=== PATIENT | female | born 1940 | race Two or more races ===

== ENCOUNTER 2020-09-21 20:46 | Inpatient (IN) | payer MEDICARE, OTHER ==
[~2020-09-21] VITALS: Ht 152.4 cm; Wt 31.3 kg
[2020-09-21 21:00] VITALS: BP 116/69
--- NOTE | 2020-09-21 21:14 | Emergency Room Report ---
History of Present Illness General Chief Complaint: Chest Pain Source: Patient (Alphonse Pagan MD) Present Illness HPI Disclaimer: Please note that this report is being documented using [employer] technology. This can lead to erroneous entry secondary to incorrect interpretat ion by the dictating instrument. HPI: 1-year-old female history of hypertension, hyperlipidemia and dementia presents for evaluation of chest pain, abdominal pain and back pain. Patient has history of dementia but her daughter is able to provide additional history. She states that over the past week her mother has had a decreased appetite, increased fatigue, somnolence. She is complaining of some abdominal and midline back pain over the past 2 days and then this morning began to complain of left- sided chest pain that she describes as a "tearing." Does not seem to go through to the back but she feels it is a pressure and ripping sensation. Pain seems to come and go. No exacerbating or relieving factors noted. Denies fever chills. Denies nausea or vomiting. Daughter notes decreased urine output. Covid status unknown. PMH: Hypertension, hyperlipidemia, dementia PSH: Reviewed Allergies: None reported Social Hx: Non-smoker (Alphonse Pagan MD) Allergies: Coded Allergies: No Known Allergies (Unverified , 09/21/20) COVID-19 Screening Contact w/high risk pt: No Experienced COVID-19 symptoms?: No COVID-19 Testing performed MEDIA RELATIONS COORDINATOR: No (Alphonse Pagan MD) Patient History Now: No (Alphonse Pagan MD) Nursing Documentation-PMH Hx Hypertension: Yes (Alphonse Pagan MD) Review of Systems All Other Systems: negative except mentioned in HPI (Alphonse Pagan MD) Physical Exam Vital Signs Date Time Temp Pulse Resp B/P (MAP) Pulse Ox O2 Delivery O2 Flow Rate FiO2 09/21/20 20:52 98.1 98 18 111/68 (82) 90 Room Air General: Awake, anxious, agitated HEENT: NC/AT. EOMI. Cardiovascular: RRR. S1 and S2 normal. No murmur appreciated Resp: Normal work of breathing. No cough, wheezing or crackles appreciated Abdomen: Abdomen is soft, nondistended. Nontender Skin: Intact. No abrasions, laceration or rash over the exposed skin MSK: Frail, decreased muscle bulk. No obvious deformity. No midline tenderness or step-off or deformity in the cervical, thoracic or lumbosacral spine. Neuro: Awake. Agitated, very anxious and frantic (Alphonse Pagan MD) Medical Decision Making Diagnostic Impression: Primary Impression: Chest pain Additional Impression: Pneumonia ER Course Differential includes but not limited to viral syndrome, bronchitis, pneumonia, musculoskeletal chest pain, GERD, ACS, thoracic aneurysm, abdominal aortic aneurysm, gastritis, gastroenteritis pancreatitis, cholecystitis, nephrolithiasis, mesenteric ischemia, bowel obstruction among others. EKG on arrival is difficult to interpret due to patient agitation. Will provide analgesics and repeat though there are no obvious ischemic changes. Concern for aneurysm will send for CTA and draw broad labs. The patient will require admission. (Alphonse Pagan MD) ER Course Procedure: XRAY Chest 1v EXAM: XR Chest, 1 View CLINICAL HISTORY: CP TECHNIQUE: Frontal view of the chest. COMPARISON: No relevant prior studies available. FINDINGS: Lungs: Moderate amount of scattered patchy airspace opacities in both lungs, worse over middle and lower lung zones. Pleural space: Unremarkable. No pneumothorax. Mediastinum: Unremarkable. Bones/joints: Osteopenia. Vasculature: Calcified aorta. IMPRESSION: Bilateral pneumonia. Recommend Followup to resolution to rule out potential underlying neoplastic etiologies. Laboratory Tests Test 09/21/20 21:33 White Blood Count 14.2 K/UL (4.8-10.8) H Red Blood Count 3.59 M/UL (4.20-5.40) L Hemoglobin 10.5 G/DL (12.0-16.0) L Hematocrit 29.8 % (37.0-47.0) L Mean Corpuscular Volume 83 FL (80-99) Mean Corpuscular Hemoglobin 29.4 PG (27.0-31.0) Mean Corpuscular Hemoglobin Concent 35.4 G/DL (32.0-36.0) Red Cell Distribution Width 14.3 % (11.6-14.8) Platelet Count 300 K/UL (150-450) Mean Platelet Volume 8.9 FL (6.5-10.1) Neutrophils (%) (Auto) 89.9 % (45.0-75.0) H Lymphocytes (%) (Auto) 5.4 % (20.0-45.0) L Monocytes (%) (Auto) 3.8 % (1.0-10.0) Eosinophils (%) (Auto) 0.3 % (0.0-3.0) Basophils (%) (Auto) 0.7 % (0.0-2.0) Prothrombin Time 12.1 SEC (9.30-11.50) H Prothrombin Time INR 1.1 (0.9-1.1) Activated Partial Thromboplast Time 29 SEC (23-33) D-Dimer 1.91 mg/L FEU (0.00-0.49) H Sodium Level 140 MMOL/L (136-145) Potassium Level 3.2 MMOL/L (3.5-5.1) L Chloride Level 103 MMOL/L (98-107) Carbon Dioxide Level 29 MMOL/L (21-32) Anion Gap 8 mmol/L (5-15) Blood Urea Nitrogen 19 mg/dL (7-18) H Creatinine 1.0 MG/DL (0.55-1.30) Estimated Glomerular Filtration Rate 53.1 mL/min (>60) Glucose Level 151 MG/DL (74-106) H Calcium Level 8.6 MG/DL (8.5-10.1) Ferritin 298 NG/ML (8-388) Total Bilirubin 0.4 MG/DL (0.2-1.0) Aspartate Amino Transferase (AST) 16 U/L (15-37) Alanine Aminotransferase (ALT) 14 U/L (12-78) Alkaline Phosphatase 68 U/L (46-116) Lactate Dehydrogenase 323 U/L (81-234) H Troponin I 0.005 ng/mL (0.000-0.056) Pro-B-Type Natriuretic Peptide Pending Total Protein 7.5 G/DL (6.4-8.2) Albumin 2.8 G/DL (3.4-5.0) L Globulin 4.7 g/dL Albumin/Globulin Ratio 0.6 (1.0-2.7) L Microbiology Date/Time Source Procedure Growth Status 09/21/20 01:35 Nasopharynx SARS-CoV-2 RdRp Gene Assay - Final Complete 80-year-old female here with chest pain. Patient's chest x-ray revealed bilateral pneumonia. Patient had a leukocytosis with white blood cell count of 14,000. Attempts were made to perform a CT angiogram to rule out aortic dissection as a cause of the patient's chest pain. However the patient was incredibly hostile and noncompliant. Patient received Ativan, Benadryl, Haldol without much resolution of her erratic behavior. Patient's daughter bedside says "this is how she gets at night. That is why she gets Seroquel." Attempts will be made to perform CTA. Patient was given ceftriaxone and azithromycin to treat community-acquired pneumonia. Covid swab negative. Patient to be admitted to telemetry. This was all discussed with the admitting physician Dr. Haley. (Marvin Monsalve M.D.) EKG Diagnostic Results Troponin ordered: Yes When was troponin ordered?: Sep 21, 2020 EKG Time: 21:49 Rate: normal Rhythm: NSR ST Segments: no acute changes Other Impression Sinus rhythm, normal axis, normal intervals, no ST segment changes (Alphonse Pagan MD) Rhythm Strip Diag. Results Rhythm Strip Time: 21:49 EP Interpretation: yes Rate: 90s Rhythm: NSR, no PVC's, no ectopy (Alphonse Pagan MD) Chest X-Ray Diagnostic Results Chest X-Ray Diagnostic Results : Chest X-Ray Ordered: Yes # of Views/Limited/Complete: 1 View Indication: Chest Pain EP Interpretation: Yes Interpretation: no effusion, no pneumothorax, other - Bilateral infiltrates Impression: Other - Bilateral pneumonia Electronically Signed by: Electronically signed by Dr. Alphonse Pagan MD (Alphonse Pagan MD) Last Vital Signs Date Time Temp Pulse Resp B/P (MAP) Pulse Ox O2 Delivery O2 Flow Rate FiO2 09/21/20 20:52 98.1 98 18 111/68 (82) 90 Room Air (Alphonse Pagan MD) Disposition: ADMITTED INPATIENT Condition: Serious Referrals: Roseanne Haley M.D. (PCP) Alphonse Pagan MD Sep 21, 2020 21:14 Marvin Monsalve M.D. Sep 22, 2020 03:12
[2020-09-21] MEDS ORDERED: LORazepam Inj 2mg/ml 1ml IV ONE ×2 (21:15→23:45)
--- NOTE | 2020-09-21 21:15 | NUR ---
Note tesfaye in EDM - 09/22/20 at 0151 by QI ED Nurse Note: pt walked into the Ed due to tearing chest pain,generalize weakness, and loss of appetite. pt vitals are stabel, monitor on, no sob, no fever, and no cough. Iv intatied; blood and urine sent to the lab. pt daughter is with the pt.
--- NOTE | 2020-09-21 21:16 | NUR ---
ED Nurse Note: pt walked into the Ed c/o tearing like chest pain,generalize weakness, and loss of appetite x 1 week. monitor on; vitals are stable.No sob,cough, and fever at the moment. Iv initiated; blood and urine sent to the lab. pt daughter is with the pt.
[2020-09-21 22:17] LABS: HEMATOCRIT 29.8 % (37.0-47.0); HEMOGLOBIN 10.5 G/DL (12.0-16.0); MEAN CORPUSCULAR VOLUME 83 FL (80-99); PLATELET COUNT 300 K/UL (150-450); RED BLOOD COUNT 3.59 M/UL (4.20-5.40); RED CELL DISTRIBUTION WIDTH 14.3 % (11.6-14.8); WHITE BLOOD COUNT 14.2 K/UL (4.8-10.8)
[2020-09-21 22:18] LABS: BASOPHILS % (AUTO) 0.7 % (0.0-2.0); EOSINOPHILS % (AUTO) 0.3 % (0.0-3.0); LYMPHOCYTES % (AUTO) 5.4 % (20.0-45.0); MONOCYTES % (AUTO) 3.8 % (1.0-10.0); NEUTROPHILS % (AUTO) 89.9 % (45.0-75.0)
[2020-09-21 22:28] LABS: INR 1.1 (0.9-1.1)
--- NOTE | 2020-09-21 22:45 | Diagnostic Imaging Report ---
EXAM: XR Chest, 1 View CLINICAL HISTORY: CP TECHNIQUE: Frontal view of the chest. COMPARISON: No relevant prior studies available. FINDINGS: Lungs: Moderate amount of scattered patchy airspace opacities in both lungs, worse over middle and lower lung zones. Pleural space: Unremarkable. No pneumothorax. Mediastinum: Unremarkable. Bones/joints: Osteopenia. Vasculature: Calcified aorta. IMPRESSION: Bilateral pneumonia. Recommend Followup to resolution to rule out potential underlying neoplastic etiologies.
[2020-09-21 23:00] VITALS: BP 116/72
[2020-09-21 23:07] LABS: CALCIUM 8.6 MG/DL (8.5-10.1); POTASSIUM 3.2 MMOL/L (3.5-5.1)
[2020-09-21 23:12] LABS: ALBUMIN 2.8 G/DL (3.4-5.0); ALBUMIN/GLOBULIN RATIO 0.6 (1.0-2.7); BILIRUBIN,TOTAL 0.4 MG/DL (0.2-1.0)
[2020-09-21 23:18] LABS: FERRITIN 298 NG/ML (8-388); LACTATE DEHYDROGENASE 323 U/L (81-234)
[2020-09-22] MEDS ORDERED: Haloperidol Lactate 2 MG in D5W 55 ML IVPB ONE ×2 (00:30→02:00)
[2020-09-22 00:45] VITALS: BP 117/69
--- NOTE | 2020-09-22 00:47 | NUR ---
ED Nurse Note: pt is restless to get ct scan. two 0.5ml ativan given but didnt work. haldol given and waiting until the haldol works.
[2020-09-22] MEDS ORDERED: cefTRIAXone 1 GM in NS 55 ML IVPB ONE (01:30)
[2020-09-22] MEDS ORDERED: Azithromycin 500 MG in NS 275 ML IV ONE (01:30)
[2020-09-22] MEDS ORDERED: DiphenhydrAMINE 50mg/ml Inj IVP ONE (02:00)
--- NOTE | 2020-09-22 02:35 | NUR ---
ED Nurse Note: pt is agitated, anxious, pulled out iv and she took off the monitor. EDMD aware and he ordered; haldol, bendryl, and bilateral soft restrains.
--- NOTE | 2020-09-22 04:00 | NUR ---
ED Nurse Note: pt is on the bed talking with her daughter. Her vitals are stable .
[2020-09-22 06:22] LABS: BASOPHILS % (AUTO) 0.9 % (0.0-2.0); HEMATOCRIT 30.8 % (37.0-47.0); HEMOGLOBIN 10.5 G/DL (12.0-16.0); LYMPHOCYTES % (AUTO) 11.3 % (20.0-45.0); MEAN CORPUSCULAR VOLUME 85 FL (80-99); MONOCYTES % (AUTO) 4.1 % (1.0-10.0); NEUTROPHILS % (AUTO) 82.8 % (45.0-75.0); PLATELET COUNT 230 K/UL (150-450); RED BLOOD COUNT 3.64 M/UL (4.20-5.40); RED CELL DISTRIBUTION WIDTH 13.2 % (11.6-14.8); WHITE BLOOD COUNT 9.3 K/UL (4.8-10.8)
[2020-09-22 06:47] LABS: ALANINE AMINOTRANSFERASE 11 U/L (12-78); ALBUMIN 2.2 G/DL (3.4-5.0); ALBUMIN/GLOBULIN RATIO 0.5 (1.0-2.7); ALKALINE PHOSPHATASE 54 U/L (46-116); ANION GAP 8 mmol/L (5-15); ASPARTATE AMINO TRANSFERASE 14 U/L (15-37); BILIRUBIN,TOTAL 0.3 MG/DL (0.2-1.0); BLOOD UREA NITROGEN 12 mg/dL (7-18); CARBON DIOXIDE 25 MMOL/L (21-32); CHLORIDE 110 MMOL/L (98-107); CREATININE 0.6 MG/DL (0.55-1.30); SODIUM 143 MMOL/L (136-145)
[2020-09-22 06:58] LABS: POTASSIUM 2.7 MMOL/L (3.5-5.1)
--- NOTE | 2020-09-22 07:45 | NUR ---
ED Nurse Note: Received pt from VIRGILIO Fuller for continuity of care. Pt on bed, awake and alert, noted with occassional confusion, VSS, attached on policy loan calculator, IV site patent and intact, blood drawn for cultures, daughter at bedside. will continue to monitor.
--- NOTE | 2020-09-22 07:48 | NUR ---
ED Nurse Note: Breakfast tray consumed, no acute distress noted.
[2020-09-22] MEDS: NS w/KCl 40mEq 1,000 ML IV SCH ×4 (08:15→23:46)
[2020-09-22 08:33] VITALS: BP 121/72
--- NOTE | 2020-09-22 08:52 | NUR ---
ED Nurse Note: Pt complains of headache and L sided chest pain as mentioned by her daughter. Notified ERMD.
[2020-09-22] MEDS ORDERED: Morphine Sulfate 2mg/ml Inj(IV/IM USE ONLY) IVP ONE (09:00)
--- NOTE | 2020-09-22 09:42 | Consultation ---
History of Present Illness General Chief Complaint: Chest Pain Referring physician: Sudha Reason for Consultation: Medical co-management Present Illness HPI History is limited due to patient's altered mental status. This is a 80-year-old female with a past medical history of hypertension, hyperlipidemia, dementia who presents to the ER with chest pain and cough. Allergies: Coded Allergies: No Known Allergies (Unverified , 09/21/20) Medication History Scheduled Amlodipine Besylate (Norvasc), 10 MG ORAL DAILY, (Reported) Amoxicillin/Potassium Clav 875-125* (Augmentin 875-125 Tablet*), 1 TAB ORAL TWICE A DAY Benazepril Hcl* (Benazepril Hcl*), 40 MG ORAL DAILY, (Reported) Doxycycline Monohydrate* (Doxycycline Monohydrate*), 100 MG ORAL Q12H Memantine HCl (Memantine HCl ER), 21 MG PO QD, (Reported) Mirtazapine* (Mirtazapine*), 7.5 MG ORAL BEDTIME, (Reported) Quetiapine Fumarate (Seroquel), 50 MG ORAL QHS, (Reported) Scheduled PRN Trazodone Hcl* (Desyrel*), 50 MG ORAL BEDTIME PRN for qhs, (Reported) Patient History Limited by: medical condition History Provided By: Medical Record, EMS Healthcare decision maker Resuscitation status Full per policy Advanced Directive on File Physical Exam Last 24 Hour Vital Signs Date Time Temp Pulse Resp B/P (MAP) Pulse Ox O2 Delivery O2 Flow Rate FiO2 09/22/20 08:33 97.8 88 16 121/72 98 Room Air 09/22/20 00:45 97.6 96 18 117/69 97 Room Air 09/21/20 23:48 92 19 113/72 98 09/21/20 23:00 97.6 89 18 116/72 97 Room Air 09/21/20 21:50 96 19 119/69 98 09/21/20 21:50 96 19 119/69 98 09/21/20 21:20 98 18 111/68 90 09/21/20 21:00 97 18 Room Air 09/21/20 21:00 97.9 97 19 116/69 97 09/21/20 20:52 98.1 98 18 111/68 (82) 90 Room Air Laboratory Tests Test 09/21/20 21:33 09/22/20 05:55 White Blood Count 14.2 K/UL (4.8-10.8) H 9.3 K/UL (4.8-10.8) Red Blood Count 3.59 M/UL (4.20-5.40) L 3.64 M/UL (4.20-5.40) L Hemoglobin 10.5 G/DL (12.0-16.0) L 10.5 G/DL (12.0-16.0) L Hematocrit 29.8 % (37.0-47.0) L 30.8 % (37.0-47.0) L Mean Corpuscular Volume 83 FL (80-99) 85 FL (80-99) Mean Corpuscular Hemoglobin 29.4 PG (27.0-31.0) 28.9 PG (27.0-31.0) Mean Corpuscular Hemoglobin Concent 35.4 G/DL (32.0-36.0) 34.2 G/DL (32.0-36.0) Red Cell Distribution Width 14.3 % (11.6-14.8) 13.2 % (11.6-14.8) Platelet Count 300 K/UL (150-450) 230 K/UL (150-450) Mean Platelet Volume 8.9 FL (6.5-10.1) 8.6 FL (6.5-10.1) Neutrophils (%) (Auto) 89.9 % (45.0-75.0) H 82.8 % (45.0-75.0) H Lymphocytes (%) (Auto) 5.4 % (20.0-45.0) L 11.3 % (20.0-45.0) L Monocytes (%) (Auto) 3.8 % (1.0-10.0) 4.1 % (1.0-10.0) Eosinophils (%) (Auto) 0.3 % (0.0-3.0) 1.0 % (0.0-3.0) Basophils (%) (Auto) 0.7 % (0.0-2.0) 0.9 % (0.0-2.0) Prothrombin Time 12.1 SEC (9.30-11.50) H Prothromb Time International Ratio 1.1 (0.9-1.1) Activated Partial Thromboplast Time 29 SEC (23-33) D-Dimer 1.91 mg/L FEU (0.00-0.49) H Sodium Level 140 MMOL/L (136-145) 143 MMOL/L (136-145) Potassium Level 3.2 MMOL/L (3.5-5.1) L 2.7 MMOL/L (3.5-5.1) *L Chloride Level 103 MMOL/L (98-107) 110 MMOL/L (98-107) H Carbon Dioxide Level 29 MMOL/L (21-32) 25 MMOL/L (21-32) Anion Gap 8 mmol/L (5-15) 8 mmol/L (5-15) Blood Urea Nitrogen 19 mg/dL (7-18) H 12 mg/dL (7-18) Creatinine 1.0 MG/DL (0.55-1.30) 0.6 MG/DL (0.55-1.30) Estimat Glomerular Filtration Rate 53.1 mL/min (>60) > 60 mL/min (>60) Glucose Level 151 MG/DL (74-106) H 72 MG/DL (74-106) L Calcium Level 8.6 MG/DL (8.5-10.1) 7.0 MG/DL (8.5-10.1) L Ferritin 298 NG/ML (8-388) Total Bilirubin 0.4 MG/DL (0.2-1.0) 0.3 MG/DL (0.2-1.0) Aspartate Amino Transf (AST/SGOT) 16 U/L (15-37) 14 U/L (15-37) L Alanine Aminotransferase (ALT/SGPT) 14 U/L (12-78) 11 U/L (12-78) L Alkaline Phosphatase 68 U/L (46-116) 54 U/L (46-116) Lactate Dehydrogenase 323 U/L (81-234) H Troponin I 0.005 ng/mL (0.000-0.056) Pro-B-Type Natriuretic Peptide Pending Total Protein 7.5 G/DL (6.4-8.2) 6.3 G/DL (6.4-8.2) L Albumin 2.8 G/DL (3.4-5.0) L 2.2 G/DL (3.4-5.0) L Globulin 4.7 g/dL 4.1 g/dL Albumin/Globulin Ratio 0.6 (1.0-2.7) L 0.5 (1.0-2.7) L Height (Feet): 5 Weight (Pounds): 82 Medications Current Medications Medications (Trade) Dose Ordered Sig/Martin Route PRN Reason Start Time Stop Time Status Last Admin Dose Admin Potassium Chloride/Sodium Chloride 1,000 ml @ 200 mls/hr Q5H IV 09/22/20 07:00 09/23/20 06:59 09/22/20 08:15 Marvin Romeo D.O. Sep 22, 2020 09:42
--- NOTE | 2020-09-22 10:21 | Consultation ---
History of Present Illness General Chief Complaint: Chest Pain Reason for Consultation: Electrolyte deranagements Present Illness HPI This is an 80-year-old female with a past medical history of hypertension, hyperlipidemia and dementia. Over the past week the patient has had decreased appetite increased fatigue and somnolence. She was complaining of some abdominal pain, back pain for 2 days. Left-sided chest pain that she describes a tearing sensation. The ren is intermittent. Denies anything making it better or worse. The patient tested negative for COVID-19. In the ER Chest x-ray showed bilateral pneumonia. An attempt was made to perform CT angio to rule out aortic dissection, however patient altered and erratic. Attempts to be made to perform CTA. The patient received ceftriaxone and azithromycin once to treat community-acquired pneumonia. The patient then admitted to telemetry. Awaiting bed placement. Allergies: Coded Allergies: No Known Allergies (Unverified , 09/21/20) Medication History Scheduled Amlodipine Besylate (Norvasc), 10 MG ORAL DAILY, (Reported) Benazepril Hcl* (Benazepril Hcl*), 40 MG ORAL DAILY, (Reported) Memantine HCl (Memantine HCl ER), 21 MG PO QD, (Reported) Mirtazapine* (Mirtazapine*), 7.5 MG ORAL BEDTIME, (Reported) Quetiapine Fumarate (Seroquel), 50 MG ORAL QHS, (Reported) Scheduled PRN Trazodone Hcl* (Desyrel*), 50 MG ORAL BEDTIME PRN for qhs, (Reported) Patient History Healthcare decision maker Resuscitation status Advanced Directive on File Review of Systems ROS Narrative unable to obtain due to AMS Physical Exam General Appearance: lethargic Lines, tubes and drains: peripheral HEENT: normocephalic, atraumatic Neck: non-tender, normal alignment Respiratory/Chest: chest wall non-tender, lungs clear, normal breath sounds Cardiovascular/Chest: normal peripheral pulses, normal rate Abdomen: normal bowel sounds, non tender Neurologic: disoriented Last 24 Hour Vital Signs Date Time Temp Pulse Resp B/P (MAP) Pulse Ox O2 Delivery O2 Flow Rate FiO2 09/22/20 08:33 97.8 88 16 121/72 98 Room Air 09/22/20 00:45 97.6 96 18 117/69 97 Room Air 09/21/20 23:48 92 19 113/72 98 09/21/20 23:00 97.6 89 18 116/72 97 Room Air 09/21/20 21:50 96 19 119/69 98 09/21/20 21:50 96 19 119/69 98 09/21/20 21:20 98 18 111/68 90 09/21/20 21:00 97 18 Room Air 09/21/20 21:00 97.9 97 19 116/69 97 09/21/20 20:52 98.1 98 18 111/68 (82) 90 Room Air Laboratory Tests Test 09/21/20 21:33 09/22/20 05:55 White Blood Count 14.2 K/UL (4.8-10.8) H 9.3 K/UL (4.8-10.8) Red Blood Count 3.59 M/UL (4.20-5.40) L 3.64 M/UL (4.20-5.40) L Hemoglobin 10.5 G/DL (12.0-16.0) L 10.5 G/DL (12.0-16.0) L Hematocrit 29.8 % (37.0-47.0) L 30.8 % (37.0-47.0) L Mean Corpuscular Volume 83 FL (80-99) 85 FL (80-99) Mean Corpuscular Hemoglobin 29.4 PG (27.0-31.0) 28.9 PG (27.0-31.0) Mean Corpuscular Hemoglobin Concent 35.4 G/DL (32.0-36.0) 34.2 G/DL (32.0-36.0) Red Cell Distribution Width 14.3 % (11.6-14.8) 13.2 % (11.6-14.8) Platelet Count 300 K/UL (150-450) 230 K/UL (150-450) Mean Platelet Volume 8.9 FL (6.5-10.1) 8.6 FL (6.5-10.1) Neutrophils (%) (Auto) 89.9 % (45.0-75.0) H 82.8 % (45.0-75.0) H Lymphocytes (%) (Auto) 5.4 % (20.0-45.0) L 11.3 % (20.0-45.0) L Monocytes (%) (Auto) 3.8 % (1.0-10.0) 4.1 % (1.0-10.0) Eosinophils (%) (Auto) 0.3 % (0.0-3.0) 1.0 % (0.0-3.0) Basophils (%) (Auto) 0.7 % (0.0-2.0) 0.9 % (0.0-2.0) Prothrombin Time 12.1 SEC (9.30-11.50) H Prothromb Time International Ratio 1.1 (0.9-1.1) Activated Partial Thromboplast Time 29 SEC (23-33) D-Dimer 1.91 mg/L FEU (0.00-0.49) H Sodium Level 140 MMOL/L (136-145) 143 MMOL/L (136-145) Potassium Level 3.2 MMOL/L (3.5-5.1) L 2.7 MMOL/L (3.5-5.1) *L Chloride Level 103 MMOL/L (98-107) 110 MMOL/L (98-107) H Carbon Dioxide Level 29 MMOL/L (21-32) 25 MMOL/L (21-32) Anion Gap 8 mmol/L (5-15) 8 mmol/L (5-15) Blood Urea Nitrogen 19 mg/dL (7-18) H 12 mg/dL (7-18) Creatinine 1.0 MG/DL (0.55-1.30) 0.6 MG/DL (0.55-1.30) Estimat Glomerular Filtration Rate 53.1 mL/min (>60) > 60 mL/min (>60) Glucose Level 151 MG/DL (74-106) H 72 MG/DL (74-106) L Calcium Level 8.6 MG/DL (8.5-10.1) 7.0 MG/DL (8.5-10.1) L Ferritin 298 NG/ML (8-388) Total Bilirubin 0.4 MG/DL (0.2-1.0) 0.3 MG/DL (0.2-1.0) Aspartate Amino Transf (AST/SGOT) 16 U/L (15-37) 14 U/L (15-37) L Alanine Aminotransferase (ALT/SGPT) 14 U/L (12-78) 11 U/L (12-78) L Alkaline Phosphatase 68 U/L (46-116) 54 U/L (46-116) Lactate Dehydrogenase 323 U/L (81-234) H Troponin I 0.005 ng/mL (0.000-0.056) Pro-B-Type Natriuretic Peptide Pending Total Protein 7.5 G/DL (6.4-8.2) 6.3 G/DL (6.4-8.2) L Albumin 2.8 G/DL (3.4-5.0) L 2.2 G/DL (3.4-5.0) L Globulin 4.7 g/dL 4.1 g/dL Albumin/Globulin Ratio 0.6 (1.0-2.7) L 0.5 (1.0-2.7) L Height (Feet): 5 Weight (Pounds): 82 Medications Current Medications Medications (Trade) Dose Ordered Sig/Martin Route PRN Reason Start Time Stop Time Status Last Admin Dose Admin Potassium Chloride/Sodium Chloride 1,000 ml @ 200 mls/hr Q5H IV 09/22/20 07:00 09/23/20 06:59 09/22/20 08:15 Assessment/Plan Diagnosis [place] I: #Hypokalemia #Sepsis #Pneumonia #Hypoxemic respiratory failure #AMS #history of dementia - admit to [facility] - IVF - antibiotics - ID eval - pulm eval - neuro eval - monitor renal function time spent 65 min Roseanne Haley M.D. Sep 22, 2020 10:20
[2020-09-22 12:00] VITALS: BP 118/76
[2020-09-22] MEDS ORDERED: Haloperidol 5mg/ml Inj IM ONE (12:00)
--- NOTE | 2020-09-22 14:18 | NUR ---
ED Nurse Note: mills catheter inserted today for intake and output and pt comfort measures. pt on bed, awake and alert, no acute distress noted.
--- NOTE | 2020-09-22 17:10 | Infectious Diseases Prog Note ---
Assessment/Plan Assessment/Plan Full consult to follow: patient seen in ER A) 1) pneumonia, leukocytosis, ? sepsis, aspiration risk 2) pmh noted 3) allergies - nkda P) 1) ceftriaxone, azithromycin, flagyl 2) f/u on labs, chest x-ray and cultures 3) will f/u 4) thank you Subjective Allergies: Coded Allergies: No Known Allergies (Unverified , 09/21/20) Objective Last 24 Hour Vital Signs Date Time Temp Pulse Resp B/P (MAP) Pulse Ox O2 Delivery O2 Flow Rate FiO2 09/22/20 12:00 97.8 88 15 118/76 99 Room Air 09/22/20 09:26 97.8 09/22/20 08:33 97.8 88 16 121/72 98 Room Air 09/22/20 00:45 97.6 96 18 117/69 97 Room Air 09/21/20 23:48 92 19 113/72 98 09/21/20 23:00 97.6 89 18 116/72 97 Room Air 09/21/20 21:50 96 19 119/69 98 09/21/20 21:50 96 19 119/69 98 09/21/20 21:20 98 18 111/68 90 09/21/20 21:00 97 18 Room Air 09/21/20 21:00 97.9 97 19 116/69 97 09/21/20 20:52 98.1 98 18 111/68 (82) 90 Room Air Height (Feet): 5 Weight (Pounds): 82 Microbiology Date/Time Source Procedure Growth Status 09/21/20 01:35 Nasopharynx SARS-CoV-2 RdRp Gene Assay - Final Complete Laboratory Tests Test 09/21/20 21:33 09/22/20 05:55 White Blood Count 14.2 K/UL (4.8-10.8) H 9.3 K/UL (4.8-10.8) Red Blood Count 3.59 M/UL (4.20-5.40) L 3.64 M/UL (4.20-5.40) L Hemoglobin 10.5 G/DL (12.0-16.0) L 10.5 G/DL (12.0-16.0) L Hematocrit 29.8 % (37.0-47.0) L 30.8 % (37.0-47.0) L Mean Corpuscular Volume 83 FL (80-99) 85 FL (80-99) Mean Corpuscular Hemoglobin 29.4 PG (27.0-31.0) 28.9 PG (27.0-31.0) Mean Corpuscular Hemoglobin Concent 35.4 G/DL (32.0-36.0) 34.2 G/DL (32.0-36.0) Red Cell Distribution Width 14.3 % (11.6-14.8) 13.2 % (11.6-14.8) Platelet Count 300 K/UL (150-450) 230 K/UL (150-450) Mean Platelet Volume 8.9 FL (6.5-10.1) 8.6 FL (6.5-10.1) Neutrophils (%) (Auto) 89.9 % (45.0-75.0) H 82.8 % (45.0-75.0) H Lymphocytes (%) (Auto) 5.4 % (20.0-45.0) L 11.3 % (20.0-45.0) L Monocytes (%) (Auto) 3.8 % (1.0-10.0) 4.1 % (1.0-10.0) Eosinophils (%) (Auto) 0.3 % (0.0-3.0) 1.0 % (0.0-3.0) Basophils (%) (Auto) 0.7 % (0.0-2.0) 0.9 % (0.0-2.0) Prothrombin Time 12.1 SEC (9.30-11.50) H Prothromb Time International Ratio 1.1 (0.9-1.1) Activated Partial Thromboplast Time 29 SEC (23-33) D-Dimer 1.91 mg/L FEU (0.00-0.49) H Sodium Level 140 MMOL/L (136-145) 143 MMOL/L (136-145) Potassium Level 3.2 MMOL/L (3.5-5.1) L 2.7 MMOL/L (3.5-5.1) *L Chloride Level 103 MMOL/L (98-107) 110 MMOL/L (98-107) H Carbon Dioxide Level 29 MMOL/L (21-32) 25 MMOL/L (21-32) Anion Gap 8 mmol/L (5-15) 8 mmol/L (5-15) Blood Urea Nitrogen 19 mg/dL (7-18) H 12 mg/dL (7-18) Creatinine 1.0 MG/DL (0.55-1.30) 0.6 MG/DL (0.55-1.30) Estimat Glomerular Filtration Rate 53.1 mL/min (>60) > 60 mL/min (>60) Glucose Level 151 MG/DL (74-106) H 72 MG/DL (74-106) L Calcium Level 8.6 MG/DL (8.5-10.1) 7.0 MG/DL (8.5-10.1) L Ferritin 298 NG/ML (8-388) Total Bilirubin 0.4 MG/DL (0.2-1.0) 0.3 MG/DL (0.2-1.0) Aspartate Amino Transf (AST/SGOT) 16 U/L (15-37) 14 U/L (15-37) L Alanine Aminotransferase (ALT/SGPT) 14 U/L (12-78) 11 U/L (12-78) L Alkaline Phosphatase 68 U/L (46-116) 54 U/L (46-116) Lactate Dehydrogenase 323 U/L (81-234) H Troponin I 0.005 ng/mL (0.000-0.056) Pro-B-Type Natriuretic Peptide Pending Total Protein 7.5 G/DL (6.4-8.2) 6.3 G/DL (6.4-8.2) L Albumin 2.8 G/DL (3.4-5.0) L 2.2 G/DL (3.4-5.0) L Globulin 4.7 g/dL 4.1 g/dL Albumin/Globulin Ratio 0.6 (1.0-2.7) L 0.5 (1.0-2.7) L Current Medications Medications (Trade) Dose Ordered Sig/Martin Route PRN Reason Start Time Stop Time Status Last Admin Dose Admin Azithromycin 500 mg/Dextrose 275 ml @ 275 mls/hr Q24HRS IV 09/23/20 01:00 09/28/20 00:59 Ceftriaxone Sodium 1 gm/ Dextrose 55 ml @ 110 mls/hr Q24HRS IVPB 09/23/20 00:00 09/30/20 00:00 Potassium Chloride/Sodium Chloride 1,000 ml @ 200 mls/hr Q5H IV 09/22/20 07:00 09/23/20 06:59 09/22/20 12:00 Shan Arnold MD Sep 22, 2020 17:10
--- NOTE | 2020-09-22 19:15 | Consultation ---
DATE OF CONSULTATION: 09/22/2020 CONSULTING PHYSICIAN: Rosemary Jimenez ATTENDING PHYSICIAN: Dr. Haley. REASON FOR CONSULTATION: Pneumonia. HISTORY OF PRESENT ILLNESS: This is an 80-year-old female with history of hypertension, hyperlipidemia, dementia, who presented for evaluation of chest pain, abdominal pain, and back pain. The patient has dementia, but her daughter is present with her in the ER to provide additional history. Daughter states over the past week her mother has had a decreased appetite, increased fatigue, somnolence. She is complaining of some abdominal pain in midline, back pain over the past 2 days, then this morning began to complain of left-sided chest pain that she described as tearing. The patient reports it is a pressure-like and ripping sensation. The patient seems to wax and wane. Denies exacerbating or relieving factors. Denies fever, chills, nausea, vomiting. Daughter noted decreased urine output. The patient tested negative for COVID-19. Chest x-ray showed bilateral pneumonia. Attempts were made to perform a CT angiogram to rule out aortic dissection as the cause of the patient's chest pain. However, she was acting erratic and noncompliant. Attempts will be made again to perform CTA. The patient received ceftriaxone and azithromycin once to treat community-acquired pneumonia. The patient will be admitted to telemetry. Awaiting bed placement. PAST MEDICAL HISTORY: Hypertension, hyperlipidemia, dementia. MEDICATIONS: Unknown. ALLERGIES: No known allergies. FAMILY HISTORY: Noncontributory. PERSONAL/SOCIAL HISTORY: Lives at home with family. REVIEW OF SYSTEMS: Negative except as mentioned in the HPI. PHYSICAL EXAMINATION: VITAL SIGNS: Blood pressure 121/72, heart rate 88, respiratory rate 16, weight 37 kg, height 152 cm. GENERAL: Awake, anxious, agitated. HEENT: Normocephalic, atraumatic. EOMI. CARDIOVASCULAR: Regular rate and rhythm. S1 and S2 normal. No murmur appreciated. RESPIRATORY: Normal work of breathing. No cough, wheezing, or crackles appreciated. ABDOMEN: Soft, nontender, nondistended. SKIN: Intact. No abrasions, lacerations, or rash over the exposed skin. MUSCULOSKELETAL: Frail, decreased muscle bulk. No obvious deformity. No midline tenderness or step-off or deformity in the cervical, thoracic, or lumbosacral spine. NEUROLOGIC: Awake, agitated, frantic. LABORATORY DATA: Lab testing shows hemoglobin 10.5, hematocrit 30.8. Chemistries show potassium 2.7, chloride 110, calcium 7.0. D-dimer 1.91. IMPRESSION: 1. Pneumonia - status post IV once azithromycin, ceftriaxone in the ER. - Currently saturating well on room air. - Provide supplemental oxygen as needed. - We will start azithromycin, Rocephin. 2. Chest pain - rule out aortic dissection with CT angiogram pending. We will follow. The care for this patient was discussed with my supervising physician. Time spent for this case was approximately 31 minutes. Casimiro Miranda M.D. BENNETT Davis DR: MARIAMA JOB#: [id number] CC: GLEN
--- NOTE | 2020-09-22 19:17 | NUR ---
HAND-OFF: Report recived from Manda POOLE.
--- NOTE | 2020-09-22 19:17 | NUR ---
ED Nurse Note: hand off given to dolores marie.
--- NOTE | 2020-09-22 19:45 | NUR ---
NURSE NOTES: Receive a report from VIRGILIO Knapp from ED.
--- NOTE | 2020-09-22 19:49 | NUR ---
ED Nurse Note: report given to elliot Wallace Rn.
[2020-09-22 20:00] VITALS: BP 131/76
--- NOTE | 2020-09-22 20:00 | NUR ---
TRANSFER TO FLOOR: Patient transferred to as ordered, per ER MD. Report given to RN Madison. Belongings and medications sent with pt. Belongings list present.Vitals stable on RA as documetned. Removed restraints as per policy.
--- NOTE | 2020-09-22 20:00 | NUR ---
NURSE NOTES: Pt admitted from ED via hospital bed. Awake but agitated. Mauritian speaking. No distress noted but trying to getting out of bed. On bed alarm. Given orientation and trying to calm her down. IV is running from ED. Bed is lowest and locked. Done check belonging list. Came with home medication and denture upper. Call light within reach. Will continue to monitor.
[2020-09-22 20:29] LABS: APPEARANCE,URINE CLEAR; BILIRUBIN, URINE NEGATIVE (NEGATIVE); COLOR,URINE PALE YELLOW; GLUCOSE, URINE (UA) NEGATIVE (NEGATIVE); KETONES,URINE NEGATIVE (NEGATIVE); LEUKOCYTE ESTERASE ,URINE NEGATIVE (NEGATIVE); NITRITE,URINE NEGATIVE (NEGATIVE); PH,URINE 7 (4.5-8.0); PROTEIN,URINE 1+ (NEGATIVE); UROBILINOGEN,URINE NORMAL MG/DL (0.0-1.0)
--- NOTE | 2020-09-22 20:41 | History and Physical ---
History of Present Illness General Date patient seen: Sep 22, 2020 Reason for Hospitalization: Chest Pain Present Illness Allergies: Coded Allergies: No Known Allergies (Unverified , 09/21/20) COVID-19 Screening Contact w/high risk pt: No Recent Travel to affected area: No Experienced COVID-19 symptoms?: No Patient History Limited by: medical condition History Provided By: Family Member, Medical Record Healthcare decision maker Resuscitation status Full per policy Advanced Directive on File Patient History Narrative History limited due to patient's altered mental status. pediatric genetic counselor used. This is an 80-year-old female with a past medical history of hypertension, hyperlipidemia and dementia. Over the past week the patient has had decreased appetite increased fatigue and somnolence. She was complaining of some abdominal pain, back pain for 2 days. Left-sided chest pain that she describes a tearing sensation. The ren is intermittent. Denies anything making it better or worse. The patient tested negative for COVID-19. In the ER Chest x-ray showed bilateral pneumonia. An attempt was made to perform CT angio to rule out aortic dissection, however patient altered and erratic. Attempts to be made to perform CTA. The patient received ceftriaxone and azithromycin once to treat community-acquired pneumonia. The patient then admitted to telemetry. Awaiting bed placement. Allergies: NKDA Medications: unknown at this time. RN to obtain Family history: Noncontributory Social history: lives with family. Unknown tobacco, etoh, drug use. Review of Systems ROS Narrative Unable to obtain due to ALOC Physical Exam Physical Exam Narrative General: WDWN male in NAD, A&O x 1. Altered in restraints. HEENT: Normocephalic cephalic atraumatic, pupils equal round reactive to light and accommodation, nares patent and no symmetrical, no tonsillar exudates, mucous membranes moist CV: Regular rate regular rhythm, no murmurs, rubs, or gallops Pulm: Lungs clear to auscultation bilaterally. No wheezes, rhonchi, or rales GI: Soft, nontender, nondistended, bowel sounds present Neuro: CN 2-12 intact bilaterally, no focal signs. Ext: No lower extremity edema bilaterally Skin: no rashes lesions or ulcers Msk: Joints symmetrical in upper extremity and lower extremity bilaterally, no joint swelling. Lymph: No lymphadenopathy in upper extremity and lower extremity Last 24 Hour Vital Signs Date Time Temp Pulse Resp B/P (MAP) Pulse Ox O2 Delivery O2 Flow Rate FiO2 09/22/20 12:00 97.8 88 15 118/76 99 Room Air 09/22/20 09:26 97.8 09/22/20 08:33 97.8 88 16 121/72 98 Room Air 09/22/20 00:45 97.6 96 18 117/69 97 Room Air 09/21/20 23:48 92 19 113/72 98 09/21/20 23:00 97.6 89 18 116/72 97 Room Air 09/21/20 21:50 96 19 119/69 98 09/21/20 21:50 96 19 119/69 98 09/21/20 21:20 98 18 111/68 90 09/21/20 21:00 97 18 Room Air 09/21/20 21:00 97.9 97 19 116/69 97 09/21/20 20:52 98.1 98 18 111/68 (82) 90 Room Air Laboratory Tests Test 09/21/20 21:33 09/22/20 05:55 09/22/20 19:38 White Blood Count 14.2 K/UL (4.8-10.8) H 9.3 K/UL (4.8-10.8) Red Blood Count 3.59 M/UL (4.20-5.40) L 3.64 M/UL (4.20-5.40) L Hemoglobin 10.5 G/DL (12.0-16.0) L 10.5 G/DL (12.0-16.0) L Hematocrit 29.8 % (37.0-47.0) L 30.8 % (37.0-47.0) L Mean Corpuscular Volume 83 FL (80-99) 85 FL (80-99) Mean Corpuscular Hemoglobin 29.4 PG (27.0-31.0) 28.9 PG (27.0-31.0) Mean Corpuscular Hemoglobin Concent 35.4 G/DL (32.0-36.0) 34.2 G/DL (32.0-36.0) Red Cell Distribution Width 14.3 % (11.6-14.8) 13.2 % (11.6-14.8) Platelet Count 300 K/UL (150-450) 230 K/UL (150-450) Mean Platelet Volume 8.9 FL (6.5-10.1) 8.6 FL (6.5-10.1) Neutrophils (%) (Auto) 89.9 % (45.0-75.0) H 82.8 % (45.0-75.0) H Lymphocytes (%) (Auto) 5.4 % (20.0-45.0) L 11.3 % (20.0-45.0) L Monocytes (%) (Auto) 3.8 % (1.0-10.0) 4.1 % (1.0-10.0) Eosinophils (%) (Auto) 0.3 % (0.0-3.0) 1.0 % (0.0-3.0) Basophils (%) (Auto) 0.7 % (0.0-2.0) 0.9 % (0.0-2.0) Prothrombin Time 12.1 SEC (9.30-11.50) H Prothromb Time International Ratio 1.1 (0.9-1.1) Activated Partial Thromboplast Time 29 SEC (23-33) D-Dimer 1.91 mg/L FEU (0.00-0.49) H Sodium Level 140 MMOL/L (136-145) 143 MMOL/L (136-145) Potassium Level 3.2 MMOL/L (3.5-5.1) L 2.7 MMOL/L (3.5-5.1) *L Chloride Level 103 MMOL/L (98-107) 110 MMOL/L (98-107) H Carbon Dioxide Level 29 MMOL/L (21-32) 25 MMOL/L (21-32) Anion Gap 8 mmol/L (5-15) 8 mmol/L (5-15) Blood Urea Nitrogen 19 mg/dL (7-18) H 12 mg/dL (7-18) Creatinine 1.0 MG/DL (0.55-1.30) 0.6 MG/DL (0.55-1.30) Estimat Glomerular Filtration Rate 53.1 mL/min (>60) > 60 mL/min (>60) Glucose Level 151 MG/DL (74-106) H 72 MG/DL (74-106) L Calcium Level 8.6 MG/DL (8.5-10.1) 7.0 MG/DL (8.5-10.1) L Ferritin 298 NG/ML (8-388) Total Bilirubin 0.4 MG/DL (0.2-1.0) 0.3 MG/DL (0.2-1.0) Aspartate Amino Transf (AST/SGOT) 16 U/L (15-37) 14 U/L (15-37) L Alanine Aminotransferase (ALT/SGPT) 14 U/L (12-78) 11 U/L (12-78) L Alkaline Phosphatase 68 U/L (46-116) 54 U/L (46-116) Lactate Dehydrogenase 323 U/L (81-234) H Troponin I 0.005 ng/mL (0.000-0.056) Pro-B-Type Natriuretic Peptide Pending Total Protein 7.5 G/DL (6.4-8.2) 6.3 G/DL (6.4-8.2) L Albumin 2.8 G/DL (3.4-5.0) L 2.2 G/DL (3.4-5.0) L Globulin 4.7 g/dL 4.1 g/dL Albumin/Globulin Ratio 0.6 (1.0-2.7) L 0.5 (1.0-2.7) L Urine Color Pending Urine Appearance Pending Urine pH Pending Urine Specific [place] Pending Urine Protein Pending Urine Glucose (UA) Pending Urine Ketones Pending Urine Blood Pending Urine Nitrite Pending Urine Bilirubin Pending Urine Urobilinogen Pending Urine Leukocyte Esterase Pending Height (Feet): 5 Weight (Pounds): 82 Medications Current Medications Medications (Trade) Dose Ordered Sig/Martin Route PRN Reason Start Time Stop Time Status Last Admin Dose Admin Azithromycin 500 mg/Dextrose 275 ml @ 275 mls/hr Q24HRS IV 09/23/20 01:00 09/28/20 00:59 Ceftriaxone Sodium 1 gm/ Dextrose 55 ml @ 110 mls/hr Q24HRS IVPB 09/23/20 00:00 09/30/20 00:00 Metronidazole (Flagyl) 500 mg EVERY 8 HOURS ORAL 09/22/20 22:00 09/29/20 21:59 Potassium Chloride/Sodium Chloride 1,000 ml @ 200 mls/hr Q5H IV 09/22/20 07:00 09/23/20 06:59 09/22/20 17:41 Assessment/Plan Assessment/Plan: This is a 80-year-old female with a past medical history of hypertension, hyperlipidemia and dementia presenting with chest pain cough and suspected bilateral pneumonia. #Bilateral pneumonia, CAP? Aspiration? #Rule out COVID #Chest pain, suspect due to above. Agree to rule out dissection, ACS, PE #Leukocytosis secondary to above, now improving #Elevated LDH #elevated d-dimer #hyperlipidemia > EKG reviewed. QTC 425 -Admit to telemetry -Obtain CT angio chest abdomen pelvis -Follow cultures -Check COVID again. Initial negative -Abx per ID -Rocephin (09/22 - ) -Azithromycin (09/22 - ) -Flagyl (09/22 - ) -Appreciate ID consult: Dr. Denny -Appreciate Pulm consult: Dr. Miranda -Consider Cardiology consult -trend troponins -2d echo -IV fluids and BP management per nephro #hypokalemia -Replete PRN -Nephro consulted #dementia #acute metabolic encephalopathy 2/2 above -treat as above - FENPPX DVTPPX: per primary. HSQ pending CT imaging GI PPX: none at this time Fluids: per nephro Diet: renal Lines: PIV PT/OT: pending Code status: Full per policy Dispo: pending resolution of above Reason for Continued Hospitalization: Pneumonia, rule out COVID MIPS (Merit-based Incentive Payment System) Applicable CPT: 69304, 90142 CHECK ALL THAT ARE MET: [] Measure #5 (CHF): All ages. Prescribe GABE/ARB upon discharge for patients with left ventricular systolic dysfunction. If not, the reason is clearly documented in the medical chart [] Measure #8 (CHF): All ages. Prescribe a beta frank upon discharge for patients with left ventricular systolic dysfunction. If not, the reason is clearly documented in the medical chart. [] Measure #47: Advance care plan or surrogate decision maker documented in the medical record. [x] Measure #130 The provider has documented, updated, or reviewed the patients current medication list and has documented it in the patients note. [x] Measure #374 (All): Send report to referring provider. [] Measure #407(Sepsis due to MSSA bacteremia): Age 18+ Patient treated with a beta-lactam antibiotic (Nafcillin, Oxacillin or Cefazolin) as definitive therapy. MEDICAL COMPLEXITYHigh complexity medical decision making (need 2/3 categories)Problem - need 4 points [x]Acute/new problem with new plan for workup (4 points, 1 max) [] Acute/new problem without additional workup (3 points, 1 max) [] Unstable chronic problem actively being managed (2 point each, 2 max) [x] Stable chronic problem actively being managed (1 point each, 2 max) [x] Self-limited/transient process (constipation, muscle ache, etc) (1 point each, 2 max) Data - need 4 points [x] Reviewed labs/imaging studies (1 points, 2 max) [x] Independent review of imaging (EKG, xrays, etc) (2 points, 2 max) [x] Discussed case with consult/other MD/RN (2 points, 2 max) High Risk - qualify if have one of the following: [x] Severe exacerbation of acute problem, acute mental status change, IV narcotics, monitoring drug levels (vancomycin, INR, tacrolimus etc) I spent 73 minutes on this patient's case, and 40 mins was dedicated to counseling and/or care coordination. Discussed with ID, pulsreekanth, nephro, RN Time of note may not reflect time of encounter Marvin Romeo D.O. Sep 22, 2020 20:41
--- NOTE | 2020-09-22 20:50 | NUR ---
NURSE NOTES: Called to Dr. Haley and confirm admission orders including resuming home medication and restraints order-bilateral wrist soft. Order noted and carried out. Will continue to monitor.
[2020-09-22] MEDS ORDERED: MIRTAZAPINE7.5 MG ORAL (21:10)
[2020-09-22] MEDS ORDERED: TRAZODONE HCL50 MG ORAL (21:16)
[2020-09-22] MEDS ORDERED: SEROQUEL50 MG ORAL (21:16)
[2020-09-22] MEDS ORDERED: BENAZEPRIL HCL40 MG ORAL (21:16)
[2020-09-22] MEDS ORDERED: NORVASC10 MG ORAL (21:17)
[2020-09-22] MEDS ORDERED: MEMANTINE HCL E21 MG PO (21:17)
--- NOTE | 2020-09-22 22:11 | Neurology Progress Note ---
Interim History Interim History Interim History 89-year-old female with a past medical history of hypertension, hyperlipidemia and dementia. Pt poor historian. Does not have capacity Over the past week the patient has had decreased appetite increased fatigue and somnolence. Left-sided chest pain that she describes a tearing sensation. In the ER Chest x-ray showed bilateral pneumonia. An attempt was made to perform CT angio to rule out aortic dissection, however patient altered and erratic. Objective Physical Exam Last Vital Signs Date Time Temp Pulse Resp B/P (MAP) Pulse Ox O2 Delivery O2 Flow Rate FiO2 09/22/20 20:00 98.6 100 16 112/86 99 Room Air Laboratory Tests Test 09/22/20 05:55 09/22/20 19:38 White Blood Count 9.3 K/UL (4.8-10.8) Red Blood Count 3.64 M/UL (4.20-5.40) L Hemoglobin 10.5 G/DL (12.0-16.0) L Hematocrit 30.8 % (37.0-47.0) L Mean Corpuscular Volume 85 FL (80-99) Mean Corpuscular Hemoglobin 28.9 PG (27.0-31.0) Mean Corpuscular Hemoglobin Concent 34.2 G/DL (32.0-36.0) Red Cell Distribution Width 13.2 % (11.6-14.8) Platelet Count 230 K/UL (150-450) Mean Platelet Volume 8.6 FL (6.5-10.1) Neutrophils (%) (Auto) 82.8 % (45.0-75.0) H Lymphocytes (%) (Auto) 11.3 % (20.0-45.0) L Monocytes (%) (Auto) 4.1 % (1.0-10.0) Eosinophils (%) (Auto) 1.0 % (0.0-3.0) Basophils (%) (Auto) 0.9 % (0.0-2.0) Sodium Level 143 MMOL/L (136-145) Potassium Level 2.7 MMOL/L (3.5-5.1) *L Chloride Level 110 MMOL/L (98-107) H Carbon Dioxide Level 25 MMOL/L (21-32) Anion Gap 8 mmol/L (5-15) Blood Urea Nitrogen 12 mg/dL (7-18) Creatinine 0.6 MG/DL (0.55-1.30) Estimat Glomerular Filtration Rate > 60 mL/min (>60) Glucose Level 72 MG/DL (74-106) L Calcium Level 7.0 MG/DL (8.5-10.1) L Total Bilirubin 0.3 MG/DL (0.2-1.0) Aspartate Amino Transf (AST/SGOT) 14 U/L (15-37) L Alanine Aminotransferase (ALT/SGPT) 11 U/L (12-78) L Alkaline Phosphatase 54 U/L (46-116) Total Protein 6.3 G/DL (6.4-8.2) L Albumin 2.2 G/DL (3.4-5.0) L Globulin 4.1 g/dL Albumin/Globulin Ratio 0.5 (1.0-2.7) L Urine Color Pale yellow Urine Appearance Clear Urine pH 7 (4.5-8.0) Urine Specific [place] 1.010 (1.005-1.035) Urine Protein 1+ (NEGATIVE) H Urine Glucose (UA) Negative (NEGATIVE) Urine Ketones Negative (NEGATIVE) Urine Blood 1+ (NEGATIVE) H Urine Nitrite Negative (NEGATIVE) Urine Bilirubin Negative (NEGATIVE) Urine Urobilinogen Normal MG/DL (0.0-1.0) Urine Leukocyte Esterase Negative (NEGATIVE) Urine RBC 5-10 /HPF (0 - 2) H Urine WBC 0-2 /HPF (0 - 2) Urine Squamous Epithelial Cells Many /LPF (NONE/OCC) H Urine Amorphous Sediment Moderate /LPF (NONE) H Urine Bacteria Few /HPF (NONE) Urine Starch Impression/Recommendations Problems: (1) Chest pain (2) Pneumonia (3) Failure to thrive (4) Malnutrition (5) Failure to thrive in adult Diagnostic Impression acute encephalopathy, likely metabolic given sepsis and pneumonia covid ro dementia pt does not have capacity medical support delirium precautions Fox Payne MD Sep 22, 2020 22:11
[2020-09-22] MEDS: TraZODone 50mg tab ORAL SCH (22:19)
[2020-09-22] MEDS: metroNIDAZOLE 500mg tab ORAL SCH (22:20)
[2020-09-22] MEDS: Heparin 5000 units/ml inj SUBQ SCH (22:23)
[2020-09-22] MEDS: LORazepam Inj 2mg/ml 1ml IV PRN (23:03)
--- NOTE | 2020-09-22 23:05 | NUR ---
NURSE NOTES: Despite routine po medication still noted agitation-trying to get out of bed. Given prn Ativan 0.5mg IVS as ordered. Berrios catheter is inserted state yellow urine is patent. Will continue to monitor closely.
--- NOTE | 2020-09-22 23:20 | NUR ---
NURSE NOTES: Family member called to the unit and update pt's conditions. Will call back tomorrow for further information. Made aware of getting CTA on chest and abdomen. Will continue to follow up.
[2020-09-22] MEDS: cefTRIAXone 1 GM in D5W 55 ML IVPB SCH (23:45)
[2020-09-23] VITALS: BP 123/69
[2020-09-23] MEDS: Azithromycin 500 MG in D5W 275 ML IV SCH (02:00)
[2020-09-23] MEDS: NS w/KCl 40mEq 1,000 ML IV SCH (03:00)
[2020-09-23 04:00] VITALS: BP 130/85
[2020-09-23] MEDS: LORazepam Inj 2mg/ml 1ml IV PRN ×2 (04:34→22:05)
[2020-09-23] MEDS: metroNIDAZOLE 500mg tab ORAL SCH ×3 (06:44→21:24)
[2020-09-23 07:14] LABS: ANION GAP 7 mmol/L (5-15); BLOOD UREA NITROGEN 8 mg/dL (7-18); CALCIUM 8.1 MG/DL (8.5-10.1); CARBON DIOXIDE 27 MMOL/L (21-32); CHLORIDE 105 MMOL/L (98-107); CREATININE 0.6 MG/DL (0.55-1.30); SODIUM 139 MMOL/L (136-145)
[2020-09-23 07:17] LABS: PHOSPHORUS 2.3 MG/DL (2.5-4.9)
[2020-09-23 07:31] LABS: HEMATOCRIT 32.6 % (37.0-47.0); HEMOGLOBIN 10.5 G/DL (12.0-16.0); MEAN CORPUSCULAR VOLUME 89 FL (80-99); PLATELET COUNT 305 K/UL (150-450); RED BLOOD COUNT 3.66 M/UL (4.20-5.40); RED CELL DISTRIBUTION WIDTH 13.5 % (11.6-14.8); WHITE BLOOD COUNT 10.1 K/UL (4.8-10.8)
--- NOTE | 2020-09-23 07:40 | NUR ---
NURSE HAND-OFF REPORT: Important Events on Shift: new admission/ agitation- Ativan given x2 and on bilateral soft restraints/ NPO for possible CTA Patient Status: [agitation and confusion] Diet: [npo-->regular] Pending Orders: [] Pending Results/Labs:[] Pending MD notification:[] Latest Vital Signs: Temperature 97.3 , Pulse 97 , B/P 130 /85 , Respiratory Rate 20 , O2 SAT 95 , Room Air, O2 Flow Rate . Vital Sign Comment: [] EKG Rhythm: Sinus Tachycardia Rhythm change?: N MD Notified?: - MD Response: Latest Collado Fall Score: 60 Fall Risk: High Risk Safety Measures: Call light Within Reach, Bed Alarm Zone 1, Side Rails Side Rails x3, Bed position Low and Locked. Fall Precautions: Yellow Socks Yellow Gown Patient Fall Education Report given to VIRGILIO Aj.
--- NOTE | 2020-09-23 07:45 | NUR ---
NURSE NOTES: Received patient report from VIRGILIO Wallace. Patient is AO x1, latvian speaking only and slightly agitated. No pain noted at this time. Patient has R 18G on hand running NS with KCL 40 @ 200ml/hr, patent and intact. Bed in lowest position, locked and side rails x2 up. Call light within reach at all times.
[2020-09-23 08:00] VITALS: BP 122/76
--- NOTE | 2020-09-23 08:36 | NUR ---
CASE MANAGEMENT:REVIEW FROM HOME CC: GENERALIZED WEAKNESS AND CHEST PAIN SI: CHEST PAIN. BILATERAL PNEUMONIA 98.0 98 18 111/68 90% ON RA WBC+14.2 K-3.2 IS: IV AZITHROMYCIN IV ROCEPHIN IV BENADRYL IV HALDOL X2 IV ATIVAN X2 CTA CHEST/ABD/PELVIS CXR : TO TELEMETRY DCP: FROM HOME
--- NOTE | 2020-09-23 08:41 | NUR ---
RD ASSESSMENT & RECOMMENDATIONS SEE CARE ACTIVITY FOR COMPLETE ASSESSMENT DAILY ESTIMATED NEEDS: Needs based on Cardiac, pulmonary 37.3kg 30-35 kcals/kg 1910-5103 total kcals 1-1.5 g protein/kg 37-56 g total protein 25-35ml/kcal mL/kg 933-1306 total fluid mLs NUTRITION DIAGNOSIS: Altered nutrition related lab values r/t clinical status as evidenced by low K(2.7->wnl), low phos(2.3), low mag(1.7). CURRENT DIET: Regular ms finely chopped PO DIET RECOMMENDATIONS--->>> Maintain REGULAR DIET/ Texture per AUTO BODY REPAIRMAN ADDITIONAL RECOMMENDATIONS: 1) Add Ensure Enlive BID 2) Obtain a calibrated bed scale wts 3) Replete lytes-> low phos, mg 4) AUTO BODY REPAIRMAN eval for appropriate texture
[2020-09-23] MEDS: Benazepril 10mg tab ORAL SCH (09:00)
[2020-09-23] MEDS: Heparin 5000 units/ml inj SUBQ SCH ×2 (09:00→21:00)
[2020-09-23] MEDS: Memantine 10mg tab ORAL SCH ×2 (09:30→21:24)
--- NOTE | 2020-09-23 09:52 | Nephrology Progress Note ---
Assessment/Plan Plan #Hypokalemia #Sepsis #Pneumonia #Hypoxemic respiratory failure #AMS #history of dementia - admit to [facility] - [facility] - IVF - antibiotics - ID eval - pulm eval - neuro eval - monitor renal function time spent 65 min Subjective ROS Limited/Unobtainable: Yes Subjective potassium normal today Objective Objective Last 24 Hour Vital Signs Date Time Temp Pulse Resp B/P (MAP) Pulse Ox O2 Delivery O2 Flow Rate FiO2 09/23/20 09:30 95 122/76 09/23/20 09:00 122/76 09/23/20 08:00 98.0 95 19 122/76 (91) 96 09/23/20 04:00 97.3 97 20 130/85 (100) 95 09/23/20 00:00 102 09/23/20 00:00 97.2 104 20 123/69 (87) 94 09/22/20 22:23 115 09/22/20 21:00 Room Air 09/22/20 20:45 Room Air 09/22/20 20:00 98.6 100 16 112/86 99 Room Air 09/22/20 20:00 96.6 96 20 131/76 (94) 96 09/22/20 12:00 97.8 88 15 118/76 99 Room Air Intake and Output 09/22/20 09/23/20 19:00 07:00 Output Total 2300 ml Balance -2300 ml Output Urine Total 2300 ml Laboratory Tests 09/22/20 19:38: Urine Color Pale yellow, Urine Appearance Clear, Urine pH 7, Urine Specific [place] 1.010, Urine Protein 1+H, Urine Glucose (UA) Negative, Urine Ketones Negative, Urine Blood 1+H, Urine Nitrite Negative, Urine Bilirubin Negative, Urine Urobilinogen Normal, Urine Leukocyte Esterase Negative, Urine RBC 5-10H, Urine WBC 0-2, Urine Squamous Epithelial Cells ManyH, Urine Amorphous Sediment ModerateH, Urine Bacteria Few, Urine Starch 09/23/20 05:45: White Blood Count 10.1, Red Blood Count 3.66L, Hemoglobin 10.5L, Hematocrit 32.6L, Mean Corpuscular Volume 89, Mean Corpuscular Hemoglobin 28.8, Mean Corpuscular Hemoglobin Concent 32.4, Red Cell Distribution Width 13.5, Platelet Count 305, Mean Platelet Volume 8.6, Neutrophils (%) (Auto) , Lymphocytes (%) (Auto) , Monocytes (%) (Auto) , Eosinophils (%) (Auto) , Basophils (%) (Auto) , Neutrophils % (Manual) [Pending], Lymphocytes % (Manual) [Pending], Platelet Estimate [Pending], Platelet Morphology [Pending], Sodium Level 139, Potassium Level 4.0, Chloride Level 105, Carbon Dioxide Level 27, Anion Gap 7, Blood Urea Nitrogen 8, Creatinine 0.6, Estimat Glomerular Filtration Rate > 60, Glucose Level 78, Calcium Level 8.1L, Phosphorus Level 2.3L, Magnesium Level 1.7L Height (Feet): 5 Height (Inches): 0.00 Weight (Pounds): 82 General Appearance: no apparent distress EENT: PERRL/EOMI, normal ENT inspection Neck: non-tender Cardiovascular: normal peripheral pulses, regular rhythm Respiratory/Chest: chest wall non-tender, lungs clear Abdomen: non tender, soft, no organomegaly Neurologic: disoriented Roseanne Haley M.D. Sep 23, 2020 09:52
[2020-09-23 12:00] VITALS: BP 140/80
[2020-09-23] MEDS ORDERED: Potassium Phosphate 15mm/250ml 250 ML IVPB ONE (12:00)
[2020-09-23 16:00] VITALS: BP 124/68
--- NOTE | 2020-09-23 17:09 | Consultation ---
History of Present Illness General Date patient seen: Sep 23, 2020 Reason for Hospitalization: Chest Pain Present Illness HPI 80F with multiple medical comorbidities presented with decreased po intake, ftt, chest pain currently under medical care noted to have bmi 16, alb 2's. no n/ v/f/c. abd and chest discomfort. limited history given baseline mental status. surgery called to evaluate and assist with care. patient seen, chart reviewed, patient examined. Allergies: Coded Allergies: No Known Allergies (Unverified , 09/21/20) COVID-19 Screening Contact w/high risk pt: No Recent Travel to affected area: No Experienced COVID-19 symptoms?: No Medication History Scheduled Amlodipine Besylate (Norvasc), 10 MG ORAL DAILY, (Reported) Benazepril Hcl* (Benazepril Hcl*), 40 MG ORAL DAILY, (Reported) Memantine HCl (Memantine HCl ER), 21 MG PO QD, (Reported) Mirtazapine* (Mirtazapine*), 7.5 MG ORAL BEDTIME, (Reported) Quetiapine Fumarate (Seroquel), 50 MG ORAL QHS, (Reported) Scheduled PRN Trazodone Hcl* (Desyrel*), 50 MG ORAL BEDTIME PRN for qhs, (Reported) Patient History Limited by: age, medical condition History Provided By: Patient, Medical Record, PMD Healthcare decision maker Resuscitation status Advanced Directive on File Past Medical/Surgical History Past Medical/Surgical History: (1) Failure to thrive (2) Malnutrition (3) Chest pain (4) Pneumonia Review of Systems Review of Symptoms General ROS: no weight loss or fever Psychological ROS: no depression or mood changes, no memory loss Ophthalmic ROS: no visual changes or eye irritation ENT ROS: no nasal congestion, hearing loss, dizziness Allergy and Immunology ROS: no allergic symptoms or urticaria Hematological and Lymphatic ROS: no swollen glands, unusual bleeding or bruising Endocrine ROS: no polyuria, polydipsia, weight changes, temperature intolerance Respiratory ROS: no cough, shortness of breath, or wheezing Cardiovascular ROS: no chest pain or dyspnea on exertion Gastrointestinal ROS: denies abdominal pain, bright red blood in stool. Musculoskeletal ROS: no myalgias or arthralgias Neurological ROS: no TIA or stroke symptoms Dermatological ROS: no new or changing skin lesions, rashes or pruritis Physical Exam Physical Exam General appearance: alert, cooperative, no distress, appears stated age Head: Normocephalic, without obvious abnormality, atraumatic Eyes: conjunctivae/corneas clear. PERRL, EOM's intact. Fundi benign Throat: Lips, mucosa, and tongue normal. Teeth and gums normal Neck: supple, symmetrical, trachea midline, no adenopathy, thyroid: not enlarged, symmetric, no tenderness/mass/nodules, no carotid bruit and no JVD Lungs: clear to auscultation bilaterally Heart: regular rate and rhythm, S1, S2 normal, no murmur, click, rub or gallop Abdomen: soft, non-tender. Bowel sounds normal. No masses, no organomegaly Extremities: extremities normal, atraumatic, no cyanosis or edema Pulses: 2+ and symmetric Skin: Skin color, texture, turgor normal. No rashes or lesions Neurologic: Grossly normal Last 24 Hour Vital Signs Date Time Temp Pulse Resp B/P (MAP) Pulse Ox O2 Delivery O2 Flow Rate FiO2 09/23/20 12:00 97.3 82 20 140/80 (100) 96 09/23/20 12:00 67 09/23/20 09:30 95 122/76 09/23/20 09:00 Room Air 09/23/20 09:00 122/76 09/23/20 08:00 98.0 95 19 122/76 (91) 96 09/23/20 08:00 80 09/23/20 04:00 97.3 97 20 130/85 (100) 95 09/23/20 00:00 102 09/23/20 00:00 97.2 104 20 123/69 (87) 94 09/22/20 22:23 115 09/22/20 21:00 Room Air 09/22/20 20:45 Room Air 09/22/20 20:00 98.6 100 16 112/86 99 Room Air 09/22/20 20:00 96.6 96 20 131/76 (94) 96 Intake and Output 09/22/20 09/23/20 19:00 07:00 Output Total 2300 ml Balance -2300 ml Output Urine Total 2300 ml Laboratory Tests Test 09/22/20 19:38 09/23/20 05:45 Urine Color Pale yellow Urine Appearance Clear Urine pH 7 (4.5-8.0) Urine Specific [place] 1.010 (1.005-1.035) Urine Protein 1+ (NEGATIVE) H Urine Glucose (UA) Negative (NEGATIVE) Urine Ketones Negative (NEGATIVE) Urine Blood 1+ (NEGATIVE) H Urine Nitrite Negative (NEGATIVE) Urine Bilirubin Negative (NEGATIVE) Urine Urobilinogen Normal MG/DL (0.0-1.0) Urine Leukocyte Esterase Negative (NEGATIVE) Urine RBC 5-10 /HPF (0 - 2) H Urine WBC 0-2 /HPF (0 - 2) Urine Squamous Epithelial Cells Many /LPF (NONE/OCC) H Urine Amorphous Sediment Moderate /LPF (NONE) H Urine Bacteria Few /HPF (NONE) Urine Starch White Blood Count 10.1 K/UL (4.8-10.8) Red Blood Count 3.66 M/UL (4.20-5.40) L Hemoglobin 10.5 G/DL (12.0-16.0) L Hematocrit 32.6 % (37.0-47.0) L Mean Corpuscular Volume 89 FL (80-99) Mean Corpuscular Hemoglobin 28.8 PG (27.0-31.0) Mean Corpuscular Hemoglobin Concent 32.4 G/DL (32.0-36.0) Red Cell Distribution Width 13.5 % (11.6-14.8) Platelet Count 305 K/UL (150-450) Mean Platelet Volume 8.6 FL (6.5-10.1) Neutrophils (%) (Auto) % (45.0-75.0) Lymphocytes (%) (Auto) % (20.0-45.0) Monocytes (%) (Auto) % (1.0-10.0) Eosinophils (%) (Auto) % (0.0-3.0) Basophils (%) (Auto) % (0.0-2.0) Differential Total Cells Counted 100 Neutrophils % (Manual) 84 % (45-75) H Lymphocytes % (Manual) 7 % (20-45) L Monocytes % (Manual) 9 % (1-10) Eosinophils % (Manual) 0 % (0-3) Basophils % (Manual) 0 % (0-2) Band Neutrophils 0 % (0-8) Platelet Estimate Adequate Platelet Morphology Normal Hypochromasia 1+ Sodium Level 139 MMOL/L (136-145) Potassium Level 4.0 MMOL/L (3.5-5.1) Chloride Level 105 MMOL/L (98-107) Carbon Dioxide Level 27 MMOL/L (21-32) Anion Gap 7 mmol/L (5-15) Blood Urea Nitrogen 8 mg/dL (7-18) Creatinine 0.6 MG/DL (0.55-1.30) Estimat Glomerular Filtration Rate > 60 mL/min (>60) Glucose Level 78 MG/DL (74-106) Calcium Level 8.1 MG/DL (8.5-10.1) L Phosphorus Level 2.3 MG/DL (2.5-4.9) L Magnesium Level 1.7 MG/DL (1.8-2.4) L Height (Feet): 5 Height (Inches): 0.00 Weight (Pounds): 82 Medications Current Medications Medications (Trade) Dose Ordered Sig/Martin Route PRN Reason Start Time Stop Time Status Last Admin Dose Admin Amlodipine Besylate (Norvasc) 10 mg DAILY ORAL 09/23/20 09:00 10/23/20 08:59 09/23/20 09:30 Azithromycin 500 mg/Dextrose 275 ml @ 275 mls/hr Q24HRS IV 09/23/20 01:00 09/28/20 00:59 09/23/20 02:00 Benazepril HCl (Lotensin) 40 mg DAILY ORAL 09/23/20 09:00 10/23/20 08:59 09/23/20 09:00 Ceftriaxone Sodium 1 gm/ Dextrose 55 ml @ 110 mls/hr Q24HRS IVPB 09/23/20 00:00 09/30/20 00:00 09/22/20 23:45 Heparin Sodium (Porcine) (Heparin 5000 units/ml) 5,000 units EVERY 12 HOURS SUBQ 09/22/20 21:30 11/06/20 21:29 09/23/20 09:00 Lorazepam (Ativan 2mg/ml 1ml) 0.5 mg Q6H PRN IV Agitation 09/22/20 21:15 09/29/20 21:14 09/23/20 04:34 Memantine (Namenda) 10 mg Q12HR ORAL 09/23/20 09:00 10/23/20 08:59 09/23/20 09:30 Metronidazole (Flagyl) 500 mg EVERY 8 HOURS ORAL 09/22/20 22:00 12/27/20 21:59 09/23/20 13:45 Mirtazapine (Remeron) 7.5 mg BEDTIME ORAL 09/23/20 21:00 12/22/20 20:59 Quetiapine Fumarate (SEROqueL) 50 mg QHS ORAL 09/22/20 21:30 11/06/20 21:29 09/22/20 22:19 Trazodone HCl (Desyrel) 50 mg BEDTIME ORAL 09/22/20 21:30 10/22/20 21:29 09/22/20 22:19 Assessment/Plan Problem List: (1) Failure to thrive SNOMED: 57901779 (2) Malnutrition ICD Codes: E46 - Unspecified protein-calorie malnutrition SNOMED: 75044744 (3) Chest pain Assessment & Plan: unable to do CTA r/o dissection unlikely given clinical status and exam plain film noted cont bp will monitor ICD Codes: R07.9 - Chest pain, unspecified SNOMED: 07476274 (4) Pneumonia ICD Codes: J18.9 - Pneumonia, unspecified organism SNOMED: 368393401 (5) Failure to thrive in adult Assessment & Plan: bmi 16 alb low high risk for malnutrition fairly bedbound overall needs nutritional optimization surveillance technician eval DAILY ESTIMATED NEEDS: Needs based on Cardiac, pulmonary 37.3kg 30-35 kcals/kg 3589-8658 total kcals 1-1.5 g protein/kg 37-56 g total protein 25-35ml/kcal mL/kg 933-1306 total fluid mLs NUTRITION DIAGNOSIS: Altered nutrition related lab values r/t clinical status as evidenced by low K(2.7->wnl), low phos(2.3), low mag(1.7). CURRENT DIET: Regular ms finely chopped PO DIET RECOMMENDATIONS--->>> Maintain REGULAR DIET/ Texture per PERSONAL BANKING ASSISTANT ADDITIONAL RECOMMENDATIONS: 1) Add Ensure Enlive BID 2) Obtain a calibrated bed scale wts 3) Replete lytes-> low phos, mg 4) PERSONAL BANKING ASSISTANT eval for appropriate texture ICD Codes: R62.7 - Adult failure to thrive SNOMED: 402706124 Shadi Subramanian Sep 23, 2020 17:09
--- NOTE | 2020-09-23 17:20 | Pulmonology Progress Note ---
Subjective ROS Limited/Unobtainable: Yes Interval Events: None new reported Constitutional: Reports: no symptoms HEENT: Repors: no symptoms Respiratory: Reports: no symptoms Cardiovascular: Reports: no symptoms Allergies: Coded Allergies: No Known Allergies (Unverified , 09/21/20) Objective Last 24 Hour Vital Signs Date Time Temp Pulse Resp B/P (MAP) Pulse Ox O2 Delivery O2 Flow Rate FiO2 09/23/20 12:00 97.3 82 20 140/80 (100) 96 09/23/20 12:00 67 09/23/20 09:30 95 122/76 09/23/20 09:00 Room Air 09/23/20 09:00 122/76 09/23/20 08:00 98.0 95 19 122/76 (91) 96 09/23/20 08:00 80 09/23/20 04:00 97.3 97 20 130/85 (100) 95 09/23/20 00:00 102 09/23/20 00:00 97.2 104 20 123/69 (87) 94 09/22/20 22:23 115 09/22/20 21:00 Room Air 09/22/20 20:45 Room Air 09/22/20 20:00 98.6 100 16 112/86 99 Room Air 09/22/20 20:00 96.6 96 20 131/76 (94) 96 Intake and Output 09/22/20 09/23/20 19:00 07:00 Output Total 2300 ml Balance -2300 ml Output Urine Total 2300 ml General Appearance: no acute distress HEENT: normocephalic Respiratory: chest wall non-tender, lungs clear Cardiovascular: normal peripheral pulses, normal rate Abdomen: normal bowel sounds Microbiology Date/Time Source Procedure Growth Status 09/21/20 01:35 Nasopharynx SARS-CoV-2 RdRp Gene Assay - Final Complete Laboratory Tests 09/22/20 19:38: Urine Color Pale yellow, Urine Appearance Clear, Urine pH 7, Urine Specific [place] 1.010, Urine Protein 1+H, Urine Glucose (UA) Negative, Urine Ketones Negative, Urine Blood 1+H, Urine Nitrite Negative, Urine Bilirubin Negative, Urine Urobilinogen Normal, Urine Leukocyte Esterase Negative, Urine RBC 5-10H, Urine WBC 0-2, Urine Squamous Epithelial Cells ManyH, Urine Amorphous Sediment ModerateH, Urine Bacteria Few, Urine Starch 09/23/20 05:45: White Blood Count 10.1, Red Blood Count 3.66L, Hemoglobin 10.5L, Hematocrit 32.6 L, Mean Corpuscular Volume 89, Mean Corpuscular Hemoglobin 28.8, Mean Corpuscular Hemoglobin Concent 32.4, Red Cell Distribution Width 13.5, Platelet Count 305, Mean Platelet Volume 8.6, Neutrophils (%) (Auto) , Lymphocytes (%) (Auto) , Monocytes (%) (Auto) , Eosinophils (%) (Auto) , Basophils (%) (Auto) , Differential Total Cells Counted 100, Neutrophils % (Manual) 84H, Lymphocytes % (Manual) 7L, Monocytes % (Manual) 9, Eosinophils % (Manual) 0, Basophils % (Manual) 0, Band Neutrophils 0, Platelet Estimate Adequate, Platelet Morphology Normal, Hypochromasia 1+, Sodium Level 139, Potassium Level 4.0, Chloride Level 105, Carbon Dioxide Level 27, Anion Gap 7, Blood Urea Nitrogen 8, Creatinine 0.6, Estimat Glomerular Filtration Rate > 60, Glucose Level 78, Calcium Level 8.1L, Phosphorus Level 2.3L, Magnesium Level 1.7L Current Medications Medications (Trade) Dose Ordered Sig/Martin Route PRN Reason Start Time Stop Time Status Last Admin Dose Admin Amlodipine Besylate (Norvasc) 10 mg DAILY ORAL 09/23/20 09:00 10/23/20 08:59 09/23/20 09:30 Azithromycin 500 mg/Dextrose 275 ml @ 275 mls/hr Q24HRS IV 09/23/20 01:00 09/28/20 00:59 09/23/20 02:00 Benazepril HCl (Lotensin) 40 mg DAILY ORAL 09/23/20 09:00 10/23/20 08:59 09/23/20 09:00 Ceftriaxone Sodium 1 gm/ Dextrose 55 ml @ 110 mls/hr Q24HRS IVPB 09/23/20 00:00 09/30/20 00:00 09/22/20 23:45 Heparin Sodium (Porcine) (Heparin 5000 units/ml) 5,000 units EVERY 12 HOURS SUBQ 09/22/20 21:30 11/06/20 21:29 09/23/20 09:00 Lorazepam (Ativan 2mg/ml 1ml) 0.5 mg Q6H PRN IV Agitation 12/20/20 21:15 09/29/20 21:14 09/23/20 04:34 Memantine (Namenda) 10 mg Q12HR ORAL 09/23/20 09:00 10/23/20 08:59 09/23/20 09:30 Metronidazole (Flagyl) 500 mg EVERY 8 HOURS ORAL 09/22/20 22:00 09/29/20 21:59 09/23/20 13:45 Mirtazapine (Remeron) 7.5 mg BEDTIME ORAL 09/23/20 21:00 12/22/20 20:59 Quetiapine Fumarate (SEROqueL) 50 mg QHS ORAL 09/22/20 21:30 11/06/20 21:29 09/22/20 22:19 Trazodone HCl (Desyrel) 50 mg BEDTIME ORAL 09/22/20 21:30 10/22/20 21:29 09/22/20 22:19 Assessment/Plan Assessment/Plan IMPRESSION: #Bilateral pneumonia, likely CAP... Aspiration? #Rule out COVID; initial test negative #Chest pain, suspect due to above. #Leukocytosis secondary to above, now improving #Elevated LDH #elevated d-dimer #hyperlipidemia #dementia #acute metabolic encephalopathy PLAN Await CT angio chest abdomen pelvis Follow cultures Check COVID again. repeat test result pending -Abx per ID -Rocephin (09/22 - ) -Azithromycin (09/22 - ) -Flagyl (09/22 - ) -trend troponins -2d echo -IV fluids and BP management per Casimiro Dumont MD Sep 23, 2020 17:20
--- NOTE | 2020-09-23 19:05 | NUR ---
NURSE HAND-OFF REPORT: Important Events on Shift:NA Patient Status: Stable, Confused Diet: Regular Pending Orders: Ct Angio Pending Results/Labs:NA Pending MD notification:NA Latest Vital Signs: Temperature 97.5 , Pulse 103 , B/P 124 /68 , Respiratory Rate 20 , O2 SAT 96 , Room Air, O2 Flow Rate . Vital Sign Comment: Stable EKG Rhythm: Sinus Tachycardia Rhythm change?: N MD Notified?: - MD Response: Latest [place] Fall Score: 60 Fall Risk: High Risk Safety Measures: Call light Within Reach, Bed Alarm Zone 1, Side Rails Side Rails x3, Bed position Low and Locked. Fall Precautions: Yellow Socks Yellow Gown Patient Fall Education Report given to VIRGILIO Graf.
--- NOTE | 2020-09-23 19:15 | Infectious Diseases Prog Note ---
Assessment/Plan Assessment/Plan A) 1) pneumonia, leukocytosis, ? sepsis, aspiration risk 2) pmh noted 3) allergies - nkda P) 1) ceftriaxone, azithromycin, flagyl 2) f/u on labs, chest x-ray and cultures 3) will f/u 4) thank you Subjective Constitutional: Denies: fever HEENT: Denies: congestion Respiratory: Denies: shortness of breath Cardiovascular: Denies: chest pain Gastrointestinal/Abdominal: Denies: nausea, vomiting Allergies: Coded Allergies: No Known Allergies (Unverified , 09/21/20) Objective Last 24 Hour Vital Signs Date Time Temp Pulse Resp B/P (MAP) Pulse Ox O2 Delivery O2 Flow Rate FiO2 09/23/20 16:00 103 09/23/20 16:00 97.5 62 20 124/68 (86) 96 09/23/20 12:00 97.3 82 20 140/80 (100) 96 09/23/20 12:00 67 09/23/20 09:30 95 122/76 09/23/20 09:00 Room Air 09/23/20 09:00 122/76 09/23/20 08:00 98.0 95 19 122/76 (91) 96 09/23/20 08:00 80 09/23/20 04:00 97.3 97 20 130/85 (100) 95 09/23/20 00:00 102 09/23/20 00:00 97.2 104 20 123/69 (87) 94 09/22/20 22:23 115 09/22/20 21:00 Room Air 09/22/20 20:45 Room Air 09/22/20 20:00 98.6 100 16 112/86 99 Room Air 09/22/20 20:00 96.6 96 20 131/76 (94) 96 Height (Feet): 5 Height (Inches): 0.00 Weight (Pounds): 82 General Appearance: no acute distress HEENT: normocephalic, atraumatic, anicteric, mucous membranes moist Respiratory/Chest: crackles/rales, rhonchi - bilaterally Cardiovascular: normal rate, regular rhythm Microbiology Date/Time Source Procedure Growth Status 09/21/20 01:35 Nasopharynx SARS-CoV-2 RdRp Gene Assay - Final Complete Laboratory Tests Test 09/22/20 19:38 09/23/20 05:45 Urine Color Pale yellow Urine Appearance Clear Urine pH 7 (4.5-8.0) Urine Specific [place] 1.010 (1.005-1.035) Urine Protein 1+ (NEGATIVE) H Urine Glucose (UA) Negative (NEGATIVE) Urine Ketones Negative (NEGATIVE) Urine Blood 1+ (NEGATIVE) H Urine Nitrite Negative (NEGATIVE) Urine Bilirubin Negative (NEGATIVE) Urine Urobilinogen Normal MG/DL (0.0-1.0) Urine Leukocyte Esterase Negative (NEGATIVE) Urine RBC 5-10 /HPF (0 - 2) H Urine WBC 0-2 /HPF (0 - 2) Urine Squamous Epithelial Cells Many /LPF (NONE/OCC) H Urine Amorphous Sediment Moderate /LPF (NONE) H Urine Bacteria Few /HPF (NONE) Urine Starch White Blood Count 10.1 K/UL (4.8-10.8) Red Blood Count 3.66 M/UL (4.20-5.40) L Hemoglobin 10.5 G/DL (12.0-16.0) L Hematocrit 32.6 % (37.0-47.0) L Mean Corpuscular Volume 89 FL (80-99) Mean Corpuscular Hemoglobin 28.8 PG (27.0-31.0) Mean Corpuscular Hemoglobin Concent 32.4 G/DL (32.0-36.0) Red Cell Distribution Width 13.5 % (11.6-14.8) Platelet Count 305 K/UL (150-450) Mean Platelet Volume 8.6 FL (6.5-10.1) Neutrophils (%) (Auto) % (45.0-75.0) Lymphocytes (%) (Auto) % (20.0-45.0) Monocytes (%) (Auto) % (1.0-10.0) Eosinophils (%) (Auto) % (0.0-3.0) Basophils (%) (Auto) % (0.0-2.0) Differential Total Cells Counted 100 Neutrophils % (Manual) 84 % (45-75) H Lymphocytes % (Manual) 7 % (20-45) L Monocytes % (Manual) 9 % (1-10) Eosinophils % (Manual) 0 % (0-3) Basophils % (Manual) 0 % (0-2) Band Neutrophils 0 % (0-8) Platelet Estimate Adequate Platelet Morphology Normal Hypochromasia 1+ Sodium Level 139 MMOL/L (136-145) Potassium Level 4.0 MMOL/L (3.5-5.1) Chloride Level 105 MMOL/L (98-107) Carbon Dioxide Level 27 MMOL/L (21-32) Anion Gap 7 mmol/L (5-15) Blood Urea Nitrogen 8 mg/dL (7-18) Creatinine 0.6 MG/DL (0.55-1.30) Estimat Glomerular Filtration Rate > 60 mL/min (>60) Glucose Level 78 MG/DL (74-106) Calcium Level 8.1 MG/DL (8.5-10.1) L Phosphorus Level 2.3 MG/DL (2.5-4.9) L Magnesium Level 1.7 MG/DL (1.8-2.4) L Current Medications Medications (Trade) Dose Ordered Sig/Martin Route PRN Reason Start Time Stop Time Status Last Admin Dose Admin Amlodipine Besylate (Norvasc) 10 mg DAILY ORAL 09/23/20 09:00 10/23/20 08:59 09/23/20 09:30 Azithromycin 500 mg/Dextrose 275 ml @ 275 mls/hr Q24HRS IV 09/23/20 01:00 09/28/20 00:59 09/23/20 02:00 Benazepril HCl (Lotensin) 40 mg DAILY ORAL 09/23/20 09:00 10/23/20 08:59 09/23/20 09:00 Ceftriaxone Sodium 1 gm/ Dextrose 55 ml @ 110 mls/hr Q24HRS IVPB 09/23/20 00:00 09/30/20 00:00 09/22/20 23:45 Heparin Sodium (Porcine) (Heparin 5000 units/ml) 5,000 units EVERY 12 HOURS SUBQ 09/22/20 21:30 11/06/20 21:29 09/23/20 09:00 Lorazepam (Ativan 2mg/ml 1ml) 0.5 mg Q6H PRN IV Agitation 09/22/20 21:15 09/29/20 21:14 09/23/20 04:34 Memantine (Namenda) 10 mg Q12HR ORAL 09/23/20 09:00 10/23/20 08:59 09/23/20 09:30 Metronidazole (Flagyl) 500 mg EVERY 8 HOURS ORAL 09/22/20 22:00 09/29/20 21:59 09/23/20 13:45 Mirtazapine (Remeron) 7.5 mg BEDTIME ORAL 09/23/20 21:00 12/22/20 20:59 Quetiapine Fumarate (SEROqueL) 50 mg QHS ORAL 09/22/20 21:30 11/06/20 21:29 09/22/20 22:19 Trazodone HCl (Desyrel) 50 mg BEDTIME ORAL 09/22/20 21:30 10/22/20 21:29 09/22/20 22:19 Shan Arnold MD Sep 23, 2020 19:15
--- NOTE | 2020-09-23 19:30 | NUR ---
NURSE NOTES: Got report from Huey POOLE. Pt in stable condition. Patient is A+Ox1 confused and agitated. No s/s of distress or discomfort noted. Pt on room air sating 96%. Pt has L UA 20g slocked patent and intact. Pt has bilateral soft wrist restraints for safety. Pt has 16 fr mills patent and intact. Bed in low and locked position, call light within reach, bedside table within reach. Continue to monitor.
--- NOTE | 2020-09-23 19:31 | General Progress Note ---
Subjective Allergies: Coded Allergies: No Known Allergies (Unverified , 09/21/20) Subjective No acute events overnight per nursing. Family updated. The patient is still altered. Continues to complain of generalized pain. No fevers or chills. Further subjective history unable to be obtained due to ALOC. Updates to history per family. Daughter provided translation who is 21 Allergies: NKDA Medications: BP medication, Dementia medication, Depression medication, pain meds. (Family unclear on exactly what medication. They will reach out to their PCP to find out.) PMHx: dementia, HTN, HLD SurgHx: Hip surgery, nose surgery FamHx: no cancers Social hx: No tobacco, alcohol, drug use Unable to obtain further ROS due to ALOC Objective Last 24 Hour Vital Signs Date Time Temp Pulse Resp B/P (MAP) Pulse Ox O2 Delivery O2 Flow Rate FiO2 09/23/20 16:00 103 09/23/20 16:00 97.5 62 20 124/68 (86) 96 09/23/20 12:00 97.3 82 20 140/80 (100) 96 09/23/20 12:00 67 09/23/20 09:30 95 122/76 09/23/20 09:00 Room Air 09/23/20 09:00 122/76 09/23/20 08:00 98.0 95 19 122/76 (91) 96 09/23/20 08:00 80 09/23/20 04:00 97.3 97 20 130/85 (100) 95 09/23/20 00:00 102 09/23/20 00:00 97.2 104 20 123/69 (87) 94 09/22/20 22:23 115 09/22/20 21:00 Room Air 09/22/20 20:45 Room Air 09/22/20 20:00 98.6 100 16 112/86 99 Room Air 09/22/20 20:00 96.6 96 20 131/76 (94) 96 Intake and Output 09/22/20 09/23/20 19:00 07:00 Output Total 2300 ml Balance -2300 ml Output Urine Total 2300 ml Laboratory Tests 09/22/20 19:38: Urine Color Pale yellow, Urine Appearance Clear, Urine pH 7, Urine Specific [place] 1.010, Urine Protein 1+H, Urine Glucose (UA) Negative, Urine Ketones Negative, Urine Blood 1+H, Urine Nitrite Negative, Urine Bilirubin Negative, Urine Urobilinogen Normal, Urine Leukocyte Esterase Negative, Urine RBC 5-10H, Urine WBC 0-2, Urine Squamous Epithelial Cells ManyH, Urine Amorphous Sediment ModerateH, Urine Bacteria Few, Urine Starch 09/23/20 05:45: White Blood Count 10.1, Red Blood Count 3.66L, Hemoglobin 10.5L, Hematocrit 32.6L, Mean Corpuscular Volume 89, Mean Corpuscular Hemoglobin 28.8, Mean Corpuscular Hemoglobin Concent 32.4, Red Cell Distribution Width 13.5, Platelet Count 305, Mean Platelet Volume 8.6, Neutrophils (%) (Auto) , Lymphocytes (%) (Auto) , Monocytes (%) (Auto) , Eosinophils (%) (Auto) , Basophils (%) (Auto) , Differential Total Cells Counted 100, Neutrophils % (Manual) 84H, Lymphocytes % (Manual) 7L, Monocytes % (Manual) 9, Eosinophils % (Manual) 0, Basophils % (Manual) 0, Band Neutrophils 0, Platelet Estimate Adequate, Platelet Morphology Normal, Hypochromasia 1+, Sodium Level 139, Potassium Level 4.0, Chloride Level 105, Carbon Dioxide Level 27, Anion Gap 7, Blood Urea Nitrogen 8, Creatinine 0.6, Estimat Glomerular Filtration Rate > 60, Glucose Level 78, Calcium Level 8.1L, Phosphorus Level 2.3L, Magnesium Level 1.7L Height (Feet): 5 Height (Inches): 0.00 Weight (Pounds): 82 Objective General: WDWN female in NAD, altered, A&O x 1 HEENT: Normocephalic cephalic atraumatic, pupils equal round reactive to light and accommodation, nares patent and no symmetrical, no tonsillar exudates, mucous membranes moist + poor dentition CV: Regular rate regular rhythm, no murmurs, rubs, or gallops Pulm: Lungs clear to auscultation bilaterally. No wheezes, rhonchi, or rales GI: Soft, nontender, nondistended, bowel sounds present Neuro: CN 2-12 intact bilaterally, no focal signs. Ext: No lower extremity edema bilaterally Skin: no rashes lesions or ulcers Msk: Joints symmetrical in upper extremity and lower extremity bilaterally, no joint swelling. Lymph: No lymphadenopathy in upper extremity and lower extremity Assessment/Plan Assessment/Plan: This is a 80-year-old female with a past medical history of hypertension, hyperlipidemia and dementia presenting with chest pain cough and suspected bilateral pneumonia. #Bilateral pneumonia, CAP? Aspiration? #Rule out COVID #Chest pain, suspect due to above. Agree to rule out dissection, ACS, PE #Leukocytosis secondary to above, now improving #Elevated LDH #elevated d-dimer #hyperlipidemia > EKG reviewed. QTC 425 -Admit to telemetry -Obtain CT angio chest abdomen pelvis: still pending, patient agitated and unable to get -Follow cultures -Check COVID again. Initial negative -Abx per ID -Rocephin (09/22 - ) -Azithromycin (09/22 - ) -Flagyl (09/22 - ) -Appreciate ID consult: Dr. Denny -Appreciate Pulm consult: Dr. Miranda -Consider Cardiology consult -trend troponins -2d echo -IV fluids and BP management per nephro #hypokalemia -Replete PRN -Nephro consulted #dementia #acute metabolic encephalopathy 2/2 above -treat as above FENPPX DVTPPX: per primary. HSQ pending CT imaging GI PPX: none at this time Fluids: per nephro Diet: renal Lines: PIV PT/OT: pending Code status: Full per policy Dispo: pending resolution of above Reason for Continued Hospitalization: Pneumonia, rule out COVID MIPS ([employer]it-based Incentive Payment System) Applicable CPT: 76356, 06536 CHECK ALL THAT ARE MET: [] Measure #5 (CHF): All ages. Prescribe GABE/ARB upon discharge for patients with left ventricular systolic dysfunction. If not, the reason is clearly documented in the medical chart [] Measure #8 (CHF): All ages. Prescribe a beta frank upon discharge for patients with left ventricular systolic dysfunction. If not, the reason is clearly documented in the medical chart. [] Measure #47: Advance care plan or surrogate decision maker documented in the medical record. [x] Measure #130 The provider has documented, updated, or reviewed the patients current medication list and has documented it in the patients note. [x] Measure #374 (All): Send report to referring provider. [] Measure #407(Sepsis due to MSSA bacteremia): Age 18+ Patient treated with a beta-lactam antibiotic (Nafcillin, Oxacillin or Cefazolin) as definitive therapy. MEDICAL COMPLEXITYHigh complexity medical decision making (need 2/3 categories)Problem - need 4 points [x]Acute/new problem with new plan for workup (4 points, 1 max) [] Acute/new problem without additional workup (3 points, 1 max) [] Unstable chronic problem actively being managed (2 point each, 2 max) [x] Stable chronic problem actively being managed (1 point each, 2 max) [x] Self-limited/transient process (constipation, muscle ache, etc) (1 point each, 2 max) Data - need 4 points [x] Reviewed labs/imaging studies (1 points, 2 max) [x] Independent review of imaging (EKG, xrays, etc) (2 points, 2 max) [x] Discussed case with consult/other MD/RN (2 points, 2 max) High Risk - qualify if have one of the following: [x] Severe exacerbation of acute problem, acute mental status change, IV narcotics, monitoring drug levels (vancomycin, INR, tacrolimus etc) I spent 38 minutes on this patient's case, and 22 mins was dedicated to counseling and/or care coordination. Discussed with abdifatah PADILLA, nephro, RN. I spent an additional 32 minutes of further time on counseling and care coordination in addition to usual care as detailed above. D/w family at length regarding plan of care, further background history. Multiple questions. All ques tions answered. Time of note may not reflect time of encounter Marvin Romeo D.O. Sep 23, 2020 19:31
--- NOTE | 2020-09-23 19:49 | Neurology Progress Note ---
Interim History Interim History ROS Limited/Unobtainable: Yes Interim History still confused agitated Objective Physical Exam Last Vital Signs Date Time Temp Pulse Resp B/P (MAP) Pulse Ox O2 Delivery O2 Flow Rate FiO2 09/23/20 16:00 103 09/23/20 16:00 97.5 20 124/68 (86) 96 09/23/20 09:00 Room Air Laboratory Tests Test 09/23/20 05:45 White Blood Count 10.1 K/UL (4.8-10.8) Red Blood Count 3.66 M/UL (4.20-5.40) L Hemoglobin 10.5 G/DL (12.0-16.0) L Hematocrit 32.6 % (37.0-47.0) L Mean Corpuscular Volume 89 FL (80-99) Mean Corpuscular Hemoglobin 28.8 PG (27.0-31.0) Mean Corpuscular Hemoglobin Concent 32.4 G/DL (32.0-36.0) Red Cell Distribution Width 13.5 % (11.6-14.8) Platelet Count 305 K/UL (150-450) Mean Platelet Volume 8.6 FL (6.5-10.1) Neutrophils (%) (Auto) % (45.0-75.0) Lymphocytes (%) (Auto) % (20.0-45.0) Monocytes (%) (Auto) % (1.0-10.0) Eosinophils (%) (Auto) % (0.0-3.0) Basophils (%) (Auto) % (0.0-2.0) Differential Total Cells Counted 100 Neutrophils % (Manual) 84 % (45-75) H Lymphocytes % (Manual) 7 % (20-45) L Monocytes % (Manual) 9 % (1-10) Eosinophils % (Manual) 0 % (0-3) Basophils % (Manual) 0 % (0-2) Band Neutrophils 0 % (0-8) Platelet Estimate Adequate Platelet Morphology Normal Hypochromasia 1+ Sodium Level 139 MMOL/L (136-145) Potassium Level 4.0 MMOL/L (3.5-5.1) Chloride Level 105 MMOL/L (98-107) Carbon Dioxide Level 27 MMOL/L (21-32) Anion Gap 7 mmol/L (5-15) Blood Urea Nitrogen 8 mg/dL (7-18) Creatinine 0.6 MG/DL (0.55-1.30) Estimat Glomerular Filtration Rate > 60 mL/min (>60) Glucose Level 78 MG/DL (74-106) Calcium Level 8.1 MG/DL (8.5-10.1) L Phosphorus Level 2.3 MG/DL (2.5-4.9) L Magnesium Level 1.7 MG/DL (1.8-2.4) L Impression/Recommendations Problems: (1) Chest pain (2) Pneumonia (3) Failure to thrive (4) Malnutrition (5) Failure to thrive in adult Diagnostic Impression acute encephalopathy, likely metabolic given sepsis and pneumonia covid ro dementia pt does not have capacity medical support delirium precautions Fox Payne MD Sep 23, 2020 19:49
[2020-09-23 20:00] VITALS: BP 130/83
[2020-09-23] MEDS: TraZODone 50mg tab ORAL SCH (21:24)
--- NOTE | 2020-09-23 21:30 | Consultation ---
DATE OF CONSULTATION: 09/23/2020 INFECTIOUS DISEASES CONSULTATION CONSULTING PHYSICIAN: Shan Arnold M.D. ATTENDING PHYSICIAN: Roseanne Haley M.D. REFERRING PHYSICIAN: Roseanne Haley M.D. REASON FOR CONSULTATION: Community-acquired pneumonia, rule out aspiration pneumonia, sepsis, elevated white count. CHIEF COMPLAINT: The patient's chief complaint coming into the hospital is chest pain. HISTORY OF PRESENT ILLNESS: This is an 80-year-old female, who I believe comes in from home. She presents to [facility] with the following. She had decrease in appetite and fatigue and somnolence. It looks like she had abdominal pain and back pain and per the records could have chest pain. The patient on chest x-ray has bilateral pneumonia. She had an elevated white count and possibility of sepsis. Infectious Disease consultation was requested. She saw the patient yesterday in the emergency room and placed her on Rocephin, azithromycin, and Flagyl. She also has history of dementia and could be at risk for aspiration pneumonia also. Her white count on admission was 14.2. She did have tachycardia and SIRS criteria. MAR was noted. Orders were noted. Notes were reviewed. The patient really cannot add to this history. She is mostly nonverbal. REVIEW OF SYSTEMS: The patient has generalized fatigue, weakness, mostly nonverbal. She has no fevers noted. HEAD AND NECK: No obvious head pain, neck pain. CARDIAC: Per the records, she had chest pain. GASTROINTESTINAL: Per the records, she had decrease in appetite and abdominal pain and back pain. No diarrhea or nausea or vomiting mentioned also. GENITOURINARY: I think she has a Berrios. PULMONARY: She has maybe mild shortness of breath and cough, but no secretions or hemoptysis. SKIN: No rash. EXTREMITIES: No extremity pain as mentioned. NEUROLOGIC: No seizures. Generalized fatigue, weakness. PAST MEDICAL HISTORY: The patient has a past medical history of following. The patient has a past medical history of hypertension, hyperlipidemia, and dementia. ALLERGIES: She has no known drug allergies. No antibiotic allergies. SOCIAL HISTORY: Negative for smoking, alcohol, or drug abuse. FAMILY HISTORY: Noncontributory. There is no history of tuberculosis or cancer. MEDICATIONS: Upon reviewing the MAR, she is on the following medications. She is on mirtazapine, memantine, benazepril, amlodipine, azithromycin, Rocephin, Flagyl, heparin, quetiapine, trazodone, lorazepam. Outside medications were noted and reconciliated. PHYSICAL EXAMINATION: VITAL SIGNS: Temperature 97.5, pulse rate 62, pulse rate has been as high as 115, respiratory rate 20, blood pressure 124/68, saturation 96% on room air. GENERAL: Weak, responsive. HEAD AND NECK: Oral exam, no thrush. Eye exam, no icterus. Normocephalic. Neck is supple. No JVD. CARDIAC: Regular. No gallop or murmur. No friction rub. ABDOMEN: Soft. Positive bowel sounds. Nontender. LUNGS: Bilateral rhonchi and rales and crackles. SKIN: No rash. MUSCULOSKELETAL: No effusions. Legs are without cellulitis. PERIPHERAL VASCULAR: No cyanosis or gangrene. GENITOURINARY: I think she has a Berrios. Urine is slightly cloudy. LINES: Lines sites without phlebitis. NEUROLOGIC: General weakness, lethargic, responsive. No joint pain. LABORATORY AND DIAGNOSTIC DATA: Laboratory data is as follows, white count today 10.1, hemoglobin 10.5. White count on admission 14.2, hemoglobin 10.5. Creatinine 0.6. LFTs noted. Potassium 2.7. UA had 0 to 2 white cells. COVID nasopharyngeal testing is negative. Chest x-ray shows bilateral pneumonia. This is noted and reviewed. ASSESSMENT AND PLAN: 1. The patient has bilateral pneumonia, which suggests the patient could have community-acquired pneumonia. Because of history of dementia, she could also have aspiration pneumonia. The patient had elevated white count, possible sepsis. At this time, we will continue Rocephin, azithromycin, and Flagyl. Rocephin and azithromycin to cover community-acquired pneumonia and Flagyl for anaerobic coverage for possible aspiration pneumonia. Continue antibiotics. Check followup labs, chest x-ray. Monitor leukocytosis and sepsis. Continue aspiration precautions. 2. Dementia, aspiration risk. 3. Dyslipidemia, hyperlipidemia. Treatment per primary care team. 4. Hypertension. Blood pressure treatment per primary care team for hypertension. 5. Hypokalemia. 6. Anemia. 7. SIRS criteria. 8. COVID testing negative. 9. Continue treatment per primary provider and consultants. 10. Orders were noted and entered. 11. No known drug allergies. 12. Social history is negative. 13. Family history is noncontributory. 14. MAR is noted. 15. Case was discussed with RN. Thank you for this consultation. Shan Arnold M.D. DR: DONNA JOB#: [id number] CC: GLEN
[2020-09-24] VITALS: BP 122/70
[2020-09-24] MEDS: cefTRIAXone 1 GM in D5W 55 ML IVPB SCH ×2
[2020-09-24] MEDS: Azithromycin 500 MG in D5W 275 ML IV SCH (01:22)
[2020-09-24 04:00] VITALS: BP 114/61
[2020-09-24] MEDS: metroNIDAZOLE 500mg tab ORAL SCH ×3 (06:38→22:14)
--- NOTE | 2020-09-24 07:05 | NUR ---
NURSE NOTES: Received report from VIRGILIO Graf. Patient is AO x1 in bed, asleep. Breathing is even and unlabored with no signs of respiratory distress. No pain or discomfort noted at this time. Pt has L upper arm 20G saline lock, patent and intact. Pt has bilateral soft wrist restraints for safety. Pt has 16 fr mills patent and intact. Bed in low and locked position, call light within reach.
--- NOTE | 2020-09-24 07:15 | NUR ---
NURSE HAND-OFF REPORT: Important Events on Shift:[] Patient Status: [STABLE] Diet: [REGULAR] Pending Orders: [] Pending Results/Labs:[] Pending MD notification:[] Latest Vital Signs: Temperature 97.5 , Pulse 83 , B/P 114 /61 , Respiratory Rate 20 , O2 SAT 97 , Room Air, O2 Flow Rate . Vital Sign Comment: [] EKG Rhythm: Sinus Rhythm Rhythm change?: N MD Notified?: - MD Response: Latest [place] Fall Score: 60 Fall Risk: High Risk Safety Measures: Call light Within Reach, Bed Alarm Zone 1, Side Rails Side Rails x3, Bed position Low and Locked. Fall Precautions: Yellow Socks Yellow Gown Patient Fall Education Report given to [FAN POOLE]. Addendum: 09/24/20 at 0728 by Kevon Brown RN PT been NPO for procedure today CT Angio
[2020-09-24 08:00] VITALS: BP 144/90
[2020-09-24] MEDS: Benazepril 10mg tab ORAL SCH (09:44)
[2020-09-24] MEDS: Memantine 10mg tab ORAL SCH ×2 (09:44→22:14)
[2020-09-24] MEDS: LORazepam Inj 2mg/ml 1ml IV PRN ×2 (09:45→18:27)
[2020-09-24] MEDS: Heparin 5000 units/ml inj SUBQ SCH ×2 (09:45→22:15)
[2020-09-24 10:23] LABS: BASOPHILS % (AUTO) 1.1 % (0.0-2.0); EOSINOPHILS % (AUTO) 0.6 % (0.0-3.0); HEMATOCRIT 33.1 % (37.0-47.0); HEMOGLOBIN 11.3 G/DL (12.0-16.0); LYMPHOCYTES % (AUTO) 8.9 % (20.0-45.0); MEAN CORPUSCULAR VOLUME 84 FL (80-99); MONOCYTES % (AUTO) 5.3 % (1.0-10.0); NEUTROPHILS % (AUTO) 84.1 % (45.0-75.0); PLATELET COUNT 314 K/UL (150-450); RED BLOOD COUNT 3.92 M/UL (4.20-5.40); RED CELL DISTRIBUTION WIDTH 13.3 % (11.6-14.8); WHITE BLOOD COUNT 9.7 K/UL (4.8-10.8)
[2020-09-24 10:46] LABS: ALANINE AMINOTRANSFERASE 15 U/L (12-78); ALBUMIN 2.6 G/DL (3.4-5.0); ALBUMIN/GLOBULIN RATIO 0.5 (1.0-2.7); ALKALINE PHOSPHATASE 69 U/L (46-116); ANION GAP 8 mmol/L (5-15); ASPARTATE AMINO TRANSFERASE 25 U/L (15-37); BILIRUBIN,TOTAL 0.5 MG/DL (0.2-1.0); BLOOD UREA NITROGEN 10 mg/dL (7-18); CALCIUM 8.7 MG/DL (8.5-10.1); CARBON DIOXIDE 26 MMOL/L (21-32); CHLORIDE 104 MMOL/L (98-107); CREATININE 0.7 MG/DL (0.55-1.30); POTASSIUM 3.6 MMOL/L (3.5-5.1); SODIUM 138 MMOL/L (136-145)
[2020-09-24 12:00] VITALS: BP 133/82
--- NOTE | 2020-09-24 12:20 | Diagnostic Imaging Report ---
CLINICAL INDICATION: Chest pain, abdominal pain, and back pain TECHNIQUE: IV administration nonionic contrast. Arterial phase spiral acquisition obtained through the chest, abdomen and pelvis. Multiplanar and 3-D reconstructions were generated on an integrated workstation. Total dose length product 222mGycm. CTDIvol(s) 2, 41, 3 mGy. Dose reduction achieved using automated exposure control COMPARISON: Noted FINDINGS Aorta and branches: The thoracic aorta is normal in caliber. No evidence of dissection or aneurysm demonstrated. Normal caliber and branching anatomy of the great neck vessels. No evidence of abdominal aortic aneurysm or dissection. The abdominal visceral vessels are patent and nonstenotic. Patent and nonstenotic bilateral common, external, and proximal internal iliac arteries are the exam protocol was not tailored for evaluation of pulmonary emboli. However, the pulmonary arteries are well opacified, and there are no findings to suggest acute pulmonary embolus demonstrated. Chest: Small focal areas of atelectasis and consolidation are seen in the posterior inferior left upper lobe. More hazy areas of opacity are also seen in the posterior left upper lobe. More extensive consolidation, atelectasis, as well as small irregular nodular opacities are seen in the left lower lobe. Nodular opacities as well as areas of infiltrate are seen in the left upper lobe. Near the base of the right upper lobe, there is suggestion of some tree-in-bud type opacities. The the right middle lobe is completely ectatic. Bronchiectatic air bronchograms within the collapsed right middle lobe suggests that this is due to chronic scarring with cicatrization. Fairly extensive micronodular opacities as well as more patchy opacities and larger nodular opacities are seen throughout the right lower lobe. A large calcified granuloma is seen in the inferior right lower lobe. There is trace pleural fluid on the right. Abdomen pelvis: The liver demonstrates multiple somewhat ill-defined low-attenuation lesions which are not clearly cystic in the right lobe, measuring up to 1.7 cm in diameter. The gallbladder is absent, presumed surgically removed. There is dilatation of the extrahepatic bile ducts, common bile duct measuring up to 9 mm in diameter. There is also ectasia of the pancreatic duct. The pancreas is otherwise unremarkable. The spleen, adrenals are unremarkable. The kidneys demonstrate bilateral cysts. The uterus and adnexal structures are unremarkable. The bladder is empty, contains a Berrios catheter. Lateral to the upper pole of the right kidney and posterior to the right hepatic lobe, there is an unusual soft tissue opacity that measures 2 cm in diameter, which appears to be contiguous with a soft tissue opacity extending through the rib musculature to the skin surface. There is also a slight focal irregularity of the adjacent 10th rib. The appendix is normal. Moderate retained stool is seen throughout the colon, particularly in the ascending colon. There are colonic diverticula. No evidence of diverticulitis. No small bowel distention. No free or loculated intraperitoneal gas or fluid is evident. The bones are unremarkable except for mild degenerative spondylosis changes. IMPRESSION: No evidence of acute aortic dissection or other acute vascular pathology Extensive bilateral pulmonary parenchymal disease, with combination of atelectasis, patchy consolidative opacities, nodular opacities, and tree-in-bud opacities. Appearance is nonspecific but likely reflects active inflammatory disease. There may be a significant chronic component as well. 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 Possibilities include complicated cysts, hemangiomas, neoplasm. Consider liver specific CT or MRI for better characterization Absent gallbladder. Dilated extrahepatic bile ducts without evidence of downstream obstructive lesion, likely related to age and postcholecystectomy state. Correlate with liver function tests, consider MRCP for better characterization if clinically indicated Mildly ectatic pancreatic duct, significance uncertain Unusual soft tissue opacity lateral to the upper pole right kidney. Significance uncertain, but by appearance may represent a old surgical drain tract to correlate with clinical history Colonic diverticulosis. No evidence of diverticulitis Retained colonic stool Berrios catheter, degenerative spondylosis incidentally noted The CT scanner at [facility] is accredited by the [employer] and the scans are performed using protocols designed to limit radiation exposure to as low as reasonably achievable to attain images of sufficient resolution adequate for diagnostic evaluation.
--- NOTE | 2020-09-24 12:35 | Surgery Progress Note ---
Surgery Progress Note Subjective Additional Comments cta noted labs stable no n/v comfortable Objective Last 24 Hour Vital Signs Date Time Temp Pulse Resp B/P (MAP) Pulse Ox O2 Delivery O2 Flow Rate FiO2 09/24/20 10:15 100 20 144/90 96 09/24/20 09:45 100 20 144/90 96 09/24/20 09:44 144/90 09/24/20 09:44 100 144/90 09/24/20 09:00 Room Air 09/24/20 08:00 96.7 100 20 144/90 (108) 96 09/24/20 08:00 103 09/24/20 04:00 97.5 90 20 114/61 (78) 97 09/24/20 04:00 83 09/24/20 00:00 83 09/24/20 00:00 97.5 85 20 122/70 (87) 96 09/23/20 22:35 100 20 128/80 95 09/23/20 22:05 113 20 130/83 95 09/23/20 21:00 Room Air 09/23/20 20:00 99.0 113 20 130/83 (99) 95 09/23/20 20:00 114 09/23/20 16:00 103 09/23/20 16:00 97.5 62 20 124/68 (86) 96 I&O Intake and Output 09/23/20 09/24/20 19:00 07:00 Output Total 700 ml 400 ml Balance -700 ml -400 ml Output Urine Total 700 ml 400 ml Dressing: other Wound: other Cardiovascular: RSR Respiratory: decreased breath sounds Abdomen: soft, non-tender, present bowel sounds Extremities: no edema, no tenderness, no cyanosis Laboratory Tests Test 09/24/20 09:30 White Blood Count 9.7 K/UL (4.8-10.8) Red Blood Count 3.92 M/UL (4.20-5.40) L Hemoglobin 11.3 G/DL (12.0-16.0) L Hematocrit 33.1 % (37.0-47.0) L Mean Corpuscular Volume 84 FL (80-99) Mean Corpuscular Hemoglobin 28.8 PG (27.0-31.0) Mean Corpuscular Hemoglobin Concent 34.2 G/DL (32.0-36.0) Red Cell Distribution Width 13.3 % (11.6-14.8) Platelet Count 314 K/UL (150-450) Mean Platelet Volume 8.1 FL (6.5-10.1) Neutrophils (%) (Auto) 84.1 % (45.0-75.0) H Lymphocytes (%) (Auto) 8.9 % (20.0-45.0) L Monocytes (%) (Auto) 5.3 % (1.0-10.0) Eosinophils (%) (Auto) 0.6 % (0.0-3.0) Basophils (%) (Auto) 1.1 % (0.0-2.0) Sodium Level 138 MMOL/L (136-145) Potassium Level 3.6 MMOL/L (3.5-5.1) Chloride Level 104 MMOL/L (98-107) Carbon Dioxide Level 26 MMOL/L (21-32) Anion Gap 8 mmol/L (5-15) Blood Urea Nitrogen 10 mg/dL (7-18) Creatinine 0.7 MG/DL (0.55-1.30) Estimat Glomerular Filtration Rate > 60 mL/min (>60) Glucose Level 88 MG/DL (74-106) Calcium Level 8.7 MG/DL (8.5-10.1) Total Bilirubin 0.5 MG/DL (0.2-1.0) Aspartate Amino Transf (AST/SGOT) 25 U/L (15-37) Alanine Aminotransferase (ALT/SGPT) 15 U/L (12-78) Alkaline Phosphatase 69 U/L (46-116) Total Protein 7.5 G/DL (6.4-8.2) Albumin 2.6 G/DL (3.4-5.0) L Globulin 4.9 g/dL Albumin/Globulin Ratio 0.5 (1.0-2.7) L Plan Problems: (1) Failure to thrive (2) Malnutrition (3) Chest pain Assessment & Plan: unable to do CTA r/o dissection unlikely given clinical status and exam plain film noted cont bp will monitor Aorta and branches: The thoracic aorta is normal in caliber. No evidence of dissection or aneurysm demonstrated. Normal caliber and branching anatomy of the great neck vessels. No evidence of abdominal aortic aneurysm or dissection. The abdominal visceral vessels are patent and nonstenotic. Patent and nonstenotic bilateral common, external, and proximal internal iliac arteries are the exam protocol was not tailored for evaluation of pulmonary emboli. However, the pulmonary arteries are well opacified, and there are no findings to suggest acute pulmonary embolus demonstrated. Chest: Small focal areas of atelectasis and consolidation are seen in the posterior inferior left upper lobe. More hazy areas of opacity are also seen in the posterior left upper lobe. More extensive consolidation, atelectasis, as well as small irregular nodular opacities are seen in the left lower lobe. Nodular opacities as well as areas of infiltrate are seen in the left upper lobe. Near the base of the right upper lobe, there is suggestion of some tree-in-bud type opacities. The the right middle lobe is completely ectatic. Bronchiectatic air bronchograms within the collapsed right middle lobe suggests that this is due to chronic scarring with cicatrization. Fairly extensive micronodular opacities as well as more patchy opacities and larger nodular opacities are seen throughout the right lower lobe. A large calcified granuloma is seen in the inferior right lower lobe. There is trace pleural fluid on the right. Abdomen pelvis: The liver demonstrates multiple somewhat ill-defined low-attenuation lesions which are not clearly cystic in the right lobe, measuring up to 1.7 cm in diameter. The gallbladder is absent, presumed surgically removed. There is dilatation of the extrahepatic bile ducts, common bile duct measuring up to 9 mm in diameter. There is also ectasia of the pancreatic duct. The pancreas is otherwise unremarkable. The spleen, adrenals are unremarkable. The kidneys demonstrate bilateral cysts. The uterus and adnexal structures are unremarkable. The bladder is empty, contains a Berrios catheter. Lateral to the upper pole of the right kidney and posterior to the right hepatic lobe, there is an unusual soft tissue opacity that measures 2 cm in diameter, which appears to be contiguous with a soft tissue opacity extending through the rib musculature to the skin surface. There is also a slight focal irregularity of the adjacent 10th rib. The appendix is normal. Moderate retained stool is seen throughout the colon, particularly in the ascending colon. There are colonic diverticula. No evidence of diverticulitis. No small bowel distention. No free or loculated intraperitoneal gas or fluid is evident. The bones are unremarkable except for mild degenerative spondylosis changes. IMPRESSION: No evidence of acute aortic dissection or other acute vascular pathology Extensive bilateral pulmonary parenchymal disease, with combination of atelectasis, patchy consolidative opacities, nodular opacities, and tree-in-bud opacities. Appearance is nonspecific but likely reflects active inflammatory disease. There may be a significant chronic component as well. 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 Possibilities include complicated cysts, hemangiomas, neoplasm. Consider liver specific CT or MRI for better characterization Absent gallbladder. Dilated extrahepatic bile ducts without evidence of downstream obstructive lesion, likely related to age and postcholecystectomy state. Correlate with liver function tests, consider MRCP for better characterization if clinically indicated Mildly ectatic pancreatic duct, significance uncertain Unusual soft tissue opacity lateral to the upper pole right kidney. Significance uncertain, but by appearance may represent a old surgical drain tract to correlate with clinical history Colonic diverticulosis. No evidence of diverticulitis Retained colonic stool Berrios catheter, degenerative spondylosis incidentally noted (4) Pneumonia (5) Failure to thrive in adult Assessment & Plan: bmi 16 alb low high risk for malnutrition fairly bedbound overall needs nutritional optimization respite coordinator eval DAILY ESTIMATED NEEDS: Needs based on Cardiac, pulmonary 37.3kg 30-35 kcals/kg 5152-9046 total kcals 1-1.5 g protein/kg 37-56 g total protein 25-35ml/kcal mL/kg [id number] total fluid mLs NUTRITION DIAGNOSIS: Altered nutrition related lab values r/t clinical status as evidenced by low K(2.7->wnl), low phos(2.3), low mag(1.7). CURRENT DIET: Regular ms finely chopped PO DIET RECOMMENDATIONS--->>> Maintain REGULAR DIET/ Texture per VP PLATFORMS ADDITIONAL RECOMMENDATIONS: 1) Add Ensure Enlive BID 2) Obtain a calibrated bed scale wts 3) Replete lytes-> low phos, mg 4) VP PLATFORMS eval for appropriate texture Shadi Subramanian Sep 24, 2020 12:35
--- NOTE | 2020-09-24 12:44 | Pulmonology Progress Note ---
Subjective ROS Limited/Unobtainable: Yes Interval Events: None new reported Constitutional: Reports: no symptoms; Denies: fever HEENT: Repors: no symptoms Respiratory: Reports: no symptoms Cardiovascular: Reports: no symptoms Gastrointestinal/Abdominal: Denies: nausea, vomiting Allergies: Coded Allergies: No Known Allergies (Unverified , 09/21/20) Objective Last 24 Hour Vital Signs Date Time Temp Pulse Resp B/P (MAP) Pulse Ox O2 Delivery O2 Flow Rate FiO2 09/24/20 12:00 98.7 60 20 133/82 (99) 98 09/24/20 10:15 100 20 144/90 96 09/24/20 09:45 100 20 144/90 96 09/24/20 09:44 144/90 09/24/20 09:44 100 144/90 09/24/20 09:00 Room Air 09/24/20 08:00 96.7 100 20 144/90 (108) 96 09/24/20 08:00 103 09/24/20 04:00 97.5 90 20 114/61 (78) 97 09/24/20 04:00 83 09/24/20 00:00 83 09/24/20 00:00 97.5 85 20 122/70 (87) 96 09/23/20 22:35 100 20 128/80 95 09/23/20 22:05 113 20 130/83 95 09/23/20 21:00 Room Air 09/23/20 20:00 99.0 113 20 130/83 (99) 95 09/23/20 20:00 114 09/23/20 16:00 103 09/23/20 16:00 97.5 62 20 124/68 (86) 96 Intake and Output 09/23/20 09/24/20 19:00 07:00 Output Total 700 ml 400 ml Balance -700 ml -400 ml Output Urine Total 700 ml 400 ml Objective 09/24 saturating well on RA; NAD General Appearance: no acute distress, other - thin HEENT: normocephalic Respiratory: chest wall non-tender, lungs clear Cardiovascular: normal peripheral pulses, normal rate Abdomen: normal bowel sounds Microbiology Date/Time Source Procedure Growth Status 09/22/20 08:15 Blood Blood Culture - Preliminary NO GROWTH AFTER 24 HOURS Resulted 09/22/20 07:50 Blood Blood Culture - Preliminary NO GROWTH AFTER 24 HOURS Resulted Laboratory Tests 09/24/20 09:30: White Blood Count 9.7, Red Blood Count 3.92L, Hemoglobin 11.3L, Hematocrit 33.1L , Mean Corpuscular Volume 84, Mean Corpuscular Hemoglobin 28.8, Mean Corpuscular Hemoglobin Concent 34.2, Red Cell Distribution Width 13.3, Platelet Count 314, Mean Platelet Volume 8.1, Neutrophils (%) (Auto) 84.1H, Lymphocytes (%) (Auto) 8.9L, Monocytes (%) (Auto) 5.3, Eosinophils (%) (Auto) 0.6, Basophils (%) (Auto) 1.1, Sodium Level 138, Potassium Level 3.6, Chloride Level 104, Carbon Dioxide Level 26, Anion Gap 8, Blood Urea Nitrogen 10, Creatinine 0.7, Estimat Glomerular Filtration Rate > 60, Glucose Level 88, Calcium Level 8.7, Total Bilirubin 0.5, Aspartate Amino Transf (AST/SGOT) 25, Alanine Aminotransferase (ALT/SGPT) 15, Alkaline Phosphatase 69, Total Protein 7.5, Albumin 2.6L, Globulin 4.9, Albumin/Globulin Ratio 0.5L Current Medications Medications (Trade) Dose Ordered Sig/Martin Route PRN Reason Start Time Stop Time Status Last Admin Dose Admin Amlodipine Besylate (Norvasc) 10 mg DAILY ORAL 09/23/20 09:00 10/23/20 08:59 09/24/20 09:44 Azithromycin 500 mg/Dextrose 275 ml @ 275 mls/hr Q24HRS IV 09/25/20 01:00 09/28/20 00:59 Benazepril HCl (Lotensin) 40 mg DAILY ORAL 09/23/20 09:00 10/23/20 08:59 09/24/20 09:44 Ceftriaxone Sodium 1 gm/ Dextrose 55 ml @ 110 mls/hr Q24HRS IVPB 09/23/20 00:00 09/30/20 00:00 09/24/20 00:00 Heparin Sodium (Porcine) (Heparin 5000 units/ml) 5,000 units EVERY 12 HOURS SUBQ 09/22/20 21:30 11/06/20 21:29 09/24/20 09:45 Lorazepam (Ativan 2mg/ml 1ml) 0.5 mg Q6H PRN IV Agitation 09/22/20 21:15 09/29/20 21:14 09/24/20 09:45 Memantine (Namenda) 10 mg Q12HR ORAL 09/23/20 09:00 10/23/20 08:59 09/24/20 09:44 Metronidazole (Flagyl) 500 mg EVERY 8 HOURS ORAL 09/22/20 22:00 09/29/20 21:59 09/24/20 06:38 Mirtazapine (Remeron) 7.5 mg BEDTIME ORAL 09/23/20 21:00 12/22/20 20:59 09/23/20 21:24 Quetiapine Fumarate (SEROqueL) 50 mg QHS ORAL 09/22/20 21:30 11/06/20 21:29 09/23/20 21:24 Trazodone HCl (Desyrel) 50 mg BEDTIME ORAL 09/22/20 21:30 10/22/20 21:29 09/23/20 21:24 Assessment/Plan Assessment/Plan 1. Pneumonia - Currently saturating well on room air. - Provide supplemental oxygen as needed. - On azithromycin, Rocephin. - also on flagyl for anaerobic coverage for possible aspiration pneumonia - CXR 09/24 shows mildly improved findings 2. Chest pain - CT angio C/A/P- neg for aortic dissection; ct chest shows extensive infiltrates; possibly chronic 3. Hypertension - BP management per nephro We will follow. The care for this patient was discussed with my supervising physician. Time spent for this case was approximately 31 minutes. Chiki Koch Sep 24, 2020 12:44 Casimiro Miranda MD Sep 24, 2020 14:49
--- NOTE | 2020-09-24 13:26 | Diagnostic Imaging Report ---
Indication: Shortness of breath Technique: One view of the chest Comparison: 09/21/2020 Findings: Bilateral infiltrates appear slightly improved, with in particular slightly less airspace consolidation in the mid lungs bilaterally. Nonetheless, considerable disease persists. The pleural spaces remain clear. The heart size is normal. Impression: Slightly improved bilateral infiltrates since previous exam
[2020-09-24 16:00] VITALS: BP 130/72
[2020-09-24] MEDS ORDERED: Tubing IV Secondary IV ONE (16:39)
[2020-09-24] MEDS ORDERED: D5W 275ml ONE (16:39)
--- NOTE | 2020-09-24 16:59 | General Progress Note ---
Subjective Date patient seen: Sep 24, 2020 ROS Limited/Unobtainable: Yes Allergies: Coded Allergies: No Known Allergies (Unverified , 09/21/20) Subjective No acute events overnight per nursing. Patient still altered, some verbalization but incoherent. Reports generalized pain. No fevers or chills or SOB. Further subjective history unable to be obtained due to ALOC. Unable to obtain further ROS due to ALOC Objective Last 24 Hour Vital Signs Date Time Temp Pulse Resp B/P (MAP) Pulse Ox O2 Delivery O2 Flow Rate FiO2 09/24/20 16:00 98.1 87 18 130/72 (91) 96 09/24/20 12:00 98.7 60 20 133/82 (99) 98 09/24/20 12:00 79 09/24/20 10:15 100 20 144/90 96 09/24/20 09:45 100 20 144/90 96 09/24/20 09:44 144/90 09/24/20 09:44 100 144/90 09/24/20 09:00 Room Air 09/24/20 08:00 96.7 100 20 144/90 (108) 96 09/24/20 08:00 103 09/24/20 04:00 97.5 90 20 114/61 (78) 97 09/24/20 04:00 83 09/24/20 00:00 83 09/24/20 00:00 97.5 85 20 122/70 (87) 96 09/23/20 22:35 100 20 128/80 95 09/23/20 22:05 113 20 130/83 95 09/23/20 21:00 Room Air 09/23/20 20:00 99.0 113 20 130/83 (99) 95 09/23/20 20:00 114 Intake and Output 09/23/20 09/24/20 19:00 07:00 Output Total 700 ml 400 ml Balance -700 ml -400 ml Output Urine Total 700 ml 400 ml Laboratory Tests 09/24/20 09:30: White Blood Count 9.7, Red Blood Count 3.92L, Hemoglobin 11.3L, Hematocrit 33.1L , Mean Corpuscular Volume 84, Mean Corpuscular Hemoglobin 28.8, Mean Corpuscular Hemoglobin Concent 34.2, Red Cell Distribution Width 13.3, Platelet Count 314, Mean Platelet Volume 8.1, Neutrophils (%) (Auto) 84.1H, Lymphocytes (%) (Auto) 8.9L, Monocytes (%) (Auto) 5.3, Eosinophils (%) (Auto) 0.6, Basophils (%) (Auto) 1.1, Sodium Level 138, Potassium Level 3.6, Chloride Level 104, Carbon Dioxide Level 26, Anion Gap 8, Blood Urea Nitrogen 10, Creatinine 0.7, Estimat Glomerular Filtration Rate > 60, Glucose Level 88, Calcium Level 8.7, Total Bilirubin 0.5, Aspartate Amino Transf (AST/SGOT) 25, Alanine Aminotransferase (ALT/SGPT) 15, Alkaline Phosphatase 69, Total Protein 7.5, Albumin 2.6L, Globulin 4.9, Albumin/Globulin Ratio 0.5L Height (Feet): 5 Height (Inches): 0.00 Weight (Pounds): 82 Objective General: WDWN female in NAD, resting comfortably in bed, altered, A&O x 1 HEENT: Normocephalic cephalic atraumatic, pupils equal round reactive to light and accommodation, nares patent and no symmetrical, no tonsillar exudates, mucous membranes moist + poor dentition CV: Regular rate regular rhythm, no murmurs, rubs, or gallops Pulm: Lungs clear to auscultation bilaterally. No wheezes, rhonchi, or rales GI: Soft, nontender, nondistended, bowel sounds present Neuro: CN 2-12 intact bilaterally, no focal signs. Ext: No lower extremity edema bilaterally Skin: no rashes lesions or ulcers Msk: Joints symmetrical in upper extremity and lower extremity bilaterally, no joint swelling. Lymph: No lymphadenopathy in upper extremity and lower extremity 09/24/20 CT angio C/A/P No evidence of acute aortic dissection or other acute vascular pathology Extensive bilateral pulmonary parenchymal disease, with combination of atelectasis, patchy consolidative opacities, nodular opacities, and tree-in-bud opacities. Appearance is nonspecific but likely reflects active inflammatory disease. There may be a significant chronic component as well. 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 Possibilities include complicated cysts, hemangiomas, neoplasm. Consider liver specific CT or MRI for better characterization Absent gallbladder. Dilated extrahepatic bile ducts without evidence of downstream obstructive lesion, likely related to age and postcholecystectomy state. Correlate with liver function tests, consider MRCP for better characterization if clinically indicated Mildly ectatic pancreatic duct, significance uncertain Unusual soft tissue opacity lateral to the upper pole right kidney. Significance uncertain, but by appearance may represent a old surgical drain tract to correlate with clinical history Colonic diverticulosis. No evidence of diverticulitis Retained colonic stool Berrios catheter, degenerative spondylosis incidentally noted Assessment/Plan Assessment/Plan: This is a 80-year-old female with a past medical history of hypertension, hyperlipidemia and dementia presenting with chest pain cough and suspected bilateral pneumonia. #Bilateral pneumonia, CAP? Aspiration? #Chest pain, suspect due to above - CT Angio C/A/P without dissection #Leukocytosis secondary to above, now improving #Elevated LDH #elevated d-dimer #Anemia #hyperlipidemia > EKG reviewed. QTC 425 -Admit to telemetry -CT Angio C/A/P negative for dissection -Follow cultures - NTD -COVID negative -Abx per ID -Rocephin (09/22 - ) -Azithromycin (09/22 - ) -Flagyl (09/22 - ) -Appreciate ID consult: Dr. Denny -Appreciate Pulm consult: Dr. Miranda -Consider Cardiology consult -troponin negative -2d echo -IV fluids and BP management per nephro #hypokalemia -Replete PRN -Nephro consulted #dementia #acute metabolic encephalopathy 2/2 above -treat as above FENPPX DVTPPX: per primary. HSQ GI PPX: none at this time Fluids: per nephro Diet: renal Lines: PIV PT/OT: pending Code status: Full per policy Dispo: pending resolution of above Reason for Continued Hospitalization: Pneumonia, rule out COVID MIPS ([employer]it-based Incentive Payment System) Applicable CPT: 26879, 31860 CHECK ALL THAT ARE MET: [] Measure #5 (CHF): All ages. Prescribe GABE/ARB upon discharge for patients with left ventricular systolic dysfunction. If not, the reason is clearly documented in the medical chart [] Measure #8 (CHF): All ages. Prescribe a beta frank upon discharge for patients with left ventricular systolic dysfunction. If not, the reason is clearly documented in the medical chart. [] Measure #47: Advance care plan or surrogate decision maker documented in the medical record. [x] Measure #130 The provider has documented, updated, or reviewed the [facility] current medication list and has documented it in the patients note. [x] Measure #374 (All): Send report to referring provider. [] Measure #407(Sepsis due to MSSA bacteremia): Age 18+ Patient treated with a beta-lactam antibiotic (Nafcillin, Oxacillin or Cefazolin) as definitive therapy. MEDICAL COMPLEXITYHigh complexity medical decision making (need 2/3 categories)Problem - need 4 points [x]Acute/new problem with new plan for workup (4 points, 1 max) [] Acute/new problem without additional workup (3 points, 1 max) [] Unstable chronic problem actively being managed (2 point each, 2 max) [x] Stable chronic problem actively being managed (1 point each, 2 max) [x] Self-limited/transient process (constipation, muscle ache, etc) (1 point each, 2 max) Data - need 4 points [x] Reviewed labs/imaging studies (1 points, 2 max) [x] Independent review of imaging (EKG, xrays, etc) (2 points, 2 max) [x] Discussed case with consult/other MD/RN (2 points, 2 max) High Risk - qualify if have one of the following: [x] Severe exacerbation of acute problem, acute mental status change, IV narcotics, monitoring drug levels (vancomycin, INR, tacrolimus etc) I spent 37 minutes on this patient's case, and 24 mins was dedicated to counseling and/or care coordination. Discussed with abdifatah PADILLA nephlaron, RN. Time of note may not reflect time of encounter Erich Posadas M.D. Sep 24, 2020 16:59
--- NOTE | 2020-09-24 19:20 | NUR ---
NURSE HAND-OFF REPORT: Important Events on Shift:NA Patient Status: Stable Diet: Regular Pending Orders: NA Pending Results/Labs:NA Pending MD notification:NA Latest Vital Signs: Temperature 98.1 , Pulse 72 , B/P 128 /80 , Respiratory Rate 18 , O2 SAT 97 , Room Air, O2 Flow Rate . Vital Sign Comment: Stable EKG Rhythm: Sinus Rhythm Rhythm change?: N MD Notified?: - MD Response: Latest Collado Fall Score: 60 Fall Risk: High Risk Safety Measures: Call light Within Reach, Bed Alarm Zone 1, Side Rails Side Rails x3, Bed position Low and Locked. Fall Precautions: Yellow Socks Yellow Gown Patient Fall Education Report given to VIRGILIO Graf.
--- NOTE | 2020-09-24 19:25 | NUR ---
NURSE NOTES: Got report from Huey POOLE. Pt in stable condition. Patient is A+Ox1 confused. No s/s of distress or discomfort noted. Pt on room air sating 97. Pt has L UA 20g slocked patent and intact. Pt has bilateral soft wrist restraints for safety. Pt has 16 fr mills patent and intact. Bed in low and locked position, call light within reach, bedside table within reach. Continue to monitor.
[2020-09-24 20:00] VITALS: BP 125/81
--- NOTE | 2020-09-24 22:11 | Neurology Progress Note ---
Interim History Interim History ROS Limited/Unobtainable: Yes Interim History remains somnolent and confused Objective Physical Exam Last Vital Signs Date Time Temp Pulse Resp B/P (MAP) Pulse Ox O2 Delivery O2 Flow Rate FiO2 09/24/20 18:57 72 18 128/80 97 09/24/20 16:00 98.1 09/24/20 09:00 Room Air Laboratory Tests Test 09/24/20 09:30 White Blood Count 9.7 K/UL (4.8-10.8) Red Blood Count 3.92 M/UL (4.20-5.40) L Hemoglobin 11.3 G/DL (12.0-16.0) L Hematocrit 33.1 % (37.0-47.0) L Mean Corpuscular Volume 84 FL (80-99) Mean Corpuscular Hemoglobin 28.8 PG (27.0-31.0) Mean Corpuscular Hemoglobin Concent 34.2 G/DL (32.0-36.0) Red Cell Distribution Width 13.3 % (11.6-14.8) Platelet Count 314 K/UL (150-450) Mean Platelet Volume 8.1 FL (6.5-10.1) Neutrophils (%) (Auto) 84.1 % (45.0-75.0) H Lymphocytes (%) (Auto) 8.9 % (20.0-45.0) L Monocytes (%) (Auto) 5.3 % (1.0-10.0) Eosinophils (%) (Auto) 0.6 % (0.0-3.0) Basophils (%) (Auto) 1.1 % (0.0-2.0) Sodium Level 138 MMOL/L (136-145) Potassium Level 3.6 MMOL/L (3.5-5.1) Chloride Level 104 MMOL/L (98-107) Carbon Dioxide Level 26 MMOL/L (21-32) Anion Gap 8 mmol/L (5-15) Blood Urea Nitrogen 10 mg/dL (7-18) Creatinine 0.7 MG/DL (0.55-1.30) Estimat Glomerular Filtration Rate > 60 mL/min (>60) Glucose Level 88 MG/DL (74-106) Calcium Level 8.7 MG/DL (8.5-10.1) Total Bilirubin 0.5 MG/DL (0.2-1.0) Aspartate Amino Transf (AST/SGOT) 25 U/L (15-37) Alanine Aminotransferase (ALT/SGPT) 15 U/L (12-78) Alkaline Phosphatase 69 U/L (46-116) Total Protein 7.5 G/DL (6.4-8.2) Albumin 2.6 G/DL (3.4-5.0) L Globulin 4.9 g/dL Albumin/Globulin Ratio 0.5 (1.0-2.7) L Impression/Recommendations Problems: (1) Chest pain (2) Pneumonia (3) Failure to thrive (4) Malnutrition (5) Failure to thrive in adult Diagnostic Impression acute encephalopathy, likely metabolic given sepsis and pneumonia covid ro dementia pt does not have capacity medical support delirium precautions Fox Payne MD Sep 24, 2020 22:11
[2020-09-24] MEDS: TraZODone 50mg tab ORAL SCH (22:14)
[2020-09-25] VITALS: BP 103/70
[2020-09-25] MEDS: cefTRIAXone 1 GM in D5W 55 ML IVPB SCH ×2
[2020-09-25] MEDS: Azithromycin 500 MG in D5W 275 ML IV SCH (00:53)
[2020-09-25 04:00] VITALS: BP 108/74
[2020-09-25] MEDS: metroNIDAZOLE 500mg tab ORAL SCH ×3 (05:32→21:50)
[2020-09-25 07:28] LABS: ANION GAP 8 mmol/L (5-15); BLOOD UREA NITROGEN 18 mg/dL (7-18); CALCIUM 8.9 MG/DL (8.5-10.1); CARBON DIOXIDE 27 MMOL/L (21-32); CHLORIDE 105 MMOL/L (98-107); CREATININE 0.9 MG/DL (0.55-1.30); POTASSIUM 3.8 MMOL/L (3.5-5.1); SODIUM 140 MMOL/L (136-145)
--- NOTE | 2020-09-25 07:30 | NUR ---
NURSE HAND-OFF REPORT: Important Events on Shift:[] Patient Status: [STABLE] Diet: [REGULAR] Pending Orders: [] Pending Results/Labs:[] Pending MD notification:[] Latest Vital Signs: Temperature 97.0 , Pulse 93 , B/P 108 /74 , Respiratory Rate 18 , O2 SAT 99 , Room Air, O2 Flow Rate . Vital Sign Comment: [] EKG Rhythm: Sinus Rhythm Rhythm change?: N MD Notified?: - MD Response: Latest Collado Fall Score: 60 Fall Risk: High Risk Safety Measures: Call light Within Reach, Bed Alarm Zone 1, Side Rails Side Rails x3, Bed position Low and Locked. Fall Precautions: Yellow Socks Yellow Gown Patient Fall Education Report given to [NELSON POOLE].
--- NOTE | 2020-09-25 07:30 | NUR ---
NURSE NOTES: Notified by rehabilitation therapy technician Alex that pt had 7 beats of VTach at 0600. Endorsed to morning VIRGILIO Jacques. Pt in stable condition.
--- NOTE | 2020-09-25 07:31 | NUR ---
NURSE NOTES: Received report from Massimo/VIRGILIO. Pt in bed, sleeping in semi-fowlers position. Pt on restrains, will monitor Q2hrs. On room air, no distress or SOB noted. IV on left UA 20G, SL, patent and clean. Bed in lowest position and locked. Call light within reach. Side rails up x3. Will continue plan of care.
--- NOTE | 2020-09-25 07:50 | NUR ---
CASE MANAGEMENT:REVIEW 09/25/20 SI: BILATERAL PNA. CHEST PAIN 97.0 99 18 108/74 99% ON RA IS: IV AZITHROMYCIN Q24 IV ROCEPHIN Q24 FLAGYL PO Q8HRS LOTENSIN PO QD NORVASC PO QD HEPARIN SQ Q12 SEROQUEL PO QHS : TELEMETRY STATUS DCP: FROM HOME
[2020-09-25 07:52] LABS: PHOSPHORUS 4.1 MG/DL (2.5-4.9)
[2020-09-25 08:00] VITALS: BP 131/71
[2020-09-25] MEDS: Memantine 10mg tab ORAL SCH ×2 (08:21→20:37)
[2020-09-25] MEDS: Benazepril 10mg tab ORAL SCH (08:21)
[2020-09-25] MEDS: Heparin 5000 units/ml inj SUBQ SCH ×2 (08:23→20:38)
--- NOTE | 2020-09-25 08:43 | Nephrology Progress Note ---
Assessment/Plan Plan #Hypokalemia #Sepsis #Pneumonia #Hypoxemic respiratory failure #AMS #history of dementia - admit to [facility] - [facility] - IVF - antibiotics - ID eval - pulm eval - neuro eval - monitor renal function time spent 65 min Subjective Subjective potassium normal today Objective Objective Last 24 Hour Vital Signs Date Time Temp Pulse Resp B/P (MAP) Pulse Ox O2 Delivery O2 Flow Rate FiO2 09/25/20 08:21 131/71 09/25/20 08:21 61 131/71 09/25/20 08:00 98.1 61 20 131/71 (91) 98 09/25/20 04:00 93 09/25/20 04:00 97.0 99 18 108/74 (85) 99 09/25/20 00:00 99 09/25/20 00:00 96.6 101 20 103/70 (81) 98 09/24/20 21:00 Room Air 09/24/20 20:00 97.2 66 20 125/81 (96) 94 09/24/20 20:00 108 09/24/20 18:57 72 18 128/80 97 09/24/20 18:27 87 18 130/72 96 09/24/20 16:00 98.1 87 18 130/72 (91) 96 09/24/20 16:00 92 09/24/20 12:00 98.7 60 20 133/82 (99) 98 09/24/20 12:00 79 09/24/20 10:15 100 20 144/90 96 09/24/20 09:45 100 20 144/90 96 09/24/20 09:44 144/90 09/24/20 09:44 100 144/90 09/24/20 09:00 Room Air Intake and Output 09/24/20 09/25/20 19:00 07:00 Output Total 1200 ml 400 ml Balance -1200 ml -400 ml Output Urine Total 1200 ml 400 ml # Voids 3 Laboratory Tests 09/24/20 09:30: White Blood Count 9.7, Red Blood Count 3.92L, Hemoglobin 11.3L, Hematocrit 33.1L , Mean Corpuscular Volume 84, Mean Corpuscular Hemoglobin 28.8, Mean Corpuscular Hemoglobin Concent 34.2, Red Cell Distribution Width 13.3, Platelet Count 314, Mean Platelet Volume 8.1, Neutrophils (%) (Auto) 84.1H, Lymphocytes (%) (Auto) 8.9L, Monocytes (%) (Auto) 5.3, Eosinophils (%) (Auto) 0.6, Basophils (%) (Auto) 1.1, Sodium Level 138, Potassium Level 3.6, Chloride Level 104, Carbon Dioxide Level 26, Anion Gap 8, Blood Urea Nitrogen 10, Creatinine 0.7, Estimat Glomerular Filtration Rate > 60, Glucose Level 88, Calcium Level 8.7, Total Bilirubin 0.5, Aspartate Amino Transf (AST/SGOT) 25, Alanine Aminotransferase (ALT/SGPT) 15, Alkaline Phosphatase 69, Total Protein 7.5, Albumin 2.6L, Globulin 4.9, Albumin/Globulin Ratio 0.5L 09/25/20 06:08: Sodium Level 140, Potassium Level 3.8, Chloride Level 105, Carbon Dioxide Level 27, Anion Gap 8, Blood Urea Nitrogen 18, Creatinine 0.9, Estimat Glomerular Filtration Rate > 60, Glucose Level 94, Calcium Level 8.9, Phosphorus Level 4.1, Magnesium Level 2.3 Height (Feet): 5 Height (Inches): 0.00 Weight (Pounds): 69 Roseanne Haley M.D. Sep 25, 2020 08:43
--- NOTE | 2020-09-25 09:58 | Neurology Progress Note ---
Interim History Interim History ROS Limited/Unobtainable: Yes Interim History remains confused, altered,less agitated Objective Physical Exam Last Vital Signs Date Time Temp Pulse Resp B/P (MAP) Pulse Ox O2 Delivery O2 Flow Rate FiO2 09/25/20 08:21 131/71 09/25/20 08:21 61 09/25/20 08:00 98.1 20 98 09/24/20 21:00 Room Air Laboratory Tests Test 09/25/20 06:08 Sodium Level 140 MMOL/L (136-145) Potassium Level 3.8 MMOL/L (3.5-5.1) Chloride Level 105 MMOL/L (98-107) Carbon Dioxide Level 27 MMOL/L (21-32) Anion Gap 8 mmol/L (5-15) Blood Urea Nitrogen 18 mg/dL (7-18) Creatinine 0.9 MG/DL (0.55-1.30) Estimat Glomerular Filtration Rate > 60 mL/min (>60) Glucose Level 94 MG/DL (74-106) Calcium Level 8.9 MG/DL (8.5-10.1) Phosphorus Level 4.1 MG/DL (2.5-4.9) Magnesium Level 2.3 MG/DL (1.8-2.4) Impression/Recommendations Problems: (1) Chest pain (2) Pneumonia (3) Failure to thrive (4) Malnutrition (5) Failure to thrive in adult Diagnostic Impression acute encephalopathy, likely metabolic given sepsis and pneumonia covid ro dementia pt does not have capacity medical support delirium precautions Fox Payne MD Sep 25, 2020 09:58
--- NOTE | 2020-09-25 11:44 | Pulmonology Progress Note ---
Subjective ROS Limited/Unobtainable: Yes Interval Events: None new reported Constitutional: Reports: no symptoms; Denies: fever HEENT: Repors: no symptoms Respiratory: Reports: no symptoms Cardiovascular: Reports: no symptoms Gastrointestinal/Abdominal: Denies: nausea, vomiting Allergies: Coded Allergies: No Known Allergies (Unverified , 09/21/20) Objective Last 24 Hour Vital Signs Date Time Temp Pulse Resp B/P (MAP) Pulse Ox O2 Delivery O2 Flow Rate FiO2 09/25/20 09:00 Room Air 09/25/20 08:21 131/71 09/25/20 08:21 61 131/71 09/25/20 08:00 98.1 61 20 131/71 (91) 98 09/25/20 04:00 93 09/25/20 04:00 97.0 99 18 108/74 (85) 99 09/25/20 00:00 99 09/25/20 00:00 96.6 101 20 103/70 (81) 98 09/24/20 21:00 Room Air 09/24/20 20:00 97.2 66 20 125/81 (96) 94 09/24/20 20:00 108 09/24/20 18:57 72 18 128/80 97 09/24/20 18:27 87 18 130/72 96 09/24/20 16:00 98.1 87 18 130/72 (91) 96 09/24/20 16:00 92 09/24/20 12:00 98.7 60 20 133/82 (99) 98 09/24/20 12:00 79 Intake and Output 09/24/20 09/25/20 19:00 07:00 Output Total 1200 ml 400 ml Balance -1200 ml -400 ml Output Urine Total 1200 ml 400 ml # Voids 3 Objective 09/25 no change 09/24 saturating well on RA; NAD General Appearance: no acute distress, cachetic HEENT: normocephalic Respiratory: chest wall non-tender, lungs clear Cardiovascular: normal peripheral pulses, normal rate Abdomen: normal bowel sounds Laboratory Tests 09/25/20 06:08: Sodium Level 140, Potassium Level 3.8, Chloride Level 105, Carbon Dioxide Level 27, Anion Gap 8, Blood Urea Nitrogen 18, Creatinine 0.9, Estimat Glomerular Filtration Rate > 60, Glucose Level 94, Calcium Level 8.9, Phosphorus Level 4.1, Magnesium Level 2.3 Current Medications Medications (Trade) Dose Ordered Sig/Martin Route PRN Reason Start Time Stop Time Status Last Admin Dose Admin Amlodipine Besylate (Norvasc) 10 mg DAILY ORAL 09/23/20 09:00 10/23/20 08:59 09/25/20 08:21 Azithromycin 500 mg/Dextrose 275 ml @ 275 mls/hr Q24HRS IV 09/25/20 01:00 09/28/20 00:59 09/25/20 00:53 Benazepril HCl (Lotensin) 40 mg DAILY ORAL 09/23/20 09:00 10/23/20 08:59 09/25/20 08:21 Ceftriaxone Sodium 1 gm/ Dextrose 55 ml @ 110 mls/hr Q24HRS IVPB 09/23/20 00:00 09/30/20 00:00 09/25/20 00:00 Heparin Sodium (Porcine) (Heparin 5000 units/ml) 5,000 units EVERY 12 HOURS SUBQ 09/22/20 21:30 11/06/20 21:29 09/25/20 08:23 Lorazepam (Ativan 2mg/ml 1ml) 0.5 mg Q6H PRN IV Agitation 09/22/20 21:15 09/29/20 21:14 09/24/20 18:27 Memantine (Namenda) 10 mg Q12HR ORAL 09/23/20 09:00 10/23/20 08:59 09/25/20 08:21 Metronidazole (Flagyl) 500 mg EVERY 8 HOURS ORAL 09/22/20 22:00 09/29/20 21:59 09/25/20 05:32 Mirtazapine (Remeron) 7.5 mg BEDTIME ORAL 09/23/20 21:00 12/22/20 20:59 09/24/20 22:13 Quetiapine Fumarate (SEROqueL) 50 mg QHS ORAL 09/22/20 21:30 11/06/20 21:29 09/24/20 22:13 Trazodone HCl (Desyrel) 50 mg BEDTIME ORAL 09/22/20 21:30 10/22/20 21:29 09/24/20 22:14 Assessment/Plan Assessment/Plan 1. Pneumonia - Currently saturating well on room air. - Provide supplemental oxygen as needed. - On azithromycin, Rocephin. - also on flagyl for anaerobic coverage for possible aspiration pneumonia - CXR 09/24 shows mildly improved findings 2. Chest pain - CT angio C/A/P- neg for aortic dissection; ct chest shows extensive infiltrates; possibly chronic 3. Hypertension - BP management per nephro We will follow. The care for this patient was discussed with my supervising physician. Time spent for this case was approximately 31 minutes. Chiki Koch Sep 25, 2020 11:43 Casimiro Miradna MD Sep 26, 2020 13:48
[2020-09-25 12:00] VITALS: BP 130/61
[2020-09-25 16:00] VITALS: BP 137/87
--- NOTE | 2020-09-25 16:17 | Infectious Diseases Prog Note ---
Assessment/Plan Assessment/Plan ASSESSMENT AND PLAN: 1. pneumonia, ? CAP, ? aspiration, sepsis, leukocytosis - ceftriaxone, azithromycin and flagyl - day # 3 - monitor labs and chest x-ray - clinically stable/improved - leukocytosis resolved 2. Dementia, aspiration risk. 3. Dyslipidemia, hyperlipidemia. Treatment per primary care team. 4. Hypertension. Blood pressure treatment per primary care team for hypertension. 5. Hypokalemia. 6. Anemia. 7. SIRS criteria. 8. COVID testing negative. 9. Continue treatment per primary provider and consultants. 10. Orders were noted and entered. 11. No known drug allergies. 12. Social history is negative. 13. Family history is noncontributory. 14. MAR is noted. 15. Case was discussed with RN. Subjective Constitutional: Reports: fatigue; Denies: fever HEENT: Denies: congestion Respiratory: Denies: shortness of breath Cardiovascular: Denies: chest pain Gastrointestinal/Abdominal: Denies: nausea Genitourinary: Reports: other Neurologic: Denies: headache Psychiatric: Denies: depression Skin: Denies: rash Hematologic: Denies: bleeding Musculoskeletal: Denies: pain Allergies: Coded Allergies: No Known Allergies (Unverified , 09/21/20) Objective Last 24 Hour Vital Signs Date Time Temp Pulse Resp B/P (MAP) Pulse Ox O2 Delivery O2 Flow Rate FiO2 09/25/20 12:00 96.8 76 21 130/61 (84) 97 09/25/20 11:45 77 09/25/20 09:00 Room Air 09/25/20 08:21 131/71 09/25/20 08:21 61 131/71 09/25/20 08:00 81 09/25/20 08:00 98.1 61 20 131/71 (91) 98 09/25/20 04:00 93 09/25/20 04:00 97.0 99 18 108/74 (85) 99 09/25/20 00:00 99 09/25/20 00:00 96.6 101 20 103/70 (81) 98 09/24/20 21:00 Room Air 09/24/20 20:00 97.2 66 20 125/81 (96) 94 09/24/20 20:00 108 09/24/20 18:57 72 18 128/80 97 09/24/20 18:27 87 18 130/72 96 Height (Feet): 5 Height (Inches): 0.00 Weight (Pounds): 69 General Appearance: no acute distress HEENT: normocephalic, atraumatic, anicteric, mucous membranes moist Respiratory/Chest: no respiratory distress, no accessory muscle use, crackles/rales, rhonchi - bilaterally Cardiovascular: normal rate, regular rhythm Abdomen: normal bowel sounds, soft, non tender, no organomegaly, non distended Genitourinary: other - no mills Extremities: no cyanosis Skin: no rash 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 Appearance is nonspecific but likely reflects active inflammatory disease. There may be a significant chronic component as well. 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 Possibilities include complicated cysts, hemangiomas, neoplasm. Consider liver specific CT or MRI for better characterization Absent gallbladder. Dilated extrahepatic bile ducts without evidence of downstream obstructive lesion, likely related to age and postcholecystectomy state. Correlate with liver function tests, consider MRCP for better characterization if clinically indicated Mildly ectatic pancreatic duct, significance uncertain Unusual soft tissue opacity lateral to the upper pole right kidney. Significance uncertain, but by appearance may represent a old surgical drain tract to correlate with clinical history Colonic diverticulosis. No evidence of diverticulitis Retained colonic stool Mills catheter, degenerative spondylosis incidentally noted Chest x-ray - 09/24/20 - Procedure: XRAY Chest 1v Indication: Shortness of breath Technique: One view of the chest Comparison: 09/21/2020 Findings: Bilateral infiltrates appear slightly improved, with in particular slightly less airspace consolidation in the mid lungs bilaterally. Nonetheless, considerable disease persists. The pleural spaces remain clear. The heart size is normal. Impression: Slightly improved bilateral infiltrates since previous exam Microbiology Date/Time Source Procedure Growth Status 09/22/20 09:48 Nasopharynx Coronavirus COVID-19 PCR ([facility]) - Final Complete 09/22/20 08:15 Blood Blood Culture - Preliminary NO GROWTH AFTER 24 HOURS Resulted covid-19 test - negative Labs Test 09/22/20 19:38 09/23/20 05:45 09/24/20 09:30 09/25/20 06:08 Urine Color Pale yellow Urine Appearance Clear Urine pH 7 (4.5-8.0) Urine Specific Lovely 1.010 (1.005-1.035) Urine Protein 1+ (NEGATIVE) Urine Glucose (UA) Negative (NEGATIVE) Urine Ketones Negative (NEGATIVE) Urine Blood 1+ (NEGATIVE) Urine Nitrite Negative (NEGATIVE) Urine Bilirubin Negative (NEGATIVE) Urine Urobilinogen Normal MG/DL (0.0-1.0) Urine Leukocyte Esterase Negative (NEGATIVE) Urine RBC 5-10 /HPF (0 - 2) Urine WBC 0-2 /HPF (0 - 2) Urine Squamous Epithelial Cells Many /LPF (NONE/OCC) Urine Amorphous Sediment Moderate /LPF (NONE) Urine Bacteria Few /HPF (NONE) Urine Starch White Blood Count 10.1 K/UL (4.8-10.8) 9.7 K/UL (4.8-10.8) Red Blood Count 3.66 M/UL (4.20-5.40) 3.92 M/UL (4.20-5.40) Hemoglobin 10.5 G/DL (12.0-16.0) 11.3 G/DL (12.0-16.0) Hematocrit 32.6 % (37.0-47.0) 33.1 % (37.0-47.0) Mean Corpuscular Volume 89 FL (80-99) 84 FL (80-99) Mean Corpuscular Hemoglobin 28.8 PG (27.0-31.0) 28.8 PG (27.0-31.0) Mean Corpuscular Hemoglobin Concent 32.4 G/DL (32.0-36.0) 34.2 G/DL (32.0-36.0) Red Cell Distribution Width 13.5 % (11.6-14.8) 13.3 % (11.6-14.8) Platelet Count 305 K/UL (150-450) 314 K/UL (150-450) Mean Platelet Volume 8.6 FL (6.5-10.1) 8.1 FL (6.5-10.1) Neutrophils (%) (Auto) % (45.0-75.0) 84.1 % (45.0-75.0) Lymphocytes (%) (Auto) % (20.0-45.0) 8.9 % (20.0-45.0) Monocytes (%) (Auto) % (1.0-10.0) 5.3 % (1.0-10.0) Eosinophils (%) (Auto) % (0.0-3.0) 0.6 % (0.0-3.0) Basophils (%) (Auto) % (0.0-2.0) 1.1 % (0.0-2.0) Differential Total Cells Counted 100 Neutrophils % (Manual) 84 % (45-75) Lymphocytes % (Manual) 7 % (20-45) Monocytes % (Manual) 9 % (1-10) Eosinophils % (Manual) 0 % (0-3) Basophils % (Manual) 0 % (0-2) Band Neutrophils 0 % (0-8) Platelet Estimate Adequate Platelet Morphology Normal Hypochromasia 1+ Sodium Level 139 MMOL/L (136-145) 138 MMOL/L (136-145) 140 MMOL/L (136-145) Potassium Level 4.0 MMOL/L (3.5-5.1) 3.6 MMOL/L (3.5-5.1) 3.8 MMOL/L (3.5-5.1) Chloride Level 105 MMOL/L (98-107) 104 MMOL/L (98-107) 105 MMOL/L (98-107) Carbon Dioxide Level 27 MMOL/L (21-32) 26 MMOL/L (21-32) 27 MMOL/L (21-32) Anion Gap 7 mmol/L (5-15) 8 mmol/L (5-15) 8 mmol/L (5-15) Blood Urea Nitrogen 8 mg/dL (7-18) 10 mg/dL (7-18) 18 mg/dL (7-18) Creatinine 0.6 MG/DL (0.55-1.30) 0.7 MG/DL (0.55-1.30) 0.9 MG/DL (0.55-1.30) Estimat Glomerular Filtration Rate > 60 mL/min (>60) > 60 mL/min (>60) > 60 mL/min (>60) Glucose Level 78 MG/DL (74-106) 88 MG/DL (74-106) 94 MG/DL (74-106) Calcium Level 8.1 MG/DL (8.5-10.1) 8.7 MG/DL (8.5-10.1) 8.9 MG/DL (8.5-10.1) Phosphorus Level 2.3 MG/DL (2.5-4.9) 4.1 MG/DL (2.5-4.9) Magnesium Level 1.7 MG/DL (1.8-2.4) 2.3 MG/DL (1.8-2.4) Total Bilirubin 0.5 MG/DL (0.2-1.0) Aspartate Amino Transf (AST/SGOT) 25 U/L (15-37) Alanine Aminotransferase (ALT/SGPT) 15 U/L (12-78) Alkaline Phosphatase 69 U/L (46-116) Total Protein 7.5 G/DL (6.4-8.2) Albumin 2.6 G/DL (3.4-5.0) Globulin 4.9 g/dL Albumin/Globulin Ratio 0.5 (1.0-2.7) Laboratory Tests Test 09/25/20 06:08 Sodium Level 140 MMOL/L (136-145) Potassium Level 3.8 MMOL/L (3.5-5.1) Chloride Level 105 MMOL/L (98-107) Carbon Dioxide Level 27 MMOL/L (21-32) Anion Gap 8 mmol/L (5-15) Blood Urea Nitrogen 18 mg/dL (7-18) Creatinine 0.9 MG/DL (0.55-1.30) Estimat Glomerular Filtration Rate > 60 mL/min (>60) Glucose Level 94 MG/DL (74-106) Calcium Level 8.9 MG/DL (8.5-10.1) Phosphorus Level 4.1 MG/DL (2.5-4.9) Magnesium Level 2.3 MG/DL (1.8-2.4) Current Medications Medications (Trade) Dose Ordered Sig/Martin Route PRN Reason Start Time Stop Time Status Last Admin Dose Admin Amlodipine Besylate (Norvasc) 10 mg DAILY ORAL 12/21/20 09:00 10/23/20 08:59 09/25/20 08:21 Azithromycin 500 mg/Dextrose 275 ml @ 275 mls/hr Q24HRS IV 09/25/20 01:00 09/28/20 00:59 09/25/20 00:53 Benazepril HCl (Lotensin) 40 mg DAILY ORAL 09/23/20 09:00 10/23/20 08:59 09/25/20 08:21 Ceftriaxone Sodium 1 gm/ Dextrose 55 ml @ 110 mls/hr Q24HRS IVPB 09/23/20 00:00 09/30/20 00:00 09/25/20 00:00 Heparin Sodium (Porcine) (Heparin 5000 units/ml) 5,000 units EVERY 12 HOURS SUBQ 09/22/20 21:30 11/06/20 21:29 09/25/20 08:23 Lorazepam (Ativan 2mg/ml 1ml) 0.5 mg Q6H PRN IV Agitation 09/22/20 21:15 09/29/20 21:14 09/24/20 18:27 Memantine (Namenda) 10 mg Q12HR ORAL 09/23/20 09:00 10/23/20 08:59 09/25/20 08:21 Metronidazole (Flagyl) 500 mg EVERY 8 HOURS ORAL 09/22/20 22:00 09/29/20 21:59 09/25/20 15:43 Mirtazapine (Remeron) 7.5 mg BEDTIME ORAL 09/23/20 21:00 12/22/20 20:59 09/24/20 22:13 Quetiapine Fumarate (SEROqueL) 50 mg QHS ORAL 09/22/20 21:30 11/06/20 21:29 09/24/20 22:13 Trazodone HCl (Desyrel) 50 mg BEDTIME ORAL 09/22/20 21:30 10/22/20 21:29 09/24/20 22:14 Shan Arnold MD Sep 25, 2020 16:17
--- NOTE | 2020-09-25 16:24 | General Progress Note ---
Subjective Date patient seen: Sep 25, 2020 ROS Limited/Unobtainable: Yes Allergies: Coded Allergies: No Known Allergies (Unverified , 09/21/20) Subjective No acute events overnight per nursing. Patient remains altered, sleepy today, though moves spontaneously when called by name. Further subjective history unable to be obtained due to ALOC. Unable to obtain further ROS due to ALOC Objective Last 24 Hour Vital Signs Date Time Temp Pulse Resp B/P (MAP) Pulse Ox O2 Delivery O2 Flow Rate FiO2 09/25/20 12:00 96.8 76 21 130/61 (84) 97 09/25/20 11:45 77 09/25/20 09:00 Room Air 09/25/20 08:21 131/71 09/25/20 08:21 61 131/71 09/25/20 08:00 81 09/25/20 08:00 98.1 61 20 131/71 (91) 98 09/25/20 04:00 93 09/25/20 04:00 97.0 99 18 108/74 (85) 99 09/25/20 00:00 99 09/25/20 00:00 96.6 101 20 103/70 (81) 98 09/24/20 21:00 Room Air 09/24/20 20:00 97.2 66 20 125/81 (96) 94 09/24/20 20:00 108 09/24/20 18:57 72 18 128/80 97 09/24/20 18:27 87 18 130/72 96 Intake and Output 09/24/20 09/25/20 19:00 07:00 Output Total 1200 ml 400 ml Balance -1200 ml -400 ml Output Urine Total 1200 ml 400 ml # Voids 3 Laboratory Tests 09/25/20 06:08: Sodium Level 140, Potassium Level 3.8, Chloride Level 105, Carbon Dioxide Level 27, Anion Gap 8, Blood Urea Nitrogen 18, Creatinine 0.9, Estimat Glomerular Filtration Rate > 60, Glucose Level 94, Calcium Level 8.9, Phosphorus Level 4.1, Magnesium Level 2.3 Height (Feet): 5 Height (Inches): 0.00 Weight (Pounds): 69 Objective General: WDWN female in NAD, resting comfortably in bed, sleeping, reacts to name being called HEENT: Normocephalic cephalic atraumatic, pupils equal round reactive to light and accommodation, nares patent and no symmetrical, no tonsillar exudates, mucous membranes moist + poor dentition CV: Regular rate regular rhythm, no murmurs, rubs, or gallops Pulm: Lungs clear to auscultation bilaterally. No wheezes, rhonchi, or rales GI: Soft, nontender, nondistended, bowel sounds present Neuro: CN 2-12 intact bilaterally, no focal signs. Ext: No lower extremity edema bilaterally Skin: no rashes lesions or ulcers Msk: Joints symmetrical in upper extremity and lower extremity bilaterally, no joint swelling. Lymph: No lymphadenopathy in upper extremity and lower extremity 09/24/20 CT angio C/A/P No evidence of acute aortic dissection or other acute vascular pathology Extensive bilateral pulmonary parenchymal disease, with combination of atelectasis, patchy consolidative opacities, nodular opacities, and tree-in-bud opacities. Appearance is nonspecific but likely reflects active inflammatory disease. There may be a significant chronic component as well. 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 Possibilities include complicated cysts, hemangiomas, neoplasm. Consider liver specific CT or MRI for better characterization Absent gallbladder. Dilated extrahepatic bile ducts without evidence of downstream obstructive lesion, likely related to age and postcholecystectomy state. Correlate with liver function tests, consider MRCP for better characterization if clinically indicated Mildly ectatic pancreatic duct, significance uncertain Unusual soft tissue opacity lateral to the upper pole right kidney. Significance uncertain, but by appearance may represent a old surgical drain tract to correlate with clinical history Colonic diverticulosis. No evidence of diverticulitis Retained colonic stool Berrios catheter, degenerative spondylosis incidentally noted Assessment/Plan Assessment/Plan: This is a 80-year-old female with a past medical history of hypertension, hyperlipidemia and dementia presenting with chest pain cough and suspected bilateral pneumonia. #Bilateral pneumonia, CAP? Aspiration? #Chest pain, suspect due to above - CT Angio C/A/P without dissection #Leukocytosis secondary to above, now improving #Elevated LDH #elevated d-dimer #Anemia - improving Hgb today #hyperlipidemia > EKG reviewed. QTC 425 -Admit to telemetry -CT Angio C/A/P negative for dissection -Follow cultures - NTD -COVID negative -Abx per ID -Rocephin (09/22 - ) -Azithromycin (09/22 - ) -Flagyl (09/22 - ) -Appreciate ID consult: Dr. Denny -Appreciate Pulm consult: Dr. Miranda -Consider Cardiology consult -troponin negative -2d echo -IV fluids and BP management per nephro #hypokalemia -Replete PRN -Nephro consulted #dementia #acute metabolic encephalopathy 2/2 above -treat as above FENPPX DVTPPX: per primary. HSQ GI PPX: none at this time Fluids: per nephro Diet: renal Lines: PIV PT/OT: pending Code status: Full per policy Dispo: pending resolution of above Reason for Continued Hospitalization: Pneumonia, IV antibiotics MIPS ([employer]it-based Incentive Payment System) Applicable CPT: 21956, 86317 CHECK ALL THAT ARE MET: [] Measure #5 (CHF): All ages. Prescribe GABE/ARB upon discharge for patients with left ventricular systolic dysfunction. If not, the reason is clearly documented in the medical chart [] Measure #8 (CHF): All ages. Prescribe a beta frank upon discharge for patients with left ventricular systolic dysfunction. If not, the reason is clearly documented in the medical chart. [] Measure #47: Advance care plan or surrogate decision maker documented in the medical record. [x] Measure #130 The provider has documented, updated, or reviewed the patients current medication list and has documented it in the patients note. [x] Measure #374 (All): Send report to referring provider. [] Measure #407(Sepsis due to MSSA bacteremia): Age 18+ Patient treated with a beta-lactam antibiotic (Nafcillin, Oxacillin or Cefazolin) as definitive therapy. MEDICAL COMPLEXITYHigh complexity medical decision making (need 2/3 categories)Problem - need 4 points [x]Acute/new problem with new plan for workup (4 points, 1 max) [] Acute/new problem without additional workup (3 points, 1 max) [] Unstable chronic problem actively being managed (2 point each, 2 max) [x] Stable chronic problem actively being managed (1 point each, 2 max) [x] Self-limited/transient process (constipation, muscle ache, etc) (1 point each, 2 max) Data - need 4 points [x] Reviewed labs/imaging studies (1 points, 2 max) [x] Independent review of imaging (EKG, xrays, etc) (2 points, 2 max) [x] Discussed case with consult/other MD/RN (2 points, 2 max) High Risk - qualify if have one of the following: [x] Severe exacerbation of acute problem, acute mental status change, IV narcotics, monitoring drug levels (vancomycin, INR, tacrolimus etc) I spent 36 minutes on this patient's case, and 20 mins was dedicated to counseling and/or care coordination. Discussed with ID, pulsreekanth, nephro, RN. Time of note may not reflect time of encounter Erich Posadas M.D. Sep 25, 2020 16:24
--- NOTE | 2020-09-25 17:21 | Surgery Progress Note ---
Surgery Progress Note Subjective Additional Comments afebile, HD stable comfortable labs improved intake okay Objective Last 24 Hour Vital Signs Date Time Temp Pulse Resp B/P (MAP) Pulse Ox O2 Delivery O2 Flow Rate FiO2 09/25/20 16:00 79 09/25/20 16:00 98.1 67 20 137/87 (104) 98 09/25/20 12:00 96.8 76 21 130/61 (84) 97 09/25/20 11:45 77 09/25/20 09:00 Room Air 09/25/20 08:21 131/71 09/25/20 08:21 61 131/71 09/25/20 08:00 81 09/25/20 08:00 98.1 61 20 131/71 (91) 98 09/25/20 04:00 93 09/25/20 04:00 97.0 99 18 108/74 (85) 99 09/25/20 00:00 99 09/25/20 00:00 96.6 101 20 103/70 (81) 98 09/24/20 21:00 Room Air 09/24/20 20:00 97.2 66 20 125/81 (96) 94 09/24/20 20:00 108 09/24/20 18:57 72 18 128/80 97 09/24/20 18:27 87 18 130/72 96 I&O Intake and Output 09/24/20 09/25/20 19:00 07:00 Output Total 1200 ml 400 ml Balance -1200 ml -400 ml Output Urine Total 1200 ml 400 ml # Voids 3 Cardiovascular: RSR Respiratory: clear Abdomen: soft, non-tender, present bowel sounds Extremities: no edema, no tenderness, no cyanosis Laboratory Tests Test 09/25/20 06:08 Sodium Level 140 MMOL/L (136-145) Potassium Level 3.8 MMOL/L (3.5-5.1) Chloride Level 105 MMOL/L (98-107) Carbon Dioxide Level 27 MMOL/L (21-32) Anion Gap 8 mmol/L (5-15) Blood Urea Nitrogen 18 mg/dL (7-18) Creatinine 0.9 MG/DL (0.55-1.30) Estimat Glomerular Filtration Rate > 60 mL/min (>60) Glucose Level 94 MG/DL (74-106) Calcium Level 8.9 MG/DL (8.5-10.1) Phosphorus Level 4.1 MG/DL (2.5-4.9) Magnesium Level 2.3 MG/DL (1.8-2.4) Plan Problems: (1) Failure to thrive (2) Malnutrition (3) Chest pain Assessment & Plan: unable to do CTA r/o dissection unlikely given clinical status and exam plain film noted cont bp will monitor Aorta and branches: The thoracic aorta is normal in caliber. No evidence of dissection or aneurysm demonstrated. Normal caliber and branching anatomy of the great neck vessels. No evidence of abdominal aortic aneurysm or dissection. The abdominal visceral vessels are patent and nonstenotic. Patent and nonstenotic bilateral common, external, and proximal internal iliac arteries are the exam protocol was not tailored for evaluation of pulmonary emboli. However, the pulmonary arteries are well opacified, and there are no findings to suggest acute pulmonary embolus demonstrated. Chest: Small focal areas of atelectasis and consolidation are seen in the posterior inferior left upper lobe. More hazy areas of opacity are also seen in the posterior left upper lobe. More extensive consolidation, atelectasis, as well as small irregular nodular opacities are seen in the left lower lobe. Nodular opacities as well as areas of infiltrate are seen in the left upper lobe. Near the base of the right upper lobe, there is suggestion of some tree-in-bud type opacities. The the right middle lobe is completely ectatic. Bronchiectatic air bronchograms within the collapsed right middle lobe suggests that this is due to chronic scarring with cicatrization. Fairly extensive micronodular opacities as well as more patchy opacities and larger nodular opacities are seen throughout the right lower lobe. A large calcified granuloma is seen in the inferior right lower lobe. There is trace pleural fluid on the right. Abdomen pelvis: The liver demonstrates multiple somewhat ill-defined low-attenuation lesions which are not clearly cystic in the right lobe, measuring up to 1.7 cm in diameter. The gallbladder is absent, presumed surgically removed. There is dilatation of the extrahepatic bile ducts, common bile duct measuring up to 9 mm in diameter. There is also ectasia of the pancreatic duct. The pancreas is otherwise unremarkable. The spleen, adrenals are unremarkable. The kidneys demonstrate bilateral cysts. The uterus and adnexal structures are unremarkable. The bladder is empty, contains a Berrios catheter. Lateral to the upper pole of the right kidney and posterior to the right hepatic lobe, there is an unusual soft tissue opacity that measures 2 cm in diameter, which appears to be contiguous with a soft tissue opacity extending through the rib musculature to the skin surface. There is also a slight focal irregularity of the adjacent 10th rib. The appendix is normal. Moderate retained stool is seen throughout the colon, particularly in the ascending colon. There are colonic diverticula. No evidence of diverticulitis. No small bowel distention. No free or loculated intraperitoneal gas or fluid is evident. The bones are unremarkable except for mild degenerative spondylosis changes. IMPRESSION: No evidence of acute aortic dissection or other acute vascular pathology Extensive bilateral pulmonary parenchymal disease, with combination of atelectasis, patchy consolidative opacities, nodular opacities, and tree-in-bud opacities. Appearance is nonspecific but likely reflects active inflammatory disease. There may be a significant chronic component as well. 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 Possibilities include complicated cysts, hemangiomas, neoplasm. Consider liver specific CT or MRI for better characterization Absent gallbladder. Dilated extrahepatic bile ducts without evidence of sumit nstream obstructive lesion, likely related to age and postcholecystectomy state. Correlate with liver function tests, consider MRCP for better characterization if clinically indicated Mildly ectatic pancreatic duct, significance uncertain Unusual soft tissue opacity lateral to the upper pole right kidney. Significance uncertain, but by appearance may represent a old surgical drain tract to correlate with clinical history Colonic diverticulosis. No evidence of diverticulitis Retained colonic stool Berrios catheter, degenerative spondylosis incidentally noted (4) Pneumonia (5) Failure to thrive in adult Assessment & Plan: bmi 16 alb low high risk for malnutrition fairly bedbound overall needs nutritional optimization machine room engineer eval DAILY ESTIMATED NEEDS: Needs based on Cardiac, pulmonary 37.3kg 30-35 kcals/kg 0613-2315 total kcals 1-1.5 g protein/kg 37-56 g total protein 25-35ml/kcal mL/kg 933-1306 total fluid mLs NUTRITION DIAGNOSIS: Altered nutrition related lab values r/t clinical status as evidenced by low K(2.7->wnl), low phos(2.3), low mag(1.7). CURRENT DIET: Regular ms finely chopped PO DIET RECOMMENDATIONS--->>> Maintain REGULAR DIET/ Texture per MAKING LINE WORKER ADDITIONAL RECOMMENDATIONS: 1) Add Ensure Enlive BID 2) Obtain a calibrated bed scale wts 3) Replete lytes-> low phos, mg 4) MAKING LINE WORKER eval for appropriate texture Shadi Subramanian Sep 25, 2020 17:21
--- NOTE | 2020-09-25 17:40 | NUR ---
NURSE NOTES: Pt pulled Mills catheter out, Dr Haley is aware, he ordered to follow up with bladder scan and not to put mills catheter back in. Bladder scan performed only 78ml of urine in bladder.
[2020-09-25] MEDS: LORazepam Inj 2mg/ml 1ml IV PRN (18:04)
--- NOTE | 2020-09-25 19:38 | NUR ---
NURSE HAND-OFF REPORT: Important Events on Shift:Pt very restless, pulled mills catheter out, Dr Haley is aware. Pt continues on restrains. Patient Status: Stable Diet: Regular Pending Orders: Pending Results/Labs: Pending MD notification: Latest Vital Signs: Temperature 98.1 , Pulse 79 , B/P 137 /87 , Respiratory Rate 20 , O2 SAT 98 , Room Air, O2 Flow Rate . Vital Sign Comment: Stable EKG Rhythm: Sinus Rhythm Rhythm change?: N MD Notified?: - MD Response: Latest Collado Fall Score: 60 Fall Risk: High Risk Safety Measures: Call light Within Reach, Bed Alarm Zone 1, Side Rails Side Rails x3, Bed position Low and Locked. Fall Precautions: Yellow Socks Yellow Gown Patient Fall Education Report given to Marissa/VIRGILIO.
--- NOTE | 2020-09-25 19:40 | NUR ---
NURSE NOTES: Report received from VIRGILIO Alvarado. Patient is asleep in stable condition. oven tender bagels is in place, shows sinus rhythm with no chest pain reported. On room air, sating 94-95%. IV site is on left upper arm g-20 saline locked that is patent and intact. Patient has bilateral soft wrist restraints, assessment will be done every 2 hours. Safety measures are in place, bed in lowest and locked position, side rails up x 2, call light button and bedside table within reach, instructed to call for any assistance needed. Will continue plan of care.
[2020-09-25 20:00] VITALS: BP 117/79
[2020-09-25] MEDS: TraZODone 50mg tab ORAL SCH (20:37)
[2020-09-26] VITALS: BP 106/65
[2020-09-26] MEDS: cefTRIAXone 1 GM in D5W 55 ML IVPB SCH (00:18)
[2020-09-26] MEDS: Azithromycin 500 MG in D5W 275 ML IV SCH (01:39)
[2020-09-26 04:00] VITALS: BP 110/68
[2020-09-26] MEDS: metroNIDAZOLE 500mg tab ORAL SCH ×3 (05:32→21:52)
--- NOTE | 2020-09-26 07:17 | NUR ---
NURSE HAND-OFF REPORT: Important Events on Shift: Patient has been resting well comfortably, but able to get out on bed even the restraints on. Patient Status: Patient is awake on bed in stable condition. Plan of care endorsed. Diet: Regular diet, crush medications Pending Orders: Chest xray Pending Results/Labs:AM lab result Pending MD notification:none Latest Vital Signs: Temperature 97.7 , Pulse 105 , B/P 110 /68 , Respiratory Rate 19 , O2 SAT 96 , Room Air, O2 Flow Rate . Vital Sign Comment: none EKG Rhythm: Sinus Tachycardia Rhythm change?: N MD Notified?: - MD Response: Latest Collado Fall Score: 60 Fall Risk: High Risk Safety Measures: Call light Within Reach, Bed Alarm Zone 2, Side Rails Side Rails x3, Bed position Low and Locked. Fall Precautions: Yellow Socks Yellow Gown Patient Fall Education Report given to VIRGILIO Arenas.
[2020-09-26 07:19] LABS: ALANINE AMINOTRANSFERASE 23 U/L (12-78); ALBUMIN 2.7 G/DL (3.4-5.0); ALBUMIN/GLOBULIN RATIO 0.5 (1.0-2.7); ALKALINE PHOSPHATASE 72 U/L (46-116); ANION GAP 5 mmol/L (5-15); ASPARTATE AMINO TRANSFERASE 35 U/L (15-37); BILIRUBIN,TOTAL 0.4 MG/DL (0.2-1.0); BLOOD UREA NITROGEN 29 mg/dL (7-18); CARBON DIOXIDE 30 MMOL/L (21-32); CHLORIDE 105 MMOL/L (98-107); CREATININE 0.9 MG/DL (0.55-1.30); POTASSIUM 4.2 MMOL/L (3.5-5.1); SODIUM 140 MMOL/L (136-145)
[2020-09-26 08:00] VITALS: BP 130/75
[2020-09-26 08:29] LABS: HEMATOCRIT 33.7 % (37.0-47.0); HEMOGLOBIN 11.3 G/DL (12.0-16.0); MEAN CORPUSCULAR VOLUME 85 FL (80-99); PLATELET COUNT 337 K/UL (150-450); RED BLOOD COUNT 3.97 M/UL (4.20-5.40); RED CELL DISTRIBUTION WIDTH 13.4 % (11.6-14.8); WHITE BLOOD COUNT 12.4 K/UL (4.8-10.8)
--- NOTE | 2020-09-26 08:37 | NUR ---
NURSE NOTES: Received patient report from VIRGILIO Peters. patient shows no signs of distress or pain at the time. Pateint is on room air and shows no signs of respiratory distress. IV is intact and patent. There are no signs of erythema, infiltration, or bleeding. Bed is in the lowest position, call light is within reach, side rails up x3. Patient is on bilateral soft wrist restraints.
--- NOTE | 2020-09-26 08:42 | NUR ---
RD ASSESSMENT & RECOMMENDATIONS SEE CARE ACTIVITY FOR COMPLETE ASSESSMENT DAILY ESTIMATED NEEDS: Needs based on Cardiac, pulmonary 32.3kg 35-40 kcals/kg 9969-1484 total kcals 1-1.5 g protein/kg 32-49 g total protein 25-35ml/kcal mL/kg 808-1131 total fluid mLs NUTRITION DIAGNOSIS: Altered nutrition related lab values r/t clinical status as evidenced by low K(2.7->wnl), low phos(2.3), low mag(1.7). CURRENT DIET: Regular ms finely chopped PO DIET RECOMMENDATIONS: Maintain REGULAR DIET/ Texture per MASCARA MOLDER ENTERAL NUTRITION RECOMMENDATIONS: CONSULT RD FOR ON ORAL FEEDS IF PART OF POC ADDITIONAL RECOMMENDATIONS: 1) Add Ensure Enlive TID 2) Obtain a calibrated bed scale wts 3) Replete lytes-> low phos, mg 4) MASCARA MOLDER eval for appropriate texture 5) *pt on multiple psych meds, poor alertness, rec non oral feeds*
[2020-09-26] MEDS: Memantine 10mg tab ORAL SCH ×2 (09:06→21:52)
[2020-09-26] MEDS: Benazepril 10mg tab ORAL SCH (09:06)
[2020-09-26] MEDS: Heparin 5000 units/ml inj SUBQ SCH ×2 (09:08→21:58)
--- NOTE | 2020-09-26 10:04 | NUR ---
RADIOLOGY DEPT., CHEST X-RAY DONE.-P.DYE
--- NOTE | 2020-09-26 10:46 | Diagnostic Imaging Report ---
Indication: Shortness of breath Technique: One view of the chest Comparison: 09/24/2020 Findings: Bilateral reticular and patchy infiltrates are unchanged. Normal heart size. The pleural spaces are clear. Impression: Unchanged, over 2 days, findings as above.
[2020-09-26 11:58] VITALS: BP 122/80
--- NOTE | 2020-09-26 13:02 | Pulmonology Progress Note ---
Subjective ROS Limited/Unobtainable: Yes Interval Events: None new reported Constitutional: Reports: fatigue; Denies: fever HEENT: Repors: no symptoms Respiratory: Reports: no symptoms Cardiovascular: Reports: no symptoms Gastrointestinal/Abdominal: Denies: nausea Psychiatric: Denies: depression Skin: Denies: rash Musculoskeletal: Denies: pain Allergies: Coded Allergies: No Known Allergies (Unverified , 09/21/20) Objective Last 24 Hour Vital Signs Date Time Temp Pulse Resp B/P (MAP) Pulse Ox O2 Delivery O2 Flow Rate FiO2 09/26/20 11:58 98.6 93 17 122/80 (94) 98 09/26/20 09:07 88 130/75 09/26/20 09:06 130/75 09/26/20 09:00 Room Air 09/26/20 08:00 97 09/26/20 08:00 97.7 88 20 130/75 (93) 97 09/26/20 04:00 105 09/26/20 04:00 97.7 101 19 110/68 (82) 96 09/26/20 00:00 97.5 97 18 106/65 (79) 96 09/26/20 00:00 108 09/25/20 21:00 Room Air 09/25/20 20:00 97.3 112 20 117/79 (92) 97 09/25/20 20:00 84 09/25/20 18:34 79 20 137/87 98 09/25/20 18:04 79 20 137/87 98 09/25/20 16:00 79 09/25/20 16:00 98.1 67 20 137/87 (104) 98 Intake and Output 09/25/20 09/26/20 19:00 07:00 Intake Total 120 ml 240 ml Output Total 1200 ml Balance -1080 ml 240 ml Intake Oral 120 ml 240 ml Output Urine Total 1200 ml # Voids 3 # Bowel Movements 1 Objective 09/26 remains on RA 09/25 no change 09/24 saturating well on RA; NAD General Appearance: no acute distress, cachetic HEENT: normocephalic Respiratory: chest wall non-tender, lungs clear Cardiovascular: normal peripheral pulses, normal rate Abdomen: normal bowel sounds Laboratory Tests 09/26/20 06:40: White Blood Count 12.4H, Red Blood Count 3.97L, Hemoglobin 11.3L, Hematocrit 33.7L, Mean Corpuscular Volume 85, Mean Corpuscular Hemoglobin 28.6, Mean Lisa uscular Hemoglobin Concent 33.7, Red Cell Distribution Width 13.4, Platelet Count 337, Mean Platelet Volume 8.0, Neutrophils (%) (Auto) , Lymphocytes (%) (Auto) , Monocytes (%) (Auto) , Eosinophils (%) (Auto) , Basophils (%) (Auto) , Differential Total Cells Counted 100, Neutrophils % (Manual) 90H, Lymphocytes % (Manual) 7L, Monocytes % (Manual) 2, Eosinophils % (Manual) 1, Basophils % (Manual) 0, Band Neutrophils 0, Platelet Estimate Adequate, Platelet Morphology Normal, Hypochromasia 1+, Sodium Level 140, Potassium Level 4.2, Chloride Level 105, Carbon Dioxide Level 30, Anion Gap 5, Blood Urea Nitrogen 29H, Creatinine 0.9, Estimat Glomerular Filtration Rate > 60, Glucose Level 140H, Calcium Level 9.0, Total Bilirubin 0.4, Aspartate Amino Transf (AST/SGOT) 35, Alanine Aminotransferase (ALT/SGPT) 23, Alkaline Phosphatase 72, Total Protein 7.8, Albumin 2.7L, Globulin 5.1, Albumin/Globulin Ratio 0.5L Current Medications Medications (Trade) Dose Ordered Sig/Martin Route PRN Reason Start Time Stop Time Status Last Admin Dose Admin Amlodipine Besylate (Norvasc) 10 mg DAILY ORAL 09/23/20 09:00 10/23/20 08:59 09/26/20 09:07 Azithromycin 500 mg/Dextrose 275 ml @ 275 mls/hr Q24HRS IV 09/25/20 01:00 09/30/20 23:59 09/26/20 01:39 Benazepril HCl (Lotensin) 40 mg DAILY ORAL 09/23/20 09:00 10/23/20 08:59 09/26/20 09:06 Ceftriaxone Sodium 1 gm/ Dextrose 55 ml @ 110 mls/hr Q24HRS IVPB 09/23/20 00:00 09/30/20 00:00 09/26/20 00:18 Heparin Sodium (Porcine) (Heparin 5000 units/ml) 5,000 units EVERY 12 HOURS SUBQ 09/22/20 21:30 11/06/20 21:29 09/26/20 09:08 Lorazepam (Ativan 2mg/ml 1ml) 0.5 mg Q6H PRN IV Agitation 09/22/20 21:15 09/29/20 21:14 09/25/20 18:04 Memantine (Namenda) 10 mg Q12HR ORAL 09/23/20 09:00 10/23/20 08:59 09/26/20 09:06 Metronidazole (Flagyl) 500 mg EVERY 8 HOURS ORAL 09/22/20 22:00 09/29/20 21:59 09/26/20 05:32 Mirtazapine (Remeron) 7.5 mg BEDTIME ORAL 09/23/20 21:00 12/22/20 20:59 09/25/20 20:39 Quetiapine Fumarate (SEROqueL) 50 mg QHS ORAL 09/22/20 21:30 11/06/20 21:29 09/25/20 20:37 Trazodone HCl (Desyrel) 50 mg BEDTIME ORAL 09/22/20 21:30 10/22/20 21:29 09/25/20 20:37 Assessment/Plan Assessment/Plan 1. Pneumonia - remains saturating well on room air. - Provide supplemental oxygen as needed. - On azithromycin, Rocephin. - on Flagyl - CXR 09/24 shows mildly improved findings - CXR 09/26 Bilateral reticular and patchy infiltrates are unchanged. 2. Chest pain - CT angio C/A/P- neg for aortic dissection; ct chest shows extensive infiltrates; possibly chronic 3. Hypertension - BP management per nephro We will follow. DC planning per PMD The care for this patient was discussed with my supervising physician. Time spent for this case was approximately 31 minutes. Chiki Koch Sep 26, 2020 13:02 Casimiro Miarnda MD Sep 26, 2020 13:50
--- NOTE | 2020-09-26 14:02 | Surgery Progress Note ---
Surgery Progress Note Subjective Symptoms: improved, tolerating diet, passing flatus, BM Objective Last 24 Hour Vital Signs Date Time Temp Pulse Resp B/P (MAP) Pulse Ox O2 Delivery O2 Flow Rate FiO2 09/26/20 11:58 98.6 93 17 122/80 (94) 98 09/26/20 09:07 88 130/75 09/26/20 09:06 130/75 09/26/20 09:00 Room Air 09/26/20 08:00 97 09/26/20 08:00 97.7 88 20 130/75 (93) 97 09/26/20 04:00 105 09/26/20 04:00 97.7 101 19 110/68 (82) 96 09/26/20 00:00 97.5 97 18 106/65 (79) 96 09/26/20 00:00 108 09/25/20 21:00 Room Air 09/25/20 20:00 97.3 112 20 117/79 (92) 97 09/25/20 20:00 84 09/25/20 18:34 79 20 137/87 98 09/25/20 18:04 79 20 137/87 98 09/25/20 16:00 79 09/25/20 16:00 98.1 67 20 137/87 (104) 98 I&O Intake and Output 09/25/20 09/26/20 19:00 07:00 Intake Total 120 ml 240 ml Output Total 1200 ml Balance -1080 ml 240 ml Intake Oral 120 ml 240 ml Output Urine Total 1200 ml # Voids 3 # Bowel Movements 1 Dressing: saturated Cardiovascular: RSR Respiratory: decreased breath sounds Abdomen: soft, non-tender, present bowel sounds, non-distended Extremities: no tenderness, no cyanosis Laboratory Tests Test 09/26/20 06:40 White Blood Count 12.4 K/UL (4.8-10.8) H Red Blood Count 3.97 M/UL (4.20-5.40) L Hemoglobin 11.3 G/DL (12.0-16.0) L Hematocrit 33.7 % (37.0-47.0) L Mean Corpuscular Volume 85 FL (80-99) Mean Corpuscular Hemoglobin 28.6 PG (27.0-31.0) Mean Corpuscular Hemoglobin Concent 33.7 G/DL (32.0-36.0) Red Cell Distribution Width 13.4 % (11.6-14.8) Platelet Count 337 K/UL (150-450) Mean Platelet Volume 8.0 FL (6.5-10.1) Neutrophils (%) (Auto) % (45.0-75.0) Lymphocytes (%) (Auto) % (20.0-45.0) Monocytes (%) (Auto) % (1.0-10.0) Eosinophils (%) (Auto) % (0.0-3.0) Basophils (%) (Auto) % (0.0-2.0) Differential Total Cells Counted 100 Neutrophils % (Manual) 90 % (45-75) H Lymphocytes % (Manual) 7 % (20-45) L Monocytes % (Manual) 2 % (1-10) Eosinophils % (Manual) 1 % (0-3) Basophils % (Manual) 0 % (0-2) Band Neutrophils 0 % (0-8) Platelet Estimate Adequate Platelet Morphology Normal Hypochromasia 1+ Sodium Level 140 MMOL/L (136-145) Potassium Level 4.2 MMOL/L (3.5-5.1) Chloride Level 105 MMOL/L (98-107) Carbon Dioxide Level 30 MMOL/L (21-32) Anion Gap 5 mmol/L (5-15) Blood Urea Nitrogen 29 mg/dL (7-18) H Creatinine 0.9 MG/DL (0.55-1.30) Estimat Glomerular Filtration Rate > 60 mL/min (>60) Glucose Level 140 MG/DL (74-106) H Calcium Level 9.0 MG/DL (8.5-10.1) Total Bilirubin 0.4 MG/DL (0.2-1.0) Aspartate Amino Transf (AST/SGOT) 35 U/L (15-37) Alanine Aminotransferase (ALT/SGPT) 23 U/L (12-78) Alkaline Phosphatase 72 U/L (46-116) Total Protein 7.8 G/DL (6.4-8.2) Albumin 2.7 G/DL (3.4-5.0) L Globulin 5.1 g/dL Albumin/Globulin Ratio 0.5 (1.0-2.7) L Plan Problems: (1) Failure to thrive (2) Malnutrition (3) Chest pain Assessment & Plan: unable to do CTA r/o dissection unlikely given clinical status and exam plain film noted cont bp will monitor Aorta and branches: The thoracic aorta is normal in caliber. No evidence of dissection or aneurysm demonstrated. Normal caliber and branching anatomy of the great neck vessels. No evidence of abdominal aortic aneurysm or dissection. The abdominal visceral vessels are patent and nonstenotic. Patent and nonstenotic bilateral common, external, and proximal internal iliac arteries are the exam protocol was not tailored for evaluation of pulmonary emboli. However, the pulmonary arteries are well opacified, and there are no findings to suggest acute pulmonary embolus demonstrated. Chest: Small focal areas of atelectasis and consolidation are seen in the posterior inferior left upper lobe. More hazy areas of opacity are also seen in the posterior left upper lobe. More extensive consolidation, atelectasis, as well as small irregular nodular opacities are seen in the left lower lobe. Nodular opacities as well as areas of infiltrate are seen in the left upper lobe. Near the base of the right upper lobe, there is suggestion of some tree-in-bud type opacities. The the right middle lobe is completely ectatic. Bronchiectatic air bronchograms within the collapsed right middle lobe suggests that this is due to chronic scarring with cicatrization. Fairly extensive micronodular opacities as well as more patchy opacities and larger nodular opacities are seen throughout the right lower lobe. A large calcified granuloma is seen in the inferior right lower lobe. There is trace pleural fluid on the right. Abdomen pelvis: The liver demonstrates multiple somewhat ill-defined low-attenuation lesions which are not clearly cystic in the right lobe, measuring up to 1.7 cm in diameter. The gallbladder is absent, presumed surgically removed. There is dilatation of the extrahepatic bile ducts, common bile duct measuring up to 9 mm in diameter. There is also ectasia of the pancreatic duct. The pancreas is otherwise unremarkable. The spleen, adrenals are unremarkable. The kidneys demonstrate bilateral cysts. The uterus and adnexal structures are unremarkable. The bladder is empty, contains a Berrios catheter. Lateral to the upper pole of the right kidney and posterior to the right hepatic lobe, there is an unusual soft tissue opacity that measures 2 cm in diameter, which appears to be contiguous with a soft tissue opacity extending through the rib musculature to the skin surface. There is also a slight focal irregularity of the adjacent 10th rib. The appendix is normal. Moderate retained stool is seen throughout the colon, particularly in the ascending colon. There are colonic diverticula. No evidence of diverticulitis. No small bowel distention. No free or loculated intraperitoneal gas or fluid is evident. The bones are unremarkable except for mild degenerative spondylosis changes. IMPRESSION: No evidence of acute aortic dissection or other acute vascular pathology Extensive bilateral pulmonary parenchymal disease, with combination of atelectasis, patchy consolidative opacities, nodular opacities, and tree-in-bud opacities. Appearance is nonspecific but likely reflects active inflammatory disease. There may be a significant chronic component as well. 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 Possibilities include complicated cysts, hemangiomas, neoplasm. Consider liver specific CT or MRI for better characterization Absent gallbladder. Dilated extrahepatic bile ducts without evidence of downstream obstructive lesion, likely related to age and postcholecystectomy state. Dahiana elate with liver function tests, consider MRCP for better characterization if clinically indicated Mildly ectatic pancreatic duct, significance uncertain Unusual soft tissue opacity lateral to the upper pole right kidney. Significance uncertain, but by appearance may represent a old surgical drain tract to correlate with clinical history Colonic diverticulosis. No evidence of diverticulitis Retained colonic stool Berrios catheter, degenerative spondylosis incidentally noted (4) Pneumonia (5) Failure to thrive in adult Assessment & Plan: bmi 16 alb low high risk for malnutrition fairly bedbound overall needs nutritional optimization allergy nurse eval DAILY ESTIMATED NEEDS: Needs based on Cardiac, pulmonary 37.3kg 30-35 kcals/kg 5604-1872 total kcals 1-1.5 g protein/kg 37-56 g total protein 25-35ml/kcal mL/kg [id number] total fluid mLs NUTRITION DIAGNOSIS: Altered nutrition related lab values r/t clinical status as evidenced by low K(2.7->wnl), low phos(2.3), low mag(1.7). CURRENT DIET: Regular ms finely chopped PO DIET RECOMMENDATIONS--->>> Maintain REGULAR DIET/ Texture per [employer] ADDITIONAL RECOMMENDATIONS: 1) Add Ensure Enlive BID 2) Obtain a calibrated bed scale wts 3) Replete lytes-> low refugio, mg 4) [employer] eval for appropriate texture Shadi Subramanian Sep 26, 2020 14:02
--- NOTE | 2020-09-26 15:02 | General Progress Note ---
Subjective Date patient seen: Sep 26, 2020 ROS Limited/Unobtainable: Yes Allergies: Coded Allergies: No Known Allergies (Unverified , 09/21/20) Subjective No acute events overnight per nursing. No significant change in patient condition. Patient remains altered, sleepy today, though moves spontaneously when called by name. Further subjective history unable to be obtained due to ALOC. Unable to obtain further ROS due to ALOC Objective Last 24 Hour Vital Signs Date Time Temp Pulse Resp B/P (MAP) Pulse Ox O2 Delivery O2 Flow Rate FiO2 09/26/20 11:58 98.6 93 17 122/80 (94) 98 09/26/20 09:07 88 130/75 09/26/20 09:06 130/75 09/26/20 09:00 Room Air 09/26/20 08:00 97 09/26/20 08:00 97.7 88 20 130/75 (93) 97 09/26/20 04:00 105 09/26/20 04:00 97.7 101 19 110/68 (82) 96 09/26/20 00:00 97.5 97 18 106/65 (79) 96 09/26/20 00:00 108 09/25/20 21:00 Room Air 09/25/20 20:00 97.3 112 20 117/79 (92) 97 09/25/20 20:00 84 09/25/20 18:34 79 20 137/87 98 09/25/20 18:04 79 20 137/87 98 09/25/20 16:00 79 09/25/20 16:00 98.1 67 20 137/87 (104) 98 Intake and Output 09/25/20 09/26/20 19:00 07:00 Intake Total 120 ml 240 ml Output Total 1200 ml Balance -1080 ml 240 ml Intake Oral 120 ml 240 ml Output Urine Total 1200 ml # Voids 3 # Bowel Movements 1 Laboratory Tests 09/26/20 06:40: White Blood Count 12.4H, Red Blood Count 3.97L, Hemoglobin 11.3L, Hematocrit 33.7L, Mean Corpuscular Volume 85, Mean Corpuscular Hemoglobin 28.6, Mean Corpuscular Hemoglobin Concent 33.7, Red Cell Distribution Width 13.4, Platelet Count 337, Mean Platelet Volume 8.0, Neutrophils (%) (Auto) , Lymphocytes (%) (Auto) , Monocytes (%) (Auto) , Eosinophils (%) (Auto) , Basophils (%) (Auto) , Differential Total Cells Counted 100, Neutrophils % (Manual) 90H, Lymphocytes % (Manual) 7L, Monocytes % (Manual) 2, Eosinophils % (Manual) 1, Basophils % (Manual) 0, Band Neutrophils 0, Platelet Estimate Adequate, Platelet Morphology Normal, Hypochromasia 1+, Sodium Level 140, Potassium Level 4.2, Chloride Level 105, Carbon Dioxide Level 30, Anion Gap 5, Blood Urea Nitrogen 29H, Creatinine 0.9, Estimat Glomerular Filtration Rate > 60, Glucose Level 140H, Calcium Level 9.0, Total Bilirubin 0.4, Aspartate Amino Transf (AST/SGOT) 35, Alanine Aminotransferase (ALT/SGPT) 23, Alkaline Phosphatase 72, Total Protein 7.8, Albumin 2.7L, Globulin 5.1, Albumin/Globulin Ratio 0.5L Height (Feet): 5 Height (Inches): 0.00 Weight (Pounds): 69 Objective General: WDWN female in NAD, resting comfortably in bed, sleeping, reacts to name being called HEENT: Normocephalic cephalic atraumatic, pupils equal round reactive to light and accommodation, nares patent and no symmetrical, no tonsillar exudates, mucous membranes moist + poor dentition CV: Regular rate regular rhythm, no murmurs, rubs, or gallops Pulm: Lungs clear to auscultation bilaterally. No wheezes, rhonchi, or rales GI: Soft, nontender, nondistended, bowel sounds present Neuro: CN 2-12 intact bilaterally, no focal signs. Ext: No lower extremity edema bilaterally Skin: no rashes lesions or ulcers Msk: Joints symmetrical in upper extremity and lower extremity bilaterally, no joint swelling. Lymph: No lymphadenopathy in upper extremity and lower extremity 09/24/20 CT angio C/A/P No evidence of acute aortic dissection or other acute vascular pathology Extensive bilateral pulmonary parenchymal disease, with combination of atelectasis, patchy consolidative opacities, nodular opacities, and tree-in-bud opacities. Appearance is nonspecific but likely reflects active inflammatory disease. There may be a significant chronic component as well. 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 Possibilities include complicated cysts, hemangiomas, neoplasm. Consider liver specific CT or MRI for better characterization Absent gallbladder. Dilated extrahepatic bile ducts without evidence of downstream obstructive lesion, likely related to age and postcholecystectomy state. Correlate with liver function tests, consider MRCP for better characterization if clinically indicated Mildly ectatic pancreatic duct, significance uncertain Unusual soft tissue opacity lateral to the upper pole right kidney. Significance uncertain, but by appearance may represent a old surgical drain tract to correlate with clinical history Colonic diverticulosis. No evidence of diverticulitis Retained colonic stool Berrios catheter, degenerative spondylosis incidentally noted Assessment/Plan Assessment/Plan: This is a 80-year-old female with a past medical history of hypertension, hyperlipidemia and dementia presenting with chest pain cough and suspected bilat eral pneumonia. #Bilateral pneumonia, CAP? Aspiration? #Chest pain, suspect due to above - CT Angio C/A/P without dissection #Leukocytosis secondary to above, now improving #Elevated LDH #elevated d-dimer #Anemia - improving Hgb today #hyperlipidemia > EKG reviewed. QTC 425 -Admit to telemetry -CT Angio C/A/P negative for dissection -Follow cultures - NTD -COVID negative -Abx per ID - Transition to PO antibiotics upon discharge -Rocephin (09/22 - ) -Azithromycin (09/22 - ) -Flagyl (09/22 - ) -Appreciate ID consult: Dr. Denny -Appreciate Pulm consult: Dr. Miranda -Consider Cardiology consult -troponin negative -2d echo -IV fluids and BP management per nephro #hypokalemia -Replete PRN -Nephro consulted #dementia #acute metabolic encephalopathy 2/2 above -treat as above FENPPX DVTPPX: per primary. HSQ GI PPX: none at this time Fluids: per nephro Diet: renal Lines: PIV PT/OT: pending Code status: Full per policy Dispo: pending resolution of above Reason for Continued Hospitalization: Pneumonia, IV antibiotics MIPS ([employer]it-based Incentive Payment System) Applicable CPT: 24842, 46320 CHECK ALL THAT ARE MET: [] Measure #5 (CHF): All ages. Prescribe GABE/ARB upon discharge for patients with left ventricular systolic dysfunction. If not, the reason is clearly documented in the medical chart [] Measure #8 (CHF): All ages. Prescribe a beta frank upon discharge for patients with left ventricular systolic dysfunction. If not, the reason is clearly documented in the medical chart. [] Measure #47: Advance care plan or surrogate decision maker documented in the medical record. [x] Measure #130 The provider has documented, updated, or reviewed the patients current medication list and has documented it in the patients note. [x] Measure #374 (All): Send report to referring provider. [] Measure #407(Sepsis due to MSSA bacteremia): Age 18+ Patient treated with a beta-lactam antibiotic (Nafcillin, Oxacillin or Cefazolin) as definitive therapy. MEDICAL COMPLEXITYHigh complexity medical decision making (need 2/3 categories)Problem - need 4 points [x]Acute/new problem with new plan for workup (4 points, 1 max) [] Acute/new problem without additional workup (3 points, 1 max) [] Unstable chronic problem actively being managed (2 point each, 2 max) [x] Stable chronic problem actively being managed (1 point each, 2 max) [x] Self-limited/transient process (constipation, muscle ache, etc) (1 point each, 2 max) Data - need 4 points [x] Reviewed labs/imaging studies (1 points, 2 max) [x] Independent review of imaging (EKG, xrays, etc) (2 points, 2 max) [x] Discussed case with consult/other MD/RN (2 points, 2 max) High Risk - qualify if have one of the following: [x] Severe exacerbation of acute problem, acute mental status change, IV narcotics, monitoring drug levels (vancomycin, INR, tacrolimus etc) I spent 35 minutes on this patient's case, and 20 mins was dedicated to counseli ng and/or care coordination. Discussed with RANDY, abdifatah, nephlaron, RN. Time of note may not reflect time of encounter Erich Posadas M.D. Sep 26, 2020 15:02
[2020-09-26 16:00] VITALS: BP 119/76
--- NOTE | 2020-09-26 17:08 | Nephrology Progress Note ---
Assessment/Plan Plan #Hypokalemia #Sepsis #Pneumonia #Hypoxemic respiratory failure #AMS #history of dementia - replete lytes - IVF - antibiotics - ID eval - pulm eval - neuro eval - monitor renal function time spent 65 min Subjective ROS Limited/Unobtainable: Yes Subjective potassium normal today Objective Objective Last 24 Hour Vital Signs Date Time Temp Pulse Resp B/P (MAP) Pulse Ox O2 Delivery O2 Flow Rate FiO2 09/26/20 12:00 78 09/26/20 11:58 98.6 93 17 122/80 (94) 98 09/26/20 09:07 88 130/75 09/26/20 09:06 130/75 09/26/20 09:00 Room Air 09/26/20 08:00 97 09/26/20 08:00 97.7 88 20 130/75 (93) 97 09/26/20 04:00 105 09/26/20 04:00 97.7 101 19 110/68 (82) 96 09/26/20 00:00 97.5 97 18 106/65 (79) 96 09/26/20 00:00 108 09/25/20 21:00 Room Air 09/25/20 20:00 97.3 112 20 117/79 (92) 97 09/25/20 20:00 84 09/25/20 18:34 79 20 137/87 98 09/25/20 18:04 79 20 137/87 98 l Intake and Output 09/25/20 09/26/20 19:00 07:00 Intake Total 120 ml 240 ml Output Total 1200 ml Balance -1080 ml 240 ml Intake Oral 120 ml 240 ml Output Urine Total 1200 ml # Voids 3 # Bowel Movements 1 Laboratory Tests 09/26/20 06:40: White Blood Count 12.4H, Red Blood Count 3.97L, Hemoglobin 11.3L, Hematocrit 33.7L, Mean Corpuscular Volume 85, Mean Corpuscular Hemoglobin 28.6, Mean Corpuscular Hemoglobin Concent 33.7, Red Cell Distribution Width 13.4, Platelet Count 337, Mean Platelet Volume 8.0, Neutrophils (%) (Auto) , Lymphocytes (%) (Auto) , Monocytes (%) (Auto) , Eosinophils (%) (Auto) , Basophils (%) (Auto) , Differential Total Cells Counted 100, Neutrophils % (Manual) 90H, Lymphocytes % (Manual) 7L, Monocytes % (Manual) 2, Eosinophils % (Manual) 1, Basophils % (Manual) 0, Band Neutrophils 0, Platelet Estimate Adequate, Platelet Morphology Normal, Hypochromasia 1+, Sodium Level 140, Potassium Level 4.2, Chloride Level 105, Carbon Dioxide Level 30, Anion Gap 5, Blood Urea Nitrogen 29H, Creatinine 0.9, Estimat Glomerular Filtration Rate > 60, Glucose Level 140H, Calcium Level 9.0, Total Bilirubin 0.4, Aspartate Amino Transf (AST/SGOT) 35, Alanine Aminotransferase (ALT/SGPT) 23, Alkaline Phosphatase 72, Total Protein 7.8, Albumin 2.7L, Globulin 5.1, Albumin/Globulin Ratio 0.5L Height (Feet): 5 Height (Inches): 0.00 Weight (Pounds): 69 Roseanne Haley M.D. Sep 26, 2020 17:08
--- NOTE | 2020-09-26 19:16 | NUR ---
NURSE HAND-OFF REPORT: Important Events on Shift:[Patient is still on restraints] Patient Status: [Full code] Diet: [Regular] Pending Orders: [] Pending Results/Labs:[] Pending MD notification:[] Latest Vital Signs: Temperature 97.1 , Pulse 108 , B/P 119 /76 , Respiratory Rate 18 , O2 SAT 97 , Room Air, O2 Flow Rate . Vital Sign Comment: [] EKG Rhythm: Sinus Tachycardia Rhythm change?: N MD Notified?: - MD Response: Latest Collado Fall Score: 60 Fall Risk: High Risk Safety Measures: Call light Within Reach, Bed Alarm Zone 2, Side Rails Side Rails x3, Bed position Low and Locked. Fall Precautions: Yellow Socks Yellow Gown Patient Fall Education Report given to [VIRGILIO Ann].
--- NOTE | 2020-09-26 19:37 | NUR ---
NURSE NOTES: Report received from VIRGILIO Arenas. Patient is awake on bed, alert and oriented x 0, confused. On room air and no desaturation reported. On fall and aspiration precaution, bed alarm is on, with bilateral soft wrist restraints. cardiac monitor is in place, shows sinus rhythm. IV site is on left upper arm g-20 saline locked that is patent and intact. Safety measures are in place, bed in lowest and locked position, side rails up x 2, call light button and bedside table within reach, instructed to call for any assistance needed. Will continue plan of care.
[2020-09-26 20:00] VITALS: BP 118/72
--- NOTE | 2020-09-26 20:12 | Neurology Progress Note ---
Interim History Interim History ROS Limited/Unobtainable: Yes Interim History confused, no new focal deficits Objective Physical Exam Last Vital Signs Date Time Temp Pulse Resp B/P (MAP) Pulse Ox O2 Delivery O2 Flow Rate FiO2 09/26/20 16:00 108 09/26/20 16:00 97.1 18 119/76 (90) 97 09/26/20 09:00 Room Air Laboratory Tests Test 09/26/20 06:40 White Blood Count 12.4 K/UL (4.8-10.8) H Red Blood Count 3.97 M/UL (4.20-5.40) L Hemoglobin 11.3 G/DL (12.0-16.0) L Hematocrit 33.7 % (37.0-47.0) L Mean Corpuscular Volume 85 FL (80-99) Mean Corpuscular Hemoglobin 28.6 PG (27.0-31.0) Mean Corpuscular Hemoglobin Concent 33.7 G/DL (32.0-36.0) Red Cell Distribution Width 13.4 % (11.6-14.8) Platelet Count 337 K/UL (150-450) Mean Platelet Volume 8.0 FL (6.5-10.1) Neutrophils (%) (Auto) % (45.0-75.0) Lymphocytes (%) (Auto) % (20.0-45.0) Monocytes (%) (Auto) % (1.0-10.0) Eosinophils (%) (Auto) % (0.0-3.0) Basophils (%) (Auto) % (0.0-2.0) Differential Total Cells Counted 100 Neutrophils % (Manual) 90 % (45-75) H Lymphocytes % (Manual) 7 % (20-45) L Monocytes % (Manual) 2 % (1-10) Eosinophils % (Manual) 1 % (0-3) Basophils % (Manual) 0 % (0-2) Band Neutrophils 0 % (0-8) Platelet Estimate Adequate Platelet Morphology Normal Hypochromasia 1+ Sodium Level 140 MMOL/L (136-145) Potassium Level 4.2 MMOL/L (3.5-5.1) Chloride Level 105 MMOL/L (98-107) Carbon Dioxide Level 30 MMOL/L (21-32) Anion Gap 5 mmol/L (5-15) Blood Urea Nitrogen 29 mg/dL (7-18) H Creatinine 0.9 MG/DL (0.55-1.30) Estimat Glomerular Filtration Rate > 60 mL/min (>60) Glucose Level 140 MG/DL (74-106) H Calcium Level 9.0 MG/DL (8.5-10.1) Total Bilirubin 0.4 MG/DL (0.2-1.0) Aspartate Amino Transf (AST/SGOT) 35 U/L (15-37) Alanine Aminotransferase (ALT/SGPT) 23 U/L (12-78) Alkaline Phosphatase 72 U/L (46-116) Total Protein 7.8 G/DL (6.4-8.2) Albumin 2.7 G/DL (3.4-5.0) L Globulin 5.1 g/dL Albumin/Globulin Ratio 0.5 (1.0-2.7) L Impression/Recommendations Problems: (1) Chest pain (2) Pneumonia (3) Failure to thrive (4) Malnutrition (5) Failure to thrive in adult Diagnostic Impression acute encephalopathy, likely metabolic given sepsis and pneumonia covid ro dementia pt does not have capacity medical support delirium precautions Fox Payne MD Sep 26, 2020 20:12
[2020-09-26] MEDS: TraZODone 50mg tab ORAL SCH (21:52)
[2020-09-27] VITALS: BP 112/66
[2020-09-27] MEDS: Azithromycin 500 MG in D5W 275 ML IV SCH (00:57)
[2020-09-27 04:00] VITALS: BP 133/75
[2020-09-27] MEDS: metroNIDAZOLE 500mg tab ORAL SCH ×3 (06:02→21:31)
--- NOTE | 2020-09-27 07:14 | NUR ---
NURSE NOTES: Pt received from Kinjal Manuel RN. Pt in bed sleeping, bed low locked. call light within reach. Restrains in place. pulses present and palpable. No redness or swelling noted.
--- NOTE | 2020-09-27 07:15 | NUR ---
NURSE HAND-OFF REPORT: Important Events on Shift: Patient has been resting well the whole shift. no desaturation nor complaints made. Patient Status: Patient is awake on bed in stable condition. Plan of care endorsed. Diet: Regualr diet, crush medications with apple sauce Pending Orders: none Pending Results/Labs:none Pending MD notification:none Latest Vital Signs: Temperature 96.6 , Pulse 84 , B/P 133 /75 , Respiratory Rate 20 , O2 SAT 99 , Room Air, O2 Flow Rate . Vital Sign Comment: stable EKG Rhythm: Sinus Rhythm Rhythm change?: N MD Notified?: - MD Response: Latest Collado Fall Score: 60 Fall Risk: High Risk Safety Measures: Call light Within Reach, Bed Alarm Zone 2, Side Rails Side Rails x3, Bed position Low and Locked. Fall Precautions: Yellow Socks Yellow Gown Patient Fall Education Report given to VIRGILIO Martínez.
[2020-09-27 08:00] VITALS: BP 134/87
--- NOTE | 2020-09-27 08:18 | NUR ---
RADIOLOGY NOTE: PORTABLE CHEST X-RAY COMPLETED AT 0800 HRS. FA
--- NOTE | 2020-09-27 09:11 | Diagnostic Imaging Report ---
EXAM: XR Chest, 1 View CLINICAL HISTORY: INFECT TECHNIQUE: Frontal view of the chest. COMPARISON: Chest x-ray 09/26/20 at 724 FINDINGS: Lungs: Bilateral patchy airspace opacities, slightly worse in the left lung, not significantly changed given difference in technique. Hyperinflated lungs of COPD. Pleural space: Unremarkable. No pneumothorax. Heart: Unremarkable. No cardiomegaly. Mediastinum: Unremarkable. Bones/joints: Unremarkable. IMPRESSION: Bilateral patchy airspace opacities, slightly worse in the left lung, not significantly changed given difference in technique.
[2020-09-27] MEDS: Heparin 5000 units/ml inj SUBQ SCH ×2 (09:26→21:16)
[2020-09-27] MEDS: Benazepril 10mg tab ORAL SCH (09:27)
[2020-09-27] MEDS: Memantine 10mg tab ORAL SCH ×2 (09:27→21:12)
--- NOTE | 2020-09-27 10:58 | Pulmonology Progress Note ---
Subjective ROS Limited/Unobtainable: Yes Interval Events: None new reported Constitutional: Reports: fatigue; Denies: fever HEENT: Repors: no symptoms Respiratory: Reports: no symptoms Cardiovascular: Reports: no symptoms Gastrointestinal/Abdominal: Denies: nausea Psychiatric: Denies: depression Skin: Denies: rash Musculoskeletal: Denies: pain Allergies: Coded Allergies: No Known Allergies (Unverified , 09/21/20) Objective Last 24 Hour Vital Signs Date Time Temp Pulse Resp B/P (MAP) Pulse Ox O2 Delivery O2 Flow Rate FiO2 09/27/20 09:27 134/87 09/27/20 09:27 74 134/87 09/27/20 09:00 Room Air 09/27/20 08:00 96.6 81 18 134/87 (103) 98 09/27/20 08:00 74 09/27/20 04:00 89 09/27/20 04:00 96.6 84 20 133/75 (94) 99 09/27/20 00:00 96.8 93 20 112/66 (81) 99 09/27/20 00:00 114 09/26/20 21:00 Room Air 09/26/20 20:00 121 09/26/20 20:00 97.3 121 20 118/72 (87) 97 09/26/20 16:00 108 09/26/20 16:00 97.1 70 18 119/76 (90) 97 09/26/20 12:00 78 09/26/20 11:58 98.6 93 17 122/80 (94) 98 Intake and Output 09/26/20 09/27/20 19:00 07:00 Intake Total 720 ml 270 ml Balance 720 ml 270 ml Intake Oral 720 ml 270 ml # Voids 1 Objective 09/27 no change 09/26 remains on RA 09/25 no change 09/24 saturating well on RA; NAD General Appearance: no acute distress, cachetic HEENT: normocephalic Respiratory: chest wall non-tender, lungs clear Cardiovascular: normal peripheral pulses, normal rate Abdomen: normal bowel sounds Current Medications Medications (Trade) Dose Ordered Sig/Martin Route PRN Reason Start Time Stop Time Status Last Admin Dose Admin Amlodipine Besylate (Norvasc) 10 mg DAILY ORAL 09/23/20 09:00 10/23/20 08:59 09/27/20 09:27 Azithromycin 500 mg/Dextrose 275 ml @ 275 mls/hr Q24HRS IV 09/25/20 01:00 09/30/20 23:59 09/27/20 00:57 Benazepril HCl (Lotensin) 40 mg DAILY ORAL 09/23/20 09:00 10/23/20 08:59 09/27/20 09:27 Ceftriaxone Sodium 1 gm/ Dextrose 55 ml @ 110 mls/hr Q24HRS IVPB 09/23/20 00:00 09/30/20 00:00 09/27/20 00:00 Heparin Sodium (Porcine) (Heparin 5000 units/ml) 5,000 units EVERY 12 HOURS SUBQ 09/22/20 21:30 11/06/20 21:29 09/27/20 09:26 Lorazepam (Ativan 2mg/ml 1ml) 0.5 mg Q6H PRN IV Agitation 09/22/20 21:15 09/29/20 21:14 09/25/20 18:04 Memantine (Namenda) 10 mg Q12HR ORAL 09/23/20 09:00 10/23/20 08:59 09/27/20 09:27 Metronidazole (Flagyl) 500 mg EVERY 8 HOURS ORAL 09/22/20 22:00 09/29/20 21:59 09/27/20 06:02 Mirtazapine (Remeron) 7.5 mg BEDTIME ORAL 09/23/20 21:00 12/22/20 20:59 09/26/20 21:51 Quetiapine Fumarate (SEROqueL) 50 mg QHS ORAL 09/22/20 21:30 11/06/20 21:29 09/26/20 21:52 Trazodone HCl (Desyrel) 50 mg BEDTIME ORAL 09/22/20 21:30 10/22/20 21:29 09/26/20 21:52 Assessment/Plan Assessment/Plan 1. Pneumonia - remains saturating well on room air. - Provide supplemental oxygen as needed. - On azithromycin, Rocephin. - on Flagyl - CXR 09/24 shows mildly improved findings - CXR 09/26 Bilateral reticular and patchy infiltrates are unchanged. - CXR 09/27 Bilateral patchy airspace opacities, slightly worse in the left lung; no significant change since last XRay 2. Chest pain - CT angio C/A/P- neg for aortic dissection; ct chest shows extensive infiltrates; possibly chronic 3. Hypertension - BP management per nephro We will follow. DC planning per PMD The care for this patient was discussed with my supervising physician. Time spent for this case was approximately 31 minutes. Chiki Koch Sep 27, 2020 10:58 Casimiro Miranda MD Sep 27, 2020 12:01
--- NOTE | 2020-09-27 11:21 | Surgery Progress Note ---
Surgery Progress Note Subjective Additional Comments leukocytosis no n/v labs noted exams table Objective Last 24 Hour Vital Signs Date Time Temp Pulse Resp B/P (MAP) Pulse Ox O2 Delivery O2 Flow Rate FiO2 09/27/20 09:27 134/87 09/27/20 09:27 74 134/87 09/27/20 09:00 Room Air 09/27/20 08:00 96.6 81 18 134/87 (103) 98 09/27/20 08:00 74 09/27/20 04:00 89 09/27/20 04:00 96.6 84 20 133/75 (94) 99 09/27/20 00:00 96.8 93 20 112/66 (81) 99 09/27/20 00:00 114 09/26/20 21:00 Room Air 09/26/20 20:00 121 09/26/20 20:00 97.3 121 20 118/72 (87) 97 09/26/20 16:00 108 09/26/20 16:00 97.1 70 18 119/76 (90) 97 09/26/20 12:00 78 09/26/20 11:58 98.6 93 17 122/80 (94) 98 I&O Intake and Output 09/26/20 09/27/20 19:00 07:00 Intake Total 720 ml 270 ml Balance 720 ml 270 ml Intake Oral 720 ml 270 ml # Voids 1 Dressing: saturated Cardiovascular: RSR Respiratory: decreased breath sounds Abdomen: non-tender, present bowel sounds, non-distended Extremities: no tenderness, no cyanosis Plan Problems: (1) Failure to thrive (2) Malnutrition (3) Chest pain Assessment & Plan: unable to do CTA r/o dissection unlikely given clinical status and exam plain film noted cont bp will monitor Aorta and branches: The thoracic aorta is normal in caliber. No evidence of dissection or aneurysm demonstrated. Normal caliber and branching anatomy of the great neck vessels. No evidence of abdominal aortic aneurysm or dissection. The abdominal visceral vessels are patent and nonstenotic. Patent and nonstenotic bilateral common, external, and proximal internal iliac arteries are the exam protocol was not tailored for evaluation of pulmonary emboli. However, the pulmonary arteries are well opacified, and there are no findings to suggest acute pulmonary embolus demonstrated. Chest: Small focal areas of atelectasis and consolidation are seen in the posterior inferior left upper lobe. More hazy areas of opacity are also seen in the posterior left upper lobe. More extensive consolidation, atelectasis, as well as small irregular nodular opacities are seen in the left lower lobe. Nodular opacities as well as areas of infiltrate are seen in the left upper lobe. Near the base of the right upper lobe, there is suggestion of some tree-in-bud type opacities. The the right middle lobe is completely ectatic. Bronchiectatic air bronchograms within the collapsed right middle lobe suggests that this is due to chronic scarring with cicatrization. Fairly extensive micronodular opacities as well as more patchy opacities and larger nodular opacities are seen throughout the right lower lobe. A large calcified granuloma is seen in the inferior right lower lobe. There is trace pleural fluid on the right. Abdomen pelvis: The liver demonstrates multiple somewhat ill-defined low-attenuation lesions which are not clearly cystic in the right lobe, measuring up to 1.7 cm in diameter. The gallbladder is absent, presumed surgically removed. There is dilatation of the extrahepatic bile ducts, common bile duct measuring up to 9 mm in diameter. There is also ectasia of the pancreatic duct. The pancreas is otherwise unremarkable. The spleen, adrenals are unremarkable. The kidneys demonstrate bilateral cysts. The uterus and adnexal structures are unremarkable. The bladder is empty, contains a Berrios catheter. Lateral to the upper pole of the right kidney and posterior to the right hepatic lobe, there is an unusual soft tissue opacity that measures 2 cm in diameter, which appears to be contiguous with a soft tissue opacity extending through the rib musculature to the skin surface. There is also a slight focal irregularity of the adjacent 10th rib. The appendix is normal. Moderate retained stool is seen throughout the colon, particularly in the ascending colon. There are colonic diverticula. No evidence of diverticulitis. No small bowel distention. No free or loculated intraperitoneal gas or fluid is evident. The bones are unremarkable except for mild degenerative spondylosis changes. IMPRESSION: No evidence of acute aortic dissection or other acute vascular pathology Extensive bilateral pulmonary parenchymal disease, with combination of atelectasis, patchy consolidative opacities, nodular opacities, and tree-in-bud opacities. Appearance is nonspecific but likely reflects active inflammatory disease. There may be a significant chronic component as well. 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 Possibilities include complicated cysts, hemangiomas, neoplasm. Consider liver specific CT or MRI for better characterization Absent gallbladder. Dilated extrahepatic bile ducts without evidence of downstream obstructive lesion, likely related to age and postcholecystectomy state. Correlate with liver function tests, consider MRCP for better characterization if clinically indicated Mildly ectatic pancreatic duct, significance uncertain Unusual soft tissue opacity lateral to the upper pole right kidney. Significance uncertain, but by appearance may represent a old surgical drain tract to correlate with clinical history Colonic diverticulosis. 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 CURRENT DIET: Regular ms finely chopped PO DIET RECOMMENDATIONS--->>> Maintain REGULAR DIET/ Texture per [employer] ADDITIONAL RECOMMENDATIONS: 1) Add Ensure Enlive BID 2) Obtain a calibrated bed scale wts 3) Replete lytes-> low phos, mg 4) [employer] eval for appropriate texture Shadi Subramanian Sep 27, 2020 11:21
[2020-09-27 12:00] VITALS: BP 132/87
[2020-09-27] MEDS ORDERED: DOXYCYCLINE MO100 MG ORAL (12:36)
[2020-09-27] MEDS ORDERED: AUGMENTIN 875-1 EAC1 ORAL (12:36)
--- NOTE | 2020-09-27 12:46 | Discharge Instructions ---
Discharge Instructions Discharge Instructions Follow up with: primary care physician Call MD/Return to Hospital if: symptoms worsen or fail to improve Services at Discharge: home health services Diet: regular Resume Normal Activity?: Yes Special Instructions Take the 2 antibiotic medications Augmentin (amoxicllin-clavulanate) and Doxycycline 2 times a day until complete. Follow up with primary care physician within 7-14 days or as soon as possible. Follow up with technical producer (kidney doctor) Dr. Roseanne Haley in 7-14 days or as soon as possible. Have a BMP blood test (basic metabolic panel) checked with your primary care physician. For Congestive Heart Failure Reminder Report to your physician any weight gain of 5 pounds or more in one week. Erich Posadas M.D. Sep 27, 2020 12:46
--- NOTE | 2020-09-27 12:48 | Discharge Summary ---
Discharge Summary Hospital Course Date of Admission Sep 21, 2020 at 21:13 Date of Discharge 09/30/2020 Admitting Diagnosis Chest pain HPI Cristal Dee is a 80 year old female who was admitted on Sep 21, 2020 at 21:13 for Chest Pain Hospital Course This is a 80-year-old female with a past medical history of hypertension, hyperlipidemia and dementia presenting with chest pain cough and suspected bilateral pneumonia. #Bilateral pneumonia, CAP? Aspiration? #Chest pain, suspect due to above - CT Angio C/A/P without dissection #Leukocytosis secondary to above, now improving #Elevated LDH #elevated d-dimer #Anemia - improving Hgb today #hyperlipidemia > EKG reviewed. QTC 425 -Admit to telemetry -CT Angio C/A/P negative for dissection -Follow cultures - NTD -COVID negative -Abx per ID - Transition to PO antibiotics upon discharge -Rocephin (09/22 - ) -Azithromycin (09/22 - ) -Flagyl (09/22 - ) -Appreciate ID consult: Dr. Denny -Appreciate Pulm consult: Dr. Miranda -Consider Cardiology consult -troponin negative -2d echo -IV fluids and BP management per nephro #hypokalemia -Replete PRN -Nephro consulted #dementia #acute metabolic encephalopathy 2/2 above -treat as above FENPPX DVTPPX: per primary. HSQ GI PPX: none at this time Fluids: per nephro Diet: renal Lines: PIV PT/OT: pending Code status: Full per policy Dispo: pending resolution of above Reason for Continued Hospitalization: Pneumonia, IV antibiotics MIPS (Merit-based Incentive Payment System) Applicable CPT: 30364, 69523 CHECK ALL THAT ARE MET: [] Measure #5 (CHF): All ages. Prescribe GABE/ARB upon discharge for patients with left ventricular systolic dysfunction. If not, the reason is clearly documented in the medical chart [] Measure #8 (CHF): All ages. Prescribe a beta frank upon discharge for patients with left ventricular systolic dysfunction. If not, the reason is clearly documented in the medical chart. [] Measure #47: Advance care plan or surrogate decision maker documented in the medical record. [x] Measure #130 The provider has documented, updated, or reviewed the patients current medication list and has documented it in the patients note. [x] Measure #374 (All): Send report to referring provider. [] Measure #407(Sepsis due to MSSA bacteremia): Age 18+ Patient treated with a beta-lactam antibiotic (Nafcillin, Oxacillin or Cefazolin) as definitive therapy. MEDICAL COMPLEXITYHigh complexity medical decision making (need 2/3 categories)Problem - need 4 points [x]Acute/new problem with new plan for workup (4 points, 1 max) [] Acute/new problem without additional workup (3 points, 1 max) [] Unstable chronic problem actively being managed (2 point each, 2 max) [x] Stable chronic problem actively being managed (1 point each, 2 max) [x] Self-limited/transient process (constipation, muscle ache, etc) (1 point each, 2 max) Data - need 4 points [x] Reviewed labs/imaging studies (1 points, 2 max) [x] Independent review of imaging (EKG, xrays, etc) (2 points, 2 max) [x] Discussed case with consult/other MD/RN (2 points, 2 max) High Risk - qualify if have one of the following: [x] Severe exacerbation of acute problem, acute mental status change, IV n arcotics, monitoring drug levels (vancomycin, INR, tacrolimus etc) I spent 35 minutes on this patient's case, and 20 mins was dedicated to counseling and/or care coordination. Discussed with abdifatah PADILLA nephlaron, RN. Time of note may not reflect time of encounter Discharge Medications New Medications: Amoxicillin/Potassium Clav 875-125* (Augmentin 875-125 Tablet*) 1 Each Tablet 1 TAB ORAL TWICE A DAY for 4 Days, #8 TAB Doxycycline Monohydrate* (Doxycycline Monohydrate*) 100 Mg Capsule 100 MG ORAL Q12H for 4 Days, #8 CAP 0 Refills Continued Medications: Amlodipine Besylate (Norvasc) 10 Mg Tablet 10 MG ORAL DAILY for HTN, TAB Benazepril Hcl* (Benazepril Hcl*) 40 Mg Tablet 40 MG ORAL DAILY for HTN, #1 TAB Memantine HCl (Memantine HCl ER) 21 Mg Cap.spr.24 21 MG PO QD for denentia, CAP Mirtazapine* (Mirtazapine*) 7.5 Mg Tablet 7.5 MG ORAL BEDTIME for poor appetite, TAB Quetiapine Fumarate (Seroquel) 50 Mg Tablet 50 MG ORAL QHS for unknown for 1 Day, #15 TAB 0 Refills Trazodone Hcl* (Desyrel*) 50 Mg Tablet 50 MG ORAL BEDTIME PRN for qhs, TAB Discharge Condition Upon Discharge: improving Discharge Vital Signs Last Vital Signs Date Time Temp Pulse Resp B/P (MAP) Pulse Ox O2 Delivery O2 Flow Rate FiO2 09/27/20 12:00 74 09/27/20 12:00 96.7 19 132/87 (102) 96 09/27/20 09:00 Room Air Discharge Disposition Patient was discharged to home with home health Discharge Instructions Discharge Instructions Follow up with: primary care physician Call MD/Return to Hospital if: symptoms worsen or fail to improve Services Upon Discharge: home health services Erich Posadas M.D. Sep 27, 2020 12:48
[2020-09-27] MEDS ORDERED: Miralax 17gm pkt ORAL PRN (13:30)
[2020-09-27] MEDS: Miralax 17gm pkt ORAL SCH ×2 (13:31→21:13)
--- NOTE | 2020-09-27 13:39 | General Progress Note ---
Subjective Date patient seen: Sep 27, 2020 ROS Limited/Unobtainable: Yes Allergies: Coded Allergies: No Known Allergies (Unverified , 09/21/20) Subjective No acute events overnight per nursing. Patient reporting abdominal pain this morning but cannot elaborate further. Cannot elaborate on timing of symptoms. More awake and sitting up in bed today but unable to maintain a conversation. Further subjective history unable to be obtained due to ALOC. Unable to obtain further ROS due to ALOC Objective Last 24 Hour Vital Signs Date Time Temp Pulse Resp B/P (MAP) Pulse Ox O2 Delivery O2 Flow Rate FiO2 09/27/20 12:00 74 09/27/20 12:00 96.7 91 19 132/87 (102) 96 09/27/20 09:27 134/87 09/27/20 09:27 74 134/87 09/27/20 09:00 Room Air 09/27/20 08:00 96.6 81 18 134/87 (103) 98 09/27/20 08:00 74 09/27/20 04:00 89 09/27/20 04:00 96.6 84 20 133/75 (94) 99 09/27/20 00:00 96.8 93 20 112/66 (81) 99 09/27/20 00:00 114 09/26/20 21:00 Room Air 09/26/20 20:00 121 09/26/20 20:00 97.3 121 20 118/72 (87) 97 09/26/20 16:00 108 09/26/20 16:00 97.1 70 18 119/76 (90) 97 Intake and Output 09/26/20 09/27/20 19:00 07:00 Intake Total 720 ml 270 ml Balance 720 ml 270 ml Intake Oral 720 ml 270 ml # Voids 1 Height (Feet): 5 Height (Inches): 0.00 Weight (Pounds): 69 Objective General: WDWN female in NAD, sitting in bed in mild distress from abdominal pain HEENT: Normocephalic cephalic atraumatic, pupils equal round reactive to light and accommodation, nares patent and no symmetrical, no tonsillar exudates, mucou s membranes moist + poor dentition CV: Regular rate regular rhythm, no murmurs, rubs, or gallops Pulm: Lungs clear to auscultation bilaterally. No wheezes, rhonchi, or rales GI: firm, still nontender, nondistended Neuro: CN 2-12 intact bilaterally, no focal signs. Ext: No lower extremity edema bilaterally Skin: no rashes lesions or ulcers Msk: Joints symmetrical in upper extremity and lower extremity bilaterally, no joint swelling. Lymph: No lymphadenopathy in upper extremity and lower extremity 09/24/20 CT angio C/A/P No evidence of acute aortic dissection or other acute vascular pathology Extensive bilateral pulmonary parenchymal disease, with combination of atelectasis, patchy consolidative opacities, nodular opacities, and tree-in-bud opacities. Appearance is nonspecific but likely reflects active inflammatory disease. There may be a significant chronic component as well. 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 Possibilities include complicated cysts, hemangiomas, neoplasm. Consider liver specific CT or MRI for better characterization Absent gallbladder. Dilated extrahepatic bile ducts without evidence of do wnstream obstructive lesion, likely related to age and postcholecystectomy state. Correlate with liver function tests, consider MRCP for better characterization if clinically indicated Mildly ectatic pancreatic duct, significance uncertain Unusual soft tissue opacity lateral to the upper pole right kidney. Significance uncertain, but by appearance may represent a old surgical drain tract to correlate with clinical history Colonic diverticulosis. No evidence of diverticulitis Retained colonic stool Berrios catheter, degenerative spondylosis incidentally noted Assessment/Plan Assessment/Plan: This is a 80-year-old female with a past medical history of hypertension, hyperlipidemia and dementia presenting with chest pain cough and suspected bilateral pneumonia. #Bilateral pneumonia, CAP? Aspiration? #Chest pain, suspect due to above - CT Angio C/A/P without dissection #Leukocytosis secondary to above, now improving #Elevated LDH #elevated d-dimer #Anemia - improving Hgb today #hyperlipidemia > EKG reviewed. QTC 425 -Admit to telemetry -CT Angio C/A/P negative for dissection -Follow cultures - NTD -COVID negative -Abx per ID - Transition to PO antibiotics upon discharge Augmentin and Doxycycline ordered to patient's local pharmacy -Rocephin (09/22 - ) -Azithromycin (09/22 - ) -Flagyl (09/22 - ) -Appreciate ID consult: Dr. Denny -Appreciate Pulm consult: Dr. Miranda -Consider Cardiology consult -troponin negative -2d echo -IV fluids and BP management per nephro #Abdominal pain - Last BM 2 days ago per RN - Will try laxative today - If pain improved, can discharge #hypokalemia -Replete PRN -Nephro consulted #dementia #acute metabolic encephalopathy 2/2 above -treat as above FENPPX DVTPPX: per primary. HSQ GI PPX: none at this time Fluids: per nephro Diet: renal Lines: PIV PT/OT: pending Code status: Full per policy Dispo: pending resolution of above Reason for Continued Hospitalization: Abdominal pain MIPS (Merit-based Incentive Payment System) Applicable CPT: 26167, 33049 CHECK ALL THAT ARE MET: [] Measure #5 (CHF): All ages. Prescribe GABE/ARB upon discharge for patients with left ventricular systolic dysfunction. If not, the reason is clearly documented in the medical chart [] Measure #8 (CHF): All ages. Prescribe a beta frank upon discharge for patients with left ventricular systolic dysfunction. If not, the reason is clearly documented in the medical chart. [] Measure #47: Advance care plan or surrogate decision maker documented in the medical record. [x] Measure #130 The provider has documented, updated, or reviewed the patients current medication list and has documented it in the patients note. [x] Measure #374 (All): Send report to referring provider. [] Measure #407(Sepsis due to MSSA bacteremia): Age 18+ Patient treated with a beta-lactam antibiotic (Nafcillin, Oxacillin or Cefazolin) as definitive therapy. MEDICAL COMPLEXITYHigh complexity medical decision making (need 2/3 categories)Problem - need 4 points [x]Acute/new problem with new plan for workup (4 points, 1 max) [] Acute/new problem without additional workup (3 points, 1 max) [] Unstable chronic problem actively being managed (2 point each, 2 max) [x] Stable chronic problem actively being managed (1 point each, 2 max) [x] Self-limited/transient process (constipation, muscle ache, etc) (1 point each, 2 max) Data - need 4 points [x] Reviewed labs/imaging studies (1 points, 2 max) [x] Independent review of imaging (EKG, xrays, etc) (2 points, 2 max) [x] Discussed case with consult/other MD/RN (2 points, 2 max) High Risk - qualify if have one of the following: [x] Severe exacerbation of acute problem, acute mental status change, IV narcotics, monitoring drug levels (vancomycin, INR, tacrolimus etc) I spent 35 minutes on this patient's case, and 24 mins was dedicated to counseling and/or care coordination. Discussed with ID, abdifatah, nephlaron, RN. Time of note may not reflect time of encounter Erich Posadas M.D. Sep 27, 2020 13:38
[2020-09-27] MEDS ORDERED: NS 275ml ONE (15:20)
[2020-09-27] MEDS ORDERED: Tubing IV Secondary IV ONE (15:20)
--- NOTE | 2020-09-27 15:53 | NUR ---
HAND-OFF: Report given to [Loretta RN, pt stable restraints still in place, on RA, no distress, just complaint of abdominal pain, miralax given prior to transfer..
[2020-09-27 16:00] VITALS: BP 129/67
--- NOTE | 2020-09-27 16:00 | NUR ---
NURSE NOTES: Received pt from Tele and report from VIRGILIO Martínez. Pt awake, A&Ox1, confused. On RA , breathing even and unlabored. No acute distress noted. All belongings were accounted for. Skin intact. Noted norma. soft wrist restraints. IV intact and patent. Bed in low position, locked and alarm on. Call light within reach. Continue to monitor.
[2020-09-27] MEDS: LORazepam Inj 2mg/ml 1ml IV PRN (17:01)
--- NOTE | 2020-09-27 19:46 | NUR ---
NURSE HAND-OFF: Important Events on Shift:[Transfer from [facility], agitated, kept try to get out of bed] Patient Status: [stable] Diet: [Reg MS] Pending Orders: [] Pending Results/Labs:[] Pending MD notification:[] Latest Vital Signs: Temperature 97.8 , Pulse 74 , B/P 132 /87 , Respiratory Rate 19 , O2 SAT 96 , Room Air, O2 Flow Rate . Vital Sign Comment: [stable] Latest Collado Fall Score: 60 Fall Risk: High Risk Safety Measures: Call light Within Reach, Bed Alarm Zone 2, Side Rails Side Rails x3, Bed position Low and Locked. Fall Precautions: Yellow Socks Yellow Gown Patient Fall Education Report given to [VIRGILIO Bucio].
[2020-09-27 20:00] VITALS: BP 110/74
--- NOTE | 2020-09-27 20:41 | NUR ---
NURSES NOTE: Received report from VIRGILIO Jaramillo. Rounds made. Pt in bed, A/OX2, able to answer some questions appropriately in Hebrew. No outward s/s of distress noted. Breathing pattern is even and unlabored on RA. Pt in soft bilateral restraints. Skin is clear with no bruising noted. Pt to be turned Q2H. IV R H is in place, hep locked. Optifoam on L and R hip and sacral area for prophylactic skin care. All medications will be administered. Bed at lowest level. Pt will continue to be monitored.
--- NOTE | 2020-09-27 20:50 | Neurology Progress Note ---
Interim History Interim History ROS Limited/Unobtainable: Yes Interim History reprots being in pain, remains confused Objective Physical Exam Last Vital Signs Date Time Temp Pulse Resp B/P (MAP) Pulse Ox O2 Delivery O2 Flow Rate FiO2 09/27/20 17:31 74 19 132/87 96 09/27/20 16:00 97.8 09/27/20 09:00 Room Air Impression/Recommendations Problems: (1) Chest pain (2) Pneumonia (3) Failure to thrive (4) Malnutrition (5) Failure to thrive in adult Diagnostic Impression acute encephalopathy, likely metabolic given sepsis and pneumonia covid ro dementia pt does not have capacity medical support delirium precautions Fox Payne MD Sep 27, 2020 20:50
[2020-09-27] MEDS: TraZODone 50mg tab ORAL SCH (21:12)
[2020-09-27] MEDS: cefTRIAXone 1 GM in D5W 55 ML IVPB SCH ×3 (23:58)
[2020-09-28] VITALS: BP 109/72
[2020-09-28] MEDS: LORazepam Inj 2mg/ml 1ml IV PRN ×2 (00:01→22:11)
[2020-09-28] MEDS: Azithromycin 500 MG in D5W 275 ML IV SCH (01:59)
[2020-09-28 04:00] VITALS: BP 125/72
[2020-09-28] MEDS: metroNIDAZOLE 500mg tab ORAL SCH ×3 (05:27→21:29)
--- NOTE | 2020-09-28 05:51 | NUR ---
NURSES NOTE: No urination NOC shift. Bladder scan completed 768 cc. RN will call and request straight cath or mills.
[2020-09-28] MEDS ORDERED: Dyna-Hex 2% Top Sol 2oz TOPIC SCH (06:15)
--- NOTE | 2020-09-28 06:43 | NUR ---
NURSES NOTE: Dr. Haley called and new orders processed.
--- NOTE | 2020-09-28 06:44 | NUR ---
NURSE HAND-OFF: Important Events on Shift:[No urine NOC shift. Bladder scan 768cc. Dr Haley called and new orders processed.] Patient Status: [stable] Diet: [regular mechanical soft] Pending Orders: [none] Pending Results/Labs:[none] Pending MD notification:[none] Latest Vital Signs: Temperature 98.4 , Pulse 104 , B/P 125 /72 , Respiratory Rate 20 , O2 SAT 98 , Room Air, O2 Flow Rate . Vital Sign Comment: [within normal limits] Latest Collado Fall Score: 60 Fall Risk: High Risk Safety Measures: Call light Within Reach, Bed Alarm Zone 2, Side Rails Side Rails x3, Bed position Low and Locked. Fall Precautions: Yellow Socks Yellow Gown Patient Fall Education Report given to [].
[2020-09-28 08:00] VITALS: BP 119/65
--- NOTE | 2020-09-28 08:10 | NUR ---
HAND OFF: Report given to VIRGILIO Mackey
--- NOTE | 2020-09-28 08:30 | NUR ---
NURSE NOTES: Received report from Zac POOLE. Patient is awake and oriented to self, in no distress, reporting no pain. Berrios catheter draining to gravity, per report was placed this AM d/t inability to void. Patient on bilateral soft wrist restraints for safety, patient is high fall risk. Fall precautions maintained. Side rails upx3, bed low and locked, call light within reach, bed alarm armed.
[2020-09-28] MEDS: Heparin 5000 units/ml inj SUBQ SCH ×2 (09:02→21:30)
[2020-09-28] MEDS: Memantine 10mg tab ORAL SCH ×2 (09:02→21:29)
[2020-09-28] MEDS: Benazepril 10mg tab ORAL SCH (09:02)
--- NOTE | 2020-09-28 11:26 | Nephrology Progress Note ---
Assessment/Plan Plan #Hypokalemia #Sepsis #Pneumonia #Hypoxemic respiratory failure #AMS #history of dementia - replete lytes - IVF - antibiotics - ID eval - pulm eval - neuro eval - monitor renal function time spent 65 min Subjective Subjective potassium normal today Objective Objective Last 24 Hour Vital Signs Date Time Temp Pulse Resp B/P (MAP) Pulse Ox O2 Delivery O2 Flow Rate FiO2 09/28/20 09:02 119/65 09/28/20 09:02 75 119/65 09/28/20 08:00 97.9 75 18 119/65 (83) 97 09/28/20 04:00 98.4 104 20 125/72 (89) 98 09/28/20 00:31 110 18 111/71 99 09/28/20 00:01 110 18 109/72 99 09/28/20 00:00 98.1 110 19 109/72 (84) 99 09/27/20 21:00 Room Air 09/27/20 20:00 97.3 89 18 110/74 (86) 95 09/27/20 17:31 74 19 132/87 96 09/27/20 17:01 74 19 132/87 96 09/27/20 16:00 97.8 89 19 129/67 (87) 97 09/27/20 12:00 74 09/27/20 12:00 96.7 91 19 132/87 (102) 96 Intake and Output 09/27/20 09/28/20 19:00 07:00 Intake Total 360 ml 120 ml Output Total 700 ml Balance 360 ml -580 ml Intake Oral 360 ml 120 ml Output Urine Total 700 ml Height (Feet): 5 Height (Inches): 0.00 Weight (Pounds): 69 Roseanne Haley M.D. Sep 28, 2020 11:26
[2020-09-28 12:00] VITALS: BP 137/82
--- NOTE | 2020-09-28 12:02 | NUR ---
NURSE NOTES: Restraints removed per order. Patient is calm, not attempting to get OOB or pull out mills catheter at this time.
--- NOTE | 2020-09-28 12:18 | Pulmonology Progress Note ---
Subjective ROS Limited/Unobtainable: Yes Interval Events: None new reported Constitutional: Reports: fatigue; Denies: fever HEENT: Repors: no symptoms Respiratory: Reports: no symptoms Cardiovascular: Reports: no symptoms Gastrointestinal/Abdominal: Denies: nausea Psychiatric: Denies: depression Skin: Denies: rash Musculoskeletal: Denies: pain Allergies: Coded Allergies: No Known Allergies (Unverified , 09/21/20) Objective Last 24 Hour Vital Signs Date Time Temp Pulse Resp B/P (MAP) Pulse Ox O2 Delivery O2 Flow Rate FiO2 09/28/20 09:02 119/65 09/28/20 09:02 75 119/65 09/28/20 08:00 97.9 75 18 119/65 (83) 97 09/28/20 04:00 98.4 104 20 125/72 (89) 98 09/28/20 00:31 110 18 111/71 99 09/28/20 00:01 110 18 109/72 99 09/28/20 00:00 98.1 110 19 109/72 (84) 99 09/27/20 21:00 Room Air 09/27/20 20:00 97.3 89 18 110/74 (86) 95 09/27/20 17:31 74 19 132/87 96 09/27/20 17:01 74 19 132/87 96 09/27/20 16:00 97.8 89 19 129/67 (87) 97 Intake and Output 09/27/20 09/28/20 19:00 07:00 Intake Total 360 ml 120 ml Output Total 700 ml Balance 360 ml -580 ml Intake Oral 360 ml 120 ml Output Urine Total 700 ml General Appearance: no acute distress, cachetic HEENT: normocephalic Respiratory: chest wall non-tender, lungs clear Cardiovascular: normal peripheral pulses, normal rate Abdomen: normal bowel sounds Current Medications Medications (Trade) Dose Ordered Sig/Martin Route PRN Reason Start Time Stop Time Status Last Admin Dose Admin Amlodipine Besylate (Norvasc) 10 mg DAILY ORAL 09/23/20 09:00 10/23/20 08:59 09/28/20 09:02 Azithromycin 500 mg/Dextrose 275 ml @ 275 mls/hr Q24HRS IV 09/25/20 01:00 09/30/20 23:59 09/28/20 01:59 Benazepril HCl (Lotensin) 40 mg DAILY ORAL 09/23/20 09:00 10/23/20 08:59 09/28/20 09:02 Ceftriaxone Sodium 1 gm/ Dextrose 55 ml @ 110 mls/hr Q24HRS IVPB 09/23/20 00:00 09/30/20 00:00 09/27/20 23:58 Heparin Sodium (Porcine) (Heparin 5000 units/ml) 5,000 units EVERY 12 HOURS SUBQ 09/22/20 21:30 11/06/20 21:29 09/28/20 09:02 Lorazepam (Ativan 2mg/ml 1ml) 0.5 mg Q6H PRN IV Agitation 09/22/20 21:15 09/29/20 21:14 09/28/20 00:01 Memantine (Namenda) 10 mg Q12HR ORAL 09/23/20 09:00 10/23/20 08:59 09/28/20 09:02 Metronidazole (Flagyl) 500 mg EVERY 8 HOURS ORAL 09/22/20 22:00 09/29/20 21:59 09/28/20 05:27 Mirtazapine (Remeron) 7.5 mg BEDTIME ORAL 09/23/20 21:00 12/22/20 20:59 09/27/20 21:12 Polyethylene Glycol (Miralax) 17 gm BEDTIME ORAL 09/27/20 21:00 10/27/20 20:59 09/27/20 21:13 Polyethylene Glycol (Miralax) 17 gm DAILYPRN PRN ORAL Constipation 09/27/20 13:30 10/27/20 13:29 Quetiapine Fumarate (SEROqueL) 50 mg QHS ORAL 09/22/20 21:30 11/06/20 21:29 09/27/20 21:12 Trazodone HCl (Desyrel) 50 mg BEDTIME ORAL 09/22/20 21:30 10/22/20 21:29 09/27/20 21:12 Assessment/Plan Assessment/Plan 1. Pneumonia - remains saturating well on room air. - Provide supplemental oxygen as needed. - On azithromycin, Rocephin. - on Flagyl - CXR 09/24 shows mildly improved findings - CXR 09/26 Bilateral reticular and patchy infiltrates are unchanged. 2. Chest pain - CT angio C/A/P- neg for aortic dissection; ct chest shows extensive infiltrates; possibly chronic 3. Hypertension - BP management per nephro We will follow. DC planning per PMD Casimiro Miranda MD Sep 28, 2020 12:18
--- NOTE | 2020-09-28 14:01 | Surgery Progress Note ---
Surgery Progress Note Subjective Symptoms: improved, tolerating diet, passing flatus Objective Last 24 Hour Vital Signs Date Time Temp Pulse Resp B/P (MAP) Pulse Ox O2 Delivery O2 Flow Rate FiO2 09/28/20 09:02 119/65 09/28/20 09:02 75 119/65 09/28/20 08:00 97.9 75 18 119/65 (83) 97 09/28/20 04:00 98.4 104 20 125/72 (89) 98 09/28/20 00:31 110 18 111/71 99 09/28/20 00:01 110 18 109/72 99 09/28/20 00:00 98.1 110 19 109/72 (84) 99 09/27/20 21:00 Room Air 09/27/20 20:00 97.3 89 18 110/74 (86) 95 09/27/20 17:31 74 19 132/87 96 09/27/20 17:01 74 19 132/87 96 09/27/20 16:00 97.8 89 19 129/67 (87) 97 I&O Intake and Output 09/27/20 09/28/20 19:00 07:00 Intake Total 360 ml 120 ml Output Total 700 ml Balance 360 ml -580 ml Intake Oral 360 ml 120 ml Output Urine Total 700 ml Dressing: saturated Cardiovascular: RSR Respiratory: decreased breath sounds Abdomen: soft, non-tender, present bowel sounds Extremities: no tenderness, no cyanosis Plan Problems: (1) Failure to thrive (2) Malnutrition (3) Chest pain Assessment & Plan: unable to do CTA r/o dissection unlikely given clinical status and exam plain film noted cont bp will monitor Aorta and branches: The thoracic aorta is normal in caliber. No evidence of dissection or aneurysm demonstrated. Normal caliber and branching anatomy of the great neck vessels. No evidence of abdominal aortic aneurysm or dissection. The abdominal visceral vessels are patent and nonstenotic. Patent and nonstenotic bilateral common, external, and proximal internal iliac arteries are the exam protocol was not tailored for evaluation of pulmonary emboli. However, the pulmonary arteries are well opacified, and there are no findings to suggest acute pulmonary embolus demonstrated. Chest: Small focal areas of atelectasis and consolidation are seen in the posterior inferior left upper lobe. More hazy areas of opacity are also seen in the posterior left upper lobe. More extensive consolidation, atelectasis, as well as small irregular nodular opacities are seen in the left lower lobe. Nodular opacities as well as areas of infiltrate are seen in the left upper lobe. Near the base of the right upper lobe, there is suggestion of some tree-in-bud type opacities. The the right middle lobe is completely ectatic. Bronchiectatic air bronchograms within the collapsed right middle lobe suggests that this is due to chronic scarring with cicatrization. Fairly extensive micronodular opacities as well as more patchy opacities and larger nodular opacities are seen throughout the right lower lobe. A large calcified granuloma is seen in the inferior right lower lobe. There is trace pleural fluid on the right. Abdomen pelvis: The liver demonstrates multiple somewhat ill-defined low-attenuation lesions which are not clearly cystic in the right lobe, measuring up to 1.7 cm in diameter. The gallbladder is absent, presumed surgically removed. There is dilatation of the extrahepatic bile ducts, common bile duct measuring up to 9 mm in diameter. There is also ectasia of the pancreatic duct. The pancreas is otherwise unremarkable. The spleen, adrenals are unremarkable. The kidneys demonstrate bilateral cysts. The uterus and adnexal structures are unremarkable. The bladder is empty, contains a Berrios catheter. Lateral to the upper pole of the right kidney and posterior to the right hepatic lobe, there is an unusual soft tissue opacity that measures 2 cm in diameter, which appears to be contiguous with a soft tissue opacity extending through the rib musculature to the skin surface. There is also a slight focal irregularity of the adjacent 10th rib. The appendix is normal. Moderate retained stool is seen throughout the colon, particularly in the ascending colon. There are colonic diverticula. No evidence of diverticulitis. No small bowel distention. No free or loculated intraperitoneal gas or fluid is evident. The bones are unremarkable except for mild degenerative spondylosis changes. IMPRESSION: No evidence of acute aortic dissection or other acute vascular pathology Extensive bilateral pulmonary parenchymal disease, with combination of atelectasis, patchy consolidative opacities, nodular opacities, and tree-in-bud opacities. Appearance is nonspecific but likely reflects active inflammatory disease. There may be a significant chronic component as well. 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 Possibilities include complicated cysts, hemangiomas, neoplasm. Consider liver specific CT or MRI for better characterization Absent gallbladder. Dilated extrahepatic bile ducts without evidence of downstr eam obstructive lesion, likely related to age and postcholecystectomy state. Correlate with liver function tests, consider MRCP for better characterization if clinically indicated Mildly ectatic pancreatic duct, significance uncertain Unusual soft tissue opacity lateral to the upper pole right kidney. Significance uncertain, but by appearance may represent a old surgical drain tract to correlate with clinical history Colonic diverticulosis. No evidence of diverticulitis Retained colonic stool Berrios catheter, degenerative spondylosis incidentally noted (4) Pneumonia (5) Failure to thrive in adult Assessment & Plan: bmi 16 alb low high risk for malnutrition fairly bedbound overall needs nutritional optimization sheriff's officer eval DAILY ESTIMATED NEEDS: Needs based on Cardiac, pulmonary 37.3kg 30-35 kcals/kg 6157-1031 total kcals 1-1.5 g protein/kg 37-56 g total protein 25-35ml/kcal mL/kg [id number] total fluid mLs NUTRITION DIAGNOSIS: Altered nutrition related lab values r/t clinical status as evidenced by low K(2.7->wnl), low phos(2.3), low mag(1.7). CURRENT DIET: Regular ms finely chopped PO DIET RECOMMENDATIONS--->>> Maintain REGULAR DIET/ Texture per [employer] ADDITIONAL RECOMMENDATIONS: 1) Add Ensure Enlive BID 2) Obtain a calibrated bed scale wts 3) Replete lytes-> low phos, mg 4) P[employer] eval for appropriate texture Shadi Subramanian Sep 28, 2020 14:00
[2020-09-28 16:00] VITALS: BP 97/64
--- NOTE | 2020-09-28 16:16 | NUR ---
DISCHARGE PLANNING PATIENT HAS BEEN REFERRED FOR HOME HEALTH SERVICED TO [facility] PATIENTS DAUGHTER YANDEL WHO IS [place] SPEAKING ONLY VIA PHONE. INFORMED OF DC AND PLAN FOR TRANSPORTATION VIA [facility]. DTR AGREED WITH DC PLAN. ALSO INFORMED DTR THAT HOME HEALTH WILL CONTACT HER TO SCHEDULE APPT FOR EVAL. Addendum: 09/28/20 at 1620 by KAVON MCKEON LVN CM [facility] SCHEDULED WITH [facility] EXT [id number] WITH ETA @ 2088 PER CHELITA
--- NOTE | 2020-09-28 17:50 | NUR ---
NURSE NOTES: Spoke with patient's daughter Luz. Daughter stated she is not comfortable with patient coming home with mills catheter and requested for mills to be removed prior to d/c. Notified Dr. Posadas of family's request, MD ordered to d/c mills and try voiding trial, patient may d/c home after she voids per MD.
--- NOTE | 2020-09-28 18:08 | NUR ---
NURSE NOTES: Berrios catheter removed per MD order.
--- NOTE | 2020-09-28 18:59 | Infectious Diseases Prog Note ---
Assessment/Plan Assessment/Plan ASSESSMENT AND PLAN: 1. pneumonia, ? CAP, ? aspiration, sepsis, leukocytosis - ceftriaxone, azithromycin and flagyl - day # 6 - monitor labs and chest x-ray - clinically stable/improved - mild leukocytosis still 2. Dementia, aspiration risk. 3. Dyslipidemia, hyperlipidemia. Treatment per primary care team. 4. Hypertension. Blood pressure treatment per primary care team for hypertension. 5. Hypokalemia. 6. Anemia. 7. SIRS criteria. 8. COVID testing negative. 9. Continue treatment per primary provider and consultants. 10. Orders were noted and entered. 11. No known drug allergies. 12. Social history is negative. 13. Family history is noncontributory. 14. MAR is noted. 15. Case was discussed with RN. Subjective Constitutional: Denies: fever HEENT: Denies: congestion Respiratory: Denies: shortness of breath Cardiovascular: Denies: chest pain Gastrointestinal/Abdominal: Denies: nausea, vomiting, diarrhea Genitourinary: Reports: other - no mills Neurologic: Denies: headache Psychiatric: Denies: depression Skin: Denies: rash Hematologic: Denies: bleeding Musculoskeletal: Denies: pain Allergies: Coded Allergies: No Known Allergies (Unverified , 09/21/20) Objective Last 24 Hour Vital Signs Date Time Temp Pulse Resp B/P (MAP) Pulse Ox O2 Delivery O2 Flow Rate FiO2 09/28/20 16:00 98.4 87 16 97/64 (75) 97 09/28/20 12:00 97.3 89 18 137/82 (100) 97 09/28/20 09:02 119/65 09/28/20 09:02 75 119/65 09/28/20 09:00 Room Air 09/28/20 08:00 97.9 75 18 119/65 (83) 97 09/28/20 04:00 98.4 104 20 125/72 (89) 98 09/28/20 00:31 110 18 111/71 99 09/28/20 00:01 110 18 109/72 99 09/28/20 00:00 98.1 110 19 109/72 (84) 99 09/27/20 21:00 Room Air 09/27/20 20:00 97.3 89 18 110/74 (86) 95 Height (Feet): 5 Height (Inches): 0.00 Weight (Pounds): 69 General Appearance: no acute distress HEENT: normocephalic, atraumatic, anicteric, mucous membranes moist Respiratory/Chest: no respiratory distress, no accessory muscle use, crackles/rales, rhonchi - bilaterally Cardiovascular: normal rate, regular rhythm Abdomen: normal bowel sounds, soft, non tender, no organomegaly, non distended Genitourinary: other - no mills Extremities: no cyanosis Skin: no rash 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 Appearance is nonspecific but likely reflects active inflammatory disease. There may be a significant chronic component as well. 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 Possibilities include complicated cysts, hemangiomas, neoplasm. Consider liver specific CT or MRI for better characterization Absent gallbladder. Dilated extrahepatic bile ducts without evidence of sumit nstream obstructive lesion, likely related to age and postcholecystectomy state. Correlate with liver function tests, consider MRCP for better characterization if clinically indicated Mildly ectatic pancreatic duct, significance uncertain Unusual soft tissue opacity lateral to the upper pole right kidney. Significance uncertain, but by appearance may represent a old surgical drain tract to correlate with clinical history Colonic diverticulosis. No evidence of diverticulitis Retained colonic stool Mills catheter, degenerative spondylosis incidentally noted Chest x-ray - 09/24/20 - Procedure: XRAY Chest 1v Indication: Shortness of breath Technique: One view of the chest Comparison: 09/21/2020 Findings: Bilateral infiltrates appear slightly improved, with in particular slightly less airspace consolidation in the mid lungs bilaterally. Nonetheless, considerable disease persists. The pleural spaces remain clear. The heart size is normal. Impression: Slightly improved bilateral infiltrates since previous exam Chest x-ray - 09/27/20 - IMPRESSION: Bilateral patchy airspace opacities, slightly worse in the left lung, not significantly changed given difference in technique. Microbiology Date/Time Source Procedure Growth Status 09/22/20 09:48 Nasopharynx Coronavirus COVID-19 PCR ([facility]) - Final Complete 09/22/20 08:15 Blood Blood Culture - Final NO GROWTH AFTER 5 DAYS Complete Labs Test 09/26/20 06:40 White Blood Count 12.4 K/UL (4.8-10.8) Red Blood Count 3.97 M/UL (4.20-5.40) Hemoglobin 11.3 G/DL (12.0-16.0) Hematocrit 33.7 % (37.0-47.0) Mean Corpuscular Volume 85 FL (80-99) Mean Corpuscular Hemoglobin 28.6 PG (27.0-31.0) Mean Corpuscular Hemoglobin Concent 33.7 G/DL (32.0-36.0) Red Cell Distribution Width 13.4 % (11.6-14.8) Platelet Count 337 K/UL (150-450) Mean Platelet Volume 8.0 FL (6.5-10.1) Neutrophils (%) (Auto) % (45.0-75.0) Lymphocytes (%) (Auto) % (20.0-45.0) Monocytes (%) (Auto) % (1.0-10.0) Eosinophils (%) (Auto) % (0.0-3.0) Basophils (%) (Auto) % (0.0-2.0) Differential Total Cells Counted 100 Neutrophils % (Manual) 90 % (45-75) Lymphocytes % (Manual) 7 % (20-45) Monocytes % (Manual) 2 % (1-10) Eosinophils % (Manual) 1 % (0-3) Basophils % (Manual) 0 % (0-2) Band Neutrophils 0 % (0-8) Platelet Estimate Adequate Platelet Morphology Normal Hypochromasia 1+ Sodium Level 140 MMOL/L (136-145) Potassium Level 4.2 MMOL/L (3.5-5.1) Chloride Level 105 MMOL/L (98-107) Carbon Dioxide Level 30 MMOL/L (21-32) Anion Gap 5 mmol/L (5-15) Blood Urea Nitrogen 29 mg/dL (7-18) Creatinine 0.9 MG/DL (0.55-1.30) Estimat Glomerular Filtration Rate > 60 mL/min (>60) Glucose Level 140 MG/DL (74-106) Calcium Level 9.0 MG/DL (8.5-10.1) Total Bilirubin 0.4 MG/DL (0.2-1.0) Aspartate Amino Transf (AST/SGOT) 35 U/L (15-37) Alanine Aminotransferase (ALT/SGPT) 23 U/L (12-78) Alkaline Phosphatase 72 U/L (46-116) Total Protein 7.8 G/DL (6.4-8.2) Albumin 2.7 G/DL (3.4-5.0) Globulin 5.1 g/dL Albumin/Globulin Ratio 0.5 (1.0-2.7) Current Medications Medications (Trade) Dose Ordered Sig/Martin Route PRN Reason Start Time Stop Time Status Last Admin Dose Admin Amlodipine Besylate (Norvasc) 10 mg DAILY ORAL 09/23/20 09:00 10/23/20 08:59 09/28/20 09:02 Azithromycin 500 mg/Dextrose 275 ml @ 275 mls/hr Q24HRS IV 09/25/20 01:00 09/30/20 23:59 09/28/20 01:59 Benazepril HCl (Lotensin) 40 mg DAILY ORAL 09/23/20 09:00 10/23/20 08:59 09/28/20 09:02 Ceftriaxone Sodium 1 gm/ Dextrose 55 ml @ 110 mls/hr Q24HRS IVPB 09/23/20 00:00 09/30/20 00:00 09/27/20 23:58 Heparin Sodium (Porcine) (Heparin 5000 units/ml) 5,000 units EVERY 12 HOURS SUBQ 09/22/20 21:30 11/06/20 21:29 09/28/20 09:02 Lorazepam (Ativan 2mg/ml 1ml) 0.5 mg Q6H PRN IV Agitation 09/22/20 21:15 09/29/20 21:14 09/28/20 00:01 Memantine (Namenda) 10 mg Q12HR ORAL 09/23/20 09:00 10/23/20 08:59 09/28/20 09:02 Metronidazole (Flagyl) 500 mg EVERY 8 HOURS ORAL 09/22/20 22:00 09/29/20 21:59 09/28/20 14:49 Mirtazapine (Remeron) 7.5 mg BEDTIME ORAL 09/23/20 21:00 12/22/20 20:59 09/27/20 21:12 Polyethylene Glycol (Miralax) 17 gm BEDTIME ORAL 09/27/20 21:00 10/27/20 20:59 09/27/20 21:13 Polyethylene Glycol (Miralax) 17 gm DAILYPRN PRN ORAL Constipation 09/27/20 13:30 10/27/20 13:29 Quetiapine Fumarate (SEROqueL) 50 mg QHS ORAL 09/22/20 21:30 11/06/20 21:29 09/27/20 21:12 Trazodone HCl (Desyrel) 50 mg BEDTIME ORAL 09/22/20 21:30 10/22/20 21:29 09/27/20 21:12 Shan Arnold MD Sep 28, 2020 18:59
--- NOTE | 2020-09-28 19:03 | General Progress Note ---
Subjective Date patient seen: Sep 28, 2020 ROS Limited/Unobtainable: Yes Allergies: Coded Allergies: No Known Allergies (Unverified , 09/21/20) Subjective No acute events overnight per nursing. Had mills placed last night with large UOP that relieved abdominal pain. Further subjective history unable to be obtained due to ALOC. Unable to obtain further ROS due to ALOC Objective Last 24 Hour Vital Signs Date Time Temp Pulse Resp B/P (MAP) Pulse Ox O2 Delivery O2 Flow Rate FiO2 09/28/20 16:00 98.4 87 16 97/64 (75) 97 09/28/20 12:00 97.3 89 18 137/82 (100) 97 09/28/20 09:02 119/65 09/28/20 09:02 75 119/65 09/28/20 09:00 Room Air 09/28/20 08:00 97.9 75 18 119/65 (83) 97 09/28/20 04:00 98.4 104 20 125/72 (89) 98 09/28/20 00:31 110 18 111/71 99 09/28/20 00:01 110 18 109/72 99 09/28/20 00:00 98.1 110 19 109/72 (84) 99 09/27/20 21:00 Room Air 09/27/20 20:00 97.3 89 18 110/74 (86) 95 Intake and Output 09/27/20 09/28/20 18:59 06:59 Intake Total 360 ml 120 ml Output Total 700 ml Balance 360 ml -580 ml Intake Oral 360 ml 120 ml Output Urine Total 700 ml Height (Feet): 5 Height (Inches): 0.00 Weight (Pounds): 69 Objective General: WDWN female in NAD, sitting in bed. HEENT: Normocephalic cephalic atraumatic, pupils equal round reactive to light and accommodation, nares patent and no symmetrical, no tonsillar exudates, mucous membranes moist + poor dentition CV: Regular rate regular rhythm, no murmurs, rubs, or gallops Pulm: Lungs clear to auscultation bilaterally. No wheezes, rhonchi, or rales GI: firm, still nontender, nondistended Neuro: CN 2-12 intact bilaterally, no focal signs. Ext: No lower extremity edema bilaterally Skin: no rashes lesions or ulcers Msk: Joints symmetrical in upper extremity and lower extremity bilaterally, no joint swelling. Lymph: No lymphadenopathy in upper extremity and lower extremity 09/24/20 CT angio C/A/P No evidence of acute aortic dissection or other acute vascular pathology Extensive bilateral pulmonary parenchymal disease, with combination of atelectasis, patchy consolidative opacities, nodular opacities, and tree-in-bud opacities. Appearance is nonspecific but likely reflects active inflammatory disease. There may be a significant chronic component as well. 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 Possibilities include complicated cysts, hemangiomas, neoplasm. Consider liver specific CT or MRI for better characterization Absent gallbladder. Dilated extrahepatic bile ducts without evidence of downstream obstructive lesion, likely related to age and postcholecystectomy state. Correlate with liver function tests, consider MRCP for better characterization if clinically indicated Mildly ectatic pancreatic duct, significance uncertain Unusual soft tissue opacity lateral to the upper pole right kidney. Significance uncertain, but by appearance may represent a old surgical drain tract to correlate with clinical history Colonic diverticulosis. No evidence of diverticulitis Retained colonic stool Mills catheter, degenerative spondylosis incidentally noted Assessment/Plan Assessment/Plan: This is a 80-year-old female with a past medical history of hypertension, hyper lipidemia and dementia presenting with chest pain cough and suspected bilateral pneumonia. #Bilateral pneumonia, CAP? Aspiration? #Chest pain, suspect due to above - CT Angio C/A/P without dissection #Leukocytosis secondary to above, now improving #Elevated LDH #elevated d-dimer #Anemia - improving Hgb today #hyperlipidemia > EKG reviewed. QTC 425 -Admit to telemetry -CT Angio C/A/P negative for dissection -Follow cultures - NTD -COVID negative -Abx per ID - Transition to PO antibiotics upon discharge Augmentin and Doxycycline ordered to patient's local pharmacy -Rocephin (09/22 - ) -Azithromycin (09/22 - ) -Flagyl (09/22 - ) -Appreciate ID consult: Dr. Denny -Appreciate Pulm consult: Dr. Miranda -Consider Cardiology consult -troponin negative -2d echo -IV fluids and BP management per nephro #Urinary retention - Voiding trial today #hypokalemia -Replete PRN -Nephro consulted #dementia #acute metabolic encephalopathy 2/2 above -treat as above FENPPX DVTPPX: per primary. HSQ GI PPX: none at this time Fluids: per nephro Diet: renal Lines: PIV PT/OT: pending Code status: Full per policy Dispo: pending resolution of above Reason for Continued Hospitalization: Voiding trial MIPS (Merit-based Incentive Payment System) Applicable CPT: 39253, 11021 CHECK ALL THAT ARE MET: [] Measure #5 (CHF): All ages. Prescribe GABE/ARB upon discharge for patients with left ventricular systolic dysfunction. If not, the reason is clearly documented in the medical chart [] Measure #8 (CHF): All ages. Prescribe a beta frank upon discharge for patients with left ventricular systolic dysfunction. If not, the reason is clearly documented in the medical chart. [] Measure #47: Advance care plan or surrogate decision maker documented in the medical record. [x] Measure #130 The provider has documented, updated, or reviewed the patients current medication list and has documented it in the patients note. [x] Measure #374 (All): Send report to referring provider. [] Measure #407(Sepsis due to MSSA bacteremia): Age 18+ Patient treated with a beta-lactam antibiotic (Nafcillin, Oxacillin or Cefazolin) as definitive therapy. MEDICAL COMPLEXITYHigh complexity medical decision making (need 2/3 categories)Problem - need 4 points [x]Acute/new problem with new plan for workup (4 points, 1 max) [] Acute/new problem without additional workup (3 points, 1 max) [] Unstable chronic problem actively being managed (2 point each, 2 max) [x] Stable chronic problem actively being managed (1 point each, 2 max) [x] Self-limited/transient process (constipation, muscle ache, etc) (1 point each, 2 max) Data - need 4 points [x] Reviewed labs/imaging studies (1 points, 2 max) [x] Independent review of imaging (EKG, xrays, etc) (2 points, 2 max) [x] Discussed case with consult/other MD/RN (2 points, 2 max) High Risk - qualify if have one of the following: [x] Severe exacerbation of acute problem, acute mental status change, IV narcotics, monitoring drug levels (vancomycin, INR, tacrolimus etc) I spent 35 minutes on this patient's case, and 20 mins was dedicated to counseling and/or care coordination. Discussed with abdifatah PADILLA, nephlaron, RN. Time of note may not reflect time of encounter Erich Posadas M.D. Sep 28, 2020 19:03
--- NOTE | 2020-09-28 19:11 | Neurology Progress Note ---
Interim History Interim History ROS Limited/Unobtainable: Yes Interim History remains somnolent and poorly interactive Objective Physical Exam Last Vital Signs Date Time Temp Pulse Resp B/P (MAP) Pulse Ox O2 Delivery O2 Flow Rate FiO2 09/28/20 16:00 98.4 87 16 97/64 (75) 97 09/28/20 09:00 Room Air Impression/Recommendations Problems: (1) Chest pain (2) Pneumonia (3) Failure to thrive (4) Malnutrition (5) Failure to thrive in adult Diagnostic Impression acute encephalopathy, likely metabolic given sepsis and pneumonia covid ro dementia pt does not have capacity medical support delirium precautions Fox Payne MD Sep 28, 2020 19:11
--- NOTE | 2020-09-28 19:20 | NUR ---
NURSE HAND-OFF: Important Events on Shift: F/c removed, d/c pending voiding trial. Patient has not voided yet. Patient Status: stable Diet: Regular Pending Orders: D/d pending. [facility] ambulance on "will call" Pending Results/Labs: N/A Pending MD notification: N/A Latest Vital Signs: Temperature 98.4 , Pulse 87 , B/P 97 /64 , Respiratory Rate 16 , O2 SAT 97 , Room Air Vital Sign Comment: VS stable Latest Collado Fall Score: 60 Fall Risk: High Risk Safety Measures: Call light Within Reach, Bed Alarm Zone 2, Side Rails Side Rails x3, Bed position Low and Locked. Fall Precautions: Yellow Socks Yellow Gown Patient Fall Education Report given to Cirilo POOLE.
[2020-09-28 20:00] VITALS: BP 102/61
[2020-09-28 20:20] LABS: ALANINE AMINOTRANSFERASE 20 U/L (12-78); ALBUMIN 2.3 G/DL (3.4-5.0); ALBUMIN/GLOBULIN RATIO 0.6 (1.0-2.7); ALKALINE PHOSPHATASE 58 U/L (46-116); ANION GAP 1 mmol/L (5-15); ASPARTATE AMINO TRANSFERASE 23 U/L (15-37); BILIRUBIN,TOTAL 0.3 MG/DL (0.2-1.0); BLOOD UREA NITROGEN 24 mg/dL (7-18); CALCIUM 8.5 MG/DL (8.5-10.1); CARBON DIOXIDE 31 MMOL/L (21-32); CHLORIDE 103 MMOL/L (98-107); CREATININE 0.9 MG/DL (0.55-1.30); POTASSIUM 3.9 MMOL/L (3.5-5.1); SODIUM 135 MMOL/L (136-145)
[2020-09-28 20:26] LABS: BASOPHILS % (AUTO) 1.9 % (0.0-2.0); EOSINOPHILS % (AUTO) 7.7 % (0.0-3.0); HEMATOCRIT 30.1 % (37.0-47.0); HEMOGLOBIN 10.3 G/DL (12.0-16.0); LYMPHOCYTES % (AUTO) 19.8 % (20.0-45.0); MEAN CORPUSCULAR VOLUME 83 FL (80-99); MONOCYTES % (AUTO) 9.3 % (1.0-10.0); NEUTROPHILS % (AUTO) 61.4 % (45.0-75.0); PLATELET COUNT 280 K/UL (150-450); RED BLOOD COUNT 3.62 M/UL (4.20-5.40); RED CELL DISTRIBUTION WIDTH 13.8 % (11.6-14.8); WHITE BLOOD COUNT 4.8 K/UL (4.8-10.8)
--- NOTE | 2020-09-28 20:49 | NUR ---
NURSE NOTES: Pt is in bed, awake and verbal. Greek speaking. No acute distress noted. Patient has a discharge order to go home, however, patient has not voided after removals of the Berrios cath. Per doctor if patient voids the patient can go home via ambulance. Pt urine be monitored for urine output. Fall precaution in place. Bed alarm on, bed locked low in position,side rails up and call light within reach.
[2020-09-28] MEDS: TraZODone 50mg tab ORAL SCH (21:29)
--- NOTE | 2020-09-28 23:00 | NUR ---
NURSE NOTES: Pt is very agitated and wants to walk away from the room, pt reoriented and fed. Ativan given as ordered PRN.
[2020-09-29] VITALS (16 sets, daily range): BP systolic 100–119; BP diastolic 61–76
[2020-09-29] MEDS: cefTRIAXone 1 GM in D5W 55 ML IVPB SCH (00:28)
[2020-09-29] MEDS: Azithromycin 500 MG in D5W 275 ML IV SCH (01:27)
--- NOTE | 2020-09-29 02:00 | NUR ---
NURSE NOTES: Pt is not voiding on her own yet, traight cath performed Addendum: 09/29/20 at 0631 by HARRISON VANN RN RN Straight cath performed and 450 ml urine taken out.
[2020-09-29] MEDS: LORazepam Inj 2mg/ml 1ml IV PRN (06:05)
[2020-09-29] MEDS: metroNIDAZOLE 500mg tab ORAL SCH ×2 (06:06→14:21)
--- NOTE | 2020-09-29 06:32 | NUR ---
NURSE NOTES: Pt is in bed, calm. No acute distress noted.
--- NOTE | 2020-09-29 07:15 | NUR ---
NURSE NOTES: Pt was found on the floor at 0700AM. Pt assisted to the bed, vitals taken: temp 97.5; HR 78; BP 110/61; RR 18 O2 sta 96% NO PAIN. Pt denies hitting head, pt denies any pain on the body. No visible injuries on the body. Pt was able to walk back to the bed with assistance. Pt is awake and verbal. Dr. Haley was called, order received for STAT right hip X-ray and bilat soft wrist restraints. Daughter Luz Dudley is called at [phone]. Pt is stable now, calm in bed. Post fall physical assessment performed, neuro check performed. Fall precautions in place. Bed alarm on, restraints on, side rails up and call light within reach. Bed locked low in position. Patient is closed to nursing station now. Oncoming nurse will be informed to monitor patient closely.
--- NOTE | 2020-09-29 07:15 | NUR ---
NURSE NOTES: Seen pt on initial rounds, awake, confused, trying to get out of bed. Assessed and secure bilateral soft wrist restraints, skin and CMS intact. repositioned pt and placed bed alarm. room at nursing station, frequent rounding implemented. Addendum: 09/30/20 at 0218 by REYNALDO PLEITEZ Error on time entry
--- NOTE | 2020-09-29 07:20 | NUR ---
NURSE HAND-OFF: Important Events on Shift:[fall at 0700] Patient Status: [stable] Diet: [] Pending Orders: [] Pending Results/Labs:[] Pending MD notification:[] Latest Vital Signs: Temperature 97.8 , Pulse 71 , B/P 100 /64 , Respiratory Rate 20 , O2 SAT 96 , Room Air, O2 Flow Rate . Vital Sign Comment: [] Latest Collado Fall Score: 60 Fall Risk: High Risk Safety Measures: Call light Within Reach, Bed Alarm Zone 2, Side Rails Side Rails x3, Bed position Low and Locked. Fall Precautions: Yellow Socks Yellow Gown Patient Fall Education Report given to [Kierra Ingram RN. Informed regarding the fall and asked to monitor closely for fall risk ].
--- NOTE | 2020-09-29 07:49 | NUR ---
NURSE NOTES: Received report from VIRGILIO Kerr. Pt in bed, awake, A&Ox2. Welsh speaking. On RA, breathing even and unlabored. S/p fall , neuro check will be continued. pending right hip x-ray, will follow up. Pt on Jorge.. soft wrist restraints for safety, skin intact. Fall precaution in place. Bed alarm on, bed locked and low in position, side rails up and call light within reach.
[2020-09-29] MEDS: Benazepril 10mg tab ORAL SCH (08:28)
[2020-09-29] MEDS: Heparin 5000 units/ml inj SUBQ SCH ×2 (08:28→20:19)
[2020-09-29] MEDS: Memantine 10mg tab ORAL SCH ×2 (09:12→20:07)
--- NOTE | 2020-09-29 10:03 | Nephrology Progress Note ---
Assessment/Plan Plan #Hypokalemia #Sepsis #Pneumonia #Hypoxemic respiratory failure #AMS #history of dementia - replete lytes - IVF - antibiotics - ID eval - pulm eval - neuro eval - monitor renal function time spent 65 min Subjective ROS Limited/Unobtainable: Yes Subjective had a fall last night xray obtained Objective Objective Last 24 Hour Vital Signs Date Time Temp Pulse Resp B/P (MAP) Pulse Ox O2 Delivery O2 Flow Rate FiO2 09/29/20 09:00 Room Air 09/29/20 08:41 97.8 96 09/29/20 08:29 71 100/64 09/29/20 08:28 100/64 09/29/20 08:11 97.9 96 09/29/20 08:00 97.8 81 20 101/61 (74) 97 09/29/20 07:41 97.8 96 09/29/20 07:15 97.5 96 09/29/20 07:11 Room Air 09/29/20 07:00 97.5 96 09/29/20 06:35 71 20 110/68 96 09/29/20 06:05 71 20 116/64 96 09/29/20 04:00 98.6 71 20 116/64 (81) 96 09/28/20 22:41 85 18 118/72 98 09/28/20 22:11 85 20 122/78 98 09/28/20 21:00 Room Air 09/28/20 20:00 98.1 85 20 102/61 (75) 98 09/28/20 16:00 98.4 87 16 97/64 (75) 97 09/28/20 12:00 97.3 89 18 137/82 (100) 97 Intake and Output 09/28/20 09/29/20 19:00 07:00 Intake Total 300 ml 930 ml Output Total 450 ml 460 ml Balance -150 ml 470 ml Intake Oral 300 ml 600 ml IV Total 330 ml Output Urine Total 450 ml 460 ml Laboratory Tests 09/28/20 19:30: White Blood Count 4.8, Red Blood Count 3.62L, Hemoglobin 10.3L, Hematocrit 30.1L , Mean Corpuscular Volume 83, Mean Corpuscular Hemoglobin 28.5, Mean Corpuscular Hemoglobin Concent 34.2, Red Cell Distribution Width 13.8, Platelet Count 280, Mean Platelet Volume 9.0, Neutrophils (%) (Auto) 61.4, Lymphocytes (%) (Auto) 19.8L, Monocytes (%) (Auto) 9.3, Eosinophils (%) (Auto) 7.7H, Basophils (%) (Auto) 1.9, Sodium Level 135L, Potassium Level 3.9, Chloride Level 103, Carbon Dioxide Level 31, Anion Gap 1L, Blood Urea Nitrogen 24H, Creatinine 0.9, Estimat Glomerular Filtration Rate > 60, Glucose Level 144H, Calcium Level 8.5, Total Bilirubin 0.3, Aspartate Amino Transf (AST/SGOT) 23, Alanine Aminotransferase (ALT/SGPT) 20, Alkaline Phosphatase 58, Total Protein 6.3L, Albumin 2.3L, Globulin 4.0, Albumin/Globulin Ratio 0.6L Height (Feet): 5 Height (Inches): 0.00 Weight (Pounds): 69 General Appearance: no apparent distress EENT: PERRL/EOMI, normal ENT inspection Neck: non-tender, normal alignment Cardiovascular: normal peripheral pulses, normal rate, regular rhythm Respiratory/Chest: chest wall non-tender, lungs clear, normal breath sounds Abdomen: normal bowel sounds, non tender Roseanne Haley M.D. Sep 29, 2020 10:03
--- NOTE | 2020-09-29 10:08 | Diagnostic Imaging Report ---
EXAM: XR Right Hip 3 View CLINICAL HISTORY: FALL TECHNIQUE: 3 Views of the right hip. COMPARISON: No relevant prior studies available. FINDINGS: Bones/joints: Mild degenerative spine. No acute fracture. No dislocation. Joint space is maintained. Soft tissues: Unremarkable. Gastrointestinal tract: Large stool in the rectum. IMPRESSION: 1. No acute fracture or malalignment. Consider CT if there is further clinical concern. 2. Large amount of stool in the rectum may be fecal impaction.
--- NOTE | 2020-09-29 11:27 | Pulmonology Progress Note ---
Subjective ROS Limited/Unobtainable: Yes Interval Events: None new reported Constitutional: Denies: fever HEENT: Repors: no symptoms Respiratory: Reports: no symptoms Cardiovascular: Reports: no symptoms Gastrointestinal/Abdominal: Denies: nausea, vomiting, diarrhea Psychiatric: Denies: depression Skin: Denies: rash Musculoskeletal: Denies: pain Allergies: Coded Allergies: No Known Allergies (Unverified , 09/21/20) Objective Last 24 Hour Vital Signs Date Time Temp Pulse Resp B/P (MAP) Pulse Ox O2 Delivery O2 Flow Rate FiO2 09/29/20 10:41 97.8 96 09/29/20 09:41 98.0 96 09/29/20 09:00 Room Air 09/29/20 08:41 97.8 96 09/29/20 08:29 71 100/64 09/29/20 08:28 100/64 09/29/20 08:11 97.9 96 09/29/20 08:00 97.8 81 20 101/61 (74) 97 09/29/20 07:41 97.8 96 09/29/20 07:15 97.5 96 09/29/20 07:11 Room Air 09/29/20 07:00 97.5 96 09/29/20 06:35 71 20 110/68 96 09/29/20 06:05 71 20 116/64 96 09/29/20 04:00 98.6 71 20 116/64 (81) 96 09/28/20 22:41 85 18 118/72 98 09/28/20 22:11 85 20 122/78 98 09/28/20 21:00 Room Air 09/28/20 20:00 98.1 85 20 102/61 (75) 98 09/28/20 16:00 98.4 87 16 97/64 (75) 97 09/28/20 12:00 97.3 89 18 137/82 (100) 97 Intake and Output 09/28/20 09/29/20 19:00 07:00 Intake Total 300 ml 930 ml Output Total 450 ml 460 ml Balance -150 ml 470 ml Intake Oral 300 ml 600 ml IV Total 330 ml Output Urine Total 450 ml 460 ml General Appearance: no acute distress, cachetic HEENT: normocephalic Respiratory: chest wall non-tender, lungs clear Cardiovascular: normal peripheral pulses, normal rate Abdomen: normal bowel sounds Laboratory Tests 09/28/20 19:30: White Blood Count 4.8, Red Blood Count 3.62L, Hemoglobin 10.3L, Hematocrit 30.1L , Mean Corpuscular Volume 83, Mean Corpuscular Hemoglobin 28.5, Mean Corpuscular Hemoglobin Concent 34.2, Red Cell Distribution Width 13.8, Platelet Count 280, Mean Platelet Volume 9.0, Neutrophils (%) (Auto) 61.4, Lymphocytes (%) (Auto) 19.8L, Monocytes (%) (Auto) 9.3, Eosinophils (%) (Auto) 7.7H, Basophils (%) (Auto) 1.9, Sodium Level 135L, Potassium Level 3.9, Chloride Level 103, Carbon Dioxide Level 31, Anion Gap 1L, Blood Urea Nitrogen 24H, Creatinine 0.9, Estimat Glomerular Filtration Rate > 60, Glucose Level 144H, Calcium Level 8.5, Total Bilirubin 0.3, Aspartate Amino Transf (AST/SGOT) 23, Alanine Aminotransferase (ALT/SGPT) 20, Alkaline Phosphatase 58, Total Protein 6.3L, Albumin 2.3L, Globulin 4.0, Albumin/Globulin Ratio 0.6L Current Medications Medications (Trade) Dose Ordered Sig/Martin Route PRN Reason Start Time Stop Time Status Last Admin Dose Admin Amlodipine Besylate (Norvasc) 10 mg DAILY ORAL 09/23/20 09:00 10/23/20 08:59 09/28/20 09:02 Azithromycin 500 mg/Dextrose 275 ml @ 275 mls/hr Q24HRS IV 09/25/20 01:00 09/30/20 23:59 09/29/20 01:27 Benazepril HCl (Lotensin) 40 mg DAILY ORAL 09/23/20 09:00 10/23/20 08:59 09/28/20 09:02 Ceftriaxone Sodium 1 gm/ Dextrose 55 ml @ 110 mls/hr Q24HRS IVPB 09/23/20 00:00 09/30/20 00:00 09/29/20 00:28 Heparin Sodium (Porcine) (Heparin 5000 units/ml) 5,000 units EVERY 12 HOURS SUBQ 09/22/20 21:30 11/06/20 21:29 09/28/20 21:30 Lorazepam (Ativan 2mg/ml 1ml) 0.5 mg Q6H PRN IV Agitation 09/22/20 21:15 09/29/20 21:14 09/29/20 06:05 Memantine (Namenda) 10 mg Q12HR ORAL 09/23/20 09:00 10/23/20 08:59 09/29/20 09:12 Metronidazole (Flagyl) 500 mg EVERY 8 HOURS ORAL 09/22/20 22:00 09/29/20 21:59 09/29/20 06:06 Mirtazapine (Remeron) 7.5 mg BEDTIME ORAL 09/23/20 21:00 12/22/20 20:59 09/28/20 21:29 Polyethylene Glycol (Miralax) 17 gm BEDTIME ORAL 09/27/20 21:00 10/27/20 20:59 09/27/20 21:13 Polyethylene Glycol (Miralax) 17 gm DAILYPRN PRN ORAL Constipation 09/27/20 13:30 10/27/20 13:29 Quetiapine Fumarate (SEROqueL) 50 mg QHS ORAL 09/22/20 21:30 11/06/20 21:29 09/28/20 21:00 Trazodone HCl (Desyrel) 50 mg BEDTIME ORAL 09/22/20 21:30 10/22/20 21:29 09/28/20 21:29 Assessment/Plan Assessment/Plan Assessment/Plan 1. Pneumonia - remains saturating well on room air. - Provide supplemental oxygen as needed. - On azithromycin, Rocephin. - on Flagyl - CXR 09/24 shows mildly improved findings - CXR 09/26 Bilateral reticular and patchy infiltrates are unchanged. 2. Chest pain - CT angio C/A/P- neg for aortic dissection; ct chest shows extensive infiltrates; possibly chronic 3. Hypertension - BP management per nephro 4,. S/P Fall We will follow. Patient will be discharge tomorrow as per nursing staff, arranging home health Zen Cornejo NP Sep 29, 2020 11:27 Casimiro Miranda MD Sep 30, 2020 17:22
--- NOTE | 2020-09-29 18:13 | Surgery Progress Note ---
Surgery Progress Note Subjective Symptoms: improved, tolerating diet, passing flatus Objective Last 24 Hour Vital Signs Date Time Temp Pulse Resp B/P (MAP) Pulse Ox O2 Delivery O2 Flow Rate FiO2 09/29/20 16:41 97.8 96 09/29/20 16:00 97.9 80 18 119/66 (83) 97 09/29/20 12:41 97.9 96 09/29/20 12:00 98.0 93 20 110/75 (87) 97 09/29/20 11:41 97.9 96 09/29/20 10:41 97.8 96 09/29/20 09:41 98.0 96 09/29/20 09:00 Room Air 09/29/20 08:41 97.8 96 09/29/20 08:29 71 100/64 09/29/20 08:28 100/64 09/29/20 08:11 97.9 96 09/29/20 08:00 97.8 81 20 101/61 (74) 97 09/29/20 07:41 97.8 96 09/29/20 07:15 97.5 96 09/29/20 07:11 Room Air 09/29/20 07:00 97.5 96 09/29/20 06:35 71 20 110/68 96 09/29/20 06:05 71 20 116/64 96 09/29/20 04:00 98.6 71 20 116/64 (81) 96 09/28/20 22:41 85 18 118/72 98 09/28/20 22:11 85 20 122/78 98 09/28/20 21:00 Room Air 09/28/20 20:00 98.1 85 20 102/61 (75) 98 I&O Intake and Output 09/28/20 09/29/20 18:59 06:59 Intake Total 300 ml 930 ml Output Total 450 ml 460 ml Balance -150 ml 470 ml Intake Oral 300 ml 600 ml IV Total 330 ml Output Urine Total 450 ml 460 ml Dressing: saturated Cardiovascular: RSR Respiratory: decreased breath sounds Abdomen: non-tender, present bowel sounds, non-distended Extremities: no edema, no tenderness, no cyanosis Laboratory Tests Test 09/28/20 19:30 White Blood Count 4.8 K/UL (4.8-10.8) Red Blood Count 3.62 M/UL (4.20-5.40) L Hemoglobin 10.3 G/DL (12.0-16.0) L Hematocrit 30.1 % (37.0-47.0) L Mean Corpuscular Volume 83 FL (80-99) Mean Corpuscular Hemoglobin 28.5 PG (27.0-31.0) Mean Corpuscular Hemoglobin Concent 34.2 G/DL (32.0-36.0) Red Cell Distribution Width 13.8 % (11.6-14.8) Platelet Count 280 K/UL (150-450) Mean Platelet Volume 9.0 FL (6.5-10.1) Neutrophils (%) (Auto) 61.4 % (45.0-75.0) Lymphocytes (%) (Auto) 19.8 % (20.0-45.0) L Monocytes (%) (Auto) 9.3 % (1.0-10.0) Eosinophils (%) (Auto) 7.7 % (0.0-3.0) H Basophils (%) (Auto) 1.9 % (0.0-2.0) Sodium Level 135 MMOL/L (136-145) L Potassium Level 3.9 MMOL/L (3.5-5.1) Chloride Level 103 MMOL/L (98-107) Carbon Dioxide Level 31 MMOL/L (21-32) Anion Gap 1 mmol/L (5-15) L Blood Urea Nitrogen 24 mg/dL (7-18) H Creatinine 0.9 MG/DL (0.55-1.30) Estimat Glomerular Filtration Rate > 60 mL/min (>60) Glucose Level 144 MG/DL (74-106) H Calcium Level 8.5 MG/DL (8.5-10.1) Total Bilirubin 0.3 MG/DL (0.2-1.0) Aspartate Amino Transf (AST/SGOT) 23 U/L (15-37) Alanine Aminotransferase (ALT/SGPT) 20 U/L (12-78) Alkaline Phosphatase 58 U/L (46-116) Total Protein 6.3 G/DL (6.4-8.2) L Albumin 2.3 G/DL (3.4-5.0) L Globulin 4.0 g/dL Albumin/Globulin Ratio 0.6 (1.0-2.7) L Plan Problems: (1) Failure to thrive (2) Malnutrition (3) Chest pain Assessment & Plan: unable to do CTA r/o dissection unlikely given clinical status and exam plain film noted cont bp will monitor Aorta and branches: The thoracic aorta is normal in caliber. No evidence of dissection or aneurysm demonstrated. Normal caliber and branching anatomy of the great neck vessels. No evidence of abdominal aortic aneurysm or dissection. The abdominal visceral vessels are patent and nonstenotic. Patent and nonstenotic bilateral common, external, and proximal internal iliac arteries are the exam protocol was not tailored for evaluation of pulmonary emboli. However, the pulmonary arteries are well opacified, and there are no findings to suggest acute pulmonary embolus demonstrated. Chest: Small focal areas of atelectasis and consolidation are seen in the posterior inferior left upper lobe. More hazy areas of opacity are also seen in the posterior left upper lobe. More extensive consolidation, atelectasis, as well as small irregular nodular opacities are seen in the left lower lobe. Nodular opacities as well as areas of infiltrate are seen in the left upper lobe. Near the base of the right upper lobe, there is suggestion of some tree-in-bud type opacities. The the right middle lobe is completely ectatic. Bronchiectatic air bronchograms within the collapsed right middle lobe suggests that this is due to chronic scarring with cicatrization. Fairly extensive micronodular opacities as well as more patchy opacities and larger nodular opacities are seen throughout the right lower lobe. A large calcified granuloma is seen in the inferior right lower lobe. There is trace pleural fluid on the right. Abdomen pelvis: The liver demonstrates multiple somewhat ill-defined low-attenuation lesions which are not clearly cystic in the right lobe, measuring up to 1.7 cm in diameter. The gallbladder is absent, presumed surgically removed. There is dilatation of the extrahepatic bile ducts, common bile duct measuring up to 9 mm in diameter. There is also ectasia of the pancreatic duct. The pancreas is otherwise unremarkable. The spleen, adrenals are unremarkable. The kidneys demonstrate bilateral cysts. The uterus and adnexal structures are unremarkable. The bladder is empty, contains a Berrios catheter. Lateral to the upper pole of the right kidney and posterior to the right hepatic lobe, there is an unusual soft tissue opacity that measures 2 cm in diameter, which appears to be contiguous with a soft tissue opacity extending through the rib musculature to the skin surface. There is also a slight focal irregularity of the adjacent 10th rib. The appendix is normal. Moderate retained stool is seen throughout the colon, particularly in the ascending colon. There are colonic diverticula. No evidence of diverticulitis. No small bowel distention. No free or loculated intraperitoneal gas or fluid is evident. The bones are unremarkable except for mild degenerative spondylosis changes. IMPRESSION: No evidence of acute aortic dissection or other acute vascular pathology Extensive bilateral pulmonary parenchymal disease, with combination of atelectas is, patchy consolidative opacities, nodular opacities, and tree-in-bud opacities. Appearance is nonspecific but likely reflects active inflammatory disease. There may be a significant chronic component as well. 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 Possibilities include complicated cysts, hemangiomas, neoplasm. Consider liver specific CT or MRI for better characterization Absent gallbladder. Dilated extrahepatic bile ducts without evidence of downstream obstructive lesion, likely related to age and postcholecystectomy state. Correlate with liver function tests, consider MRCP for better characterization if clinically indicated Mildly ectatic pancreatic duct, significance uncertain Unusual soft tissue opacity lateral to the upper pole right kidney. Significance uncertain, but by appearance may represent a old surgical drain tract to correlate with clinical history Colonic diverticulosis. No evidence of diverticulitis Retained colonic stool Berrios catheter, degenerative spondylosis incidentally noted (4) Pneumonia (5) Failure to thrive in adult Assessment & Plan: bmi 16 alb low high risk for malnutrition fairly bedbound overall needs nutritional optimization applications instructor eval DAILY ESTIMATED NEEDS: Needs based on Cardiac, pulmonary 37.3kg 30-35 kcals/kg 6264-8011 total kcals 1-1.5 g protein/kg 37-56 g total protein 25-35ml/kcal mL/kg 933-1306 total fluid mLs NUTRITION DIAGNOSIS: Altered nutrition related lab values r/t clinical status as evidenced by low K(2.7->wnl), low phos(2.3), low mag(1.7). CURRENT DIET: Regular ms finely chopped PO DIET RECOMMENDATIONS--->>> Maintain REGULAR DIET/ Texture per MECHANICAL PROJECT MANAGER ADDITIONAL RECOMMENDATIONS: 1) Add Ensure Enlive BID 2) Obtain a calibrated bed scale wts 3) Replete lytes-> low phos, mg 4) MECHANICAL PROJECT MANAGER eval for appropriate texture Shadi Subramanian Sep 29, 2020 18:13
--- NOTE | 2020-09-29 18:31 | General Progress Note ---
Subjective Date patient seen: Sep 29, 2020 ROS Limited/Unobtainable: Yes Allergies: Coded Allergies: No Known Allergies (Unverified , 09/21/20) Subjective Patient fell earlier this morning after voiding after mills removed. Hip xray ordered, no acute fracture noted. Abdominal pain improved. Further subjective history unable to be obtained due to ALOC. Unable to obtain further ROS due to ALOC Objective Last 24 Hour Vital Signs Date Time Temp Pulse Resp B/P (MAP) Pulse Ox O2 Delivery O2 Flow Rate FiO2 09/29/20 16:41 97.8 96 09/29/20 16:00 97.9 80 18 119/66 (83) 97 09/29/20 12:41 97.9 96 09/29/20 12:00 98.0 93 20 110/75 (87) 97 09/29/20 11:41 97.9 96 09/29/20 10:41 97.8 96 09/29/20 09:41 98.0 96 09/29/20 09:00 Room Air 09/29/20 08:41 97.8 96 09/29/20 08:29 71 100/64 09/29/20 08:28 100/64 09/29/20 08:11 97.9 96 09/29/20 08:00 97.8 81 20 101/61 (74) 97 09/29/20 07:41 97.8 96 09/29/20 07:15 97.5 96 09/29/20 07:11 Room Air 09/29/20 07:00 97.5 96 09/29/20 06:35 71 20 110/68 96 09/29/20 06:05 71 20 116/64 96 09/29/20 04:00 98.6 71 20 116/64 (81) 96 09/28/20 22:41 85 18 118/72 98 09/28/20 22:11 85 20 122/78 98 09/28/20 21:00 Room Air 09/28/20 20:00 98.1 85 20 102/61 (75) 98 Intake and Output 09/28/20 09/29/20 19:00 07:00 Intake Total 300 ml 930 ml Output Total 450 ml 460 ml Balance -150 ml 470 ml Intake Oral 300 ml 600 ml IV Total 330 ml Output Urine Total 450 ml 460 ml Laboratory Tests 09/28/20 19:30: White Blood Count 4.8, Red Blood Count 3.62L, Hemoglobin 10.3L, Hematocrit 30.1L , Mean Corpuscular Volume 83, Mean Corpuscular Hemoglobin 28.5, Mean Corpuscular Hemoglobin Concent 34.2, Red Cell Distribution Width 13.8, Platelet Count 280, Mean Platelet Volume 9.0, Neutrophils (%) (Auto) 61.4, Lymphocytes (%) (Auto) 19.8L, Monocytes (%) (Auto) 9.3, Eosinophils (%) (Auto) 7.7H, Basophils (%) (Auto) 1.9, Sodium Level 135L, Potassium Level 3.9, Chloride Level 103, Carbon Dioxide Level 31, Anion Gap 1L, Blood Urea Nitrogen 24H, Creatinine 0.9, Estimat Glomerular Filtration Rate > 60, Glucose Level 144H, Calcium Level 8.5, Total Bilirubin 0.3, Aspartate Amino Transf (AST/SGOT) 23, Alanine Aminotransferase (ALT/SGPT) 20, Alkaline Phosphatase 58, Total Protein 6.3L, Albumin 2.3L, Globulin 4.0, Albumin/Globulin Ratio 0.6L Height (Feet): 5 Height (Inches): 0.00 Weight (Pounds): 69 Objective General: WDWN female in NAD, laying in bed. HEENT: Normocephalic cephalic atraumatic, pupils equal round reactive to light and accommodation, nares patent and no symmetrical, no tonsillar exudates, mucous membranes moist + poor dentition CV: Regular rate regular rhythm, no murmurs, rubs, or gallops Pulm: Lungs clear to auscultation bilaterally. No wheezes, rhonchi, or rales GI: firm, still nontender, nondistended Neuro: CN 2-12 intact bilaterally, no focal signs. Ext: No lower extremity edema bilaterally Skin: no rashes lesions or ulcers Msk: Joints symmetrical in upper extremity and lower extremity bilaterally, no joint swelling. Lymph: No lymphadenopathy in upper extremity and lower extremity 09/24/20 CT angio C/A/P No evidence of acute aortic dissection or other acute vascular pathology Extensive bilateral pulmonary parenchymal disease, with combination of atelectasis, patchy consolidative opacities, nodular opacities, and tree-in-bud opacities. Appearance is nonspecific but likely reflects active inflammatory disease. There may be a significant chronic component as well. 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 Possibilities include complicated cysts, hemangiomas, neoplasm. Consider liver specific CT or MRI for better characterization Absent gallbladder. Dilated extrahepatic bile ducts without evidence of downstream obstructive lesion, likely related to age and postcholecystectomy state. Correlate with liver function tests, consider MRCP for better characterization if clinically indicated Mildly ectatic pancreatic duct, significance uncertain Unusual soft tissue opacity lateral to the upper pole right kidney. Significance uncertain, but by appearance may represent a old surgical drain tract to correlate with clinical history Colonic diverticulosis. No evidence of diverticulitis Retained colonic stool Mills catheter, degenerative spondylosis incidentally noted Assessment/Plan Assessment/Plan: This is a 80-year-old female with a past medical history of hypertension, hyperlipidemia and dementia presenting with chest pain cough and suspected bilateral pneumonia. #Bilateral pneumonia, CAP? Aspiration? #Chest pain, suspect due to above - CT Angio C/A/P without dissection #Leukocytosis secondary to above, now improving #Elevated LDH #elevated d-dimer #Anemia - improving Hgb today #hyperlipidemia > EKG reviewed. QTC 425 -Admit to telemetry -CT Angio C/A/P negative for dissection -Follow cultures - NTD -COVID negative -Abx per ID - Transition to PO antibiotics upon discharge Augmentin and Doxycycline ordered to patient's local pharmacy -Rocephin (09/22 - ) -Azithromycin (09/22 - ) -Flagyl (09/22 - ) -Appreciate ID consult: Dr. Denny -Appreciate Pulm consult: Dr. Miranda -Consider Cardiology consult -troponin negative -2d echo -IV fluids and BP management per nephro #Fall - no fracture on hip xray #Urinary retention - voiding without mills now - outpatient follow up with urology #hypokalemia -Replete PRN -Nephro consulted #dementia #acute metabolic encephalopathy 2/2 above -treat as above FENPPX DVTPPX: per primary. HSQ GI PPX: none at this time Fluids: per nephro Diet: renal Lines: PIV PT/OT: pending Code status: Full per policy Dispo: pending resolution of above Reason for Continued Hospitalization: hip xray and checking to see if can remain without mills catheter MIPS ([employer]it-based Incentive Payment System) Applicable CPT: 34016, 49651 CHECK ALL THAT ARE MET: [] Measure #5 (CHF): All ages. Prescribe GABE/ARB upon discharge for patients with left ventricular systolic dysfunction. If not, the reason is clearly documented in the medical chart [] Measure #8 (CHF): All ages. Prescribe a beta frank upon discharge for patients with left ventricular systolic dysfunction. If not, the reason is clearly documented in the medical chart. [] Measure #47: Advance care plan or surrogate decision maker documented in the medical record. [x] Measure #130 The provider has documented, updated, or reviewed the patients current medication list and has documented it in the patients note. [x] Measure #374 (All): Send report to referring provider. [] Measure #407(Sepsis due to MSSA bacteremia): Age 18+ Patient treated with a beta-lactam antibiotic (Nafcillin, Oxacillin or Cefazolin) as definitive therapy. MEDICAL COMPLEXITYHigh complexity medical decision making (need 2/3 categories)Problem - need 4 points [x]Acute/new problem with new plan for workup (4 points, 1 max) [] Acute/new problem without additional workup (3 points, 1 max) [] Unstable chronic problem actively being managed (2 point each, 2 max) [x] Stable chronic problem actively being managed (1 point each, 2 max) [x] Self-limited/transient process (constipation, muscle ache, etc) (1 point each, 2 max) Data - need 4 points [x] Reviewed labs/imaging studies (1 points, 2 max) [x] Independent review of imaging (EKG, xrays, etc) (2 points, 2 max) [x] Discussed case with consult/other MD/RN (2 points, 2 max) High Risk - qualify if have one of the following: [x] Severe exacerbation of acute problem, acute mental status change, IV narcotics, monitoring drug levels (vancomycin, INR, tacrolimus etc) I spent 39 minutes on this patient's case, and 22 mins was dedicated to counseling and/or care coordination. Discussed with ID, pulsreekanth, nephlaron, RN. Time of note may not reflect time of encounter Erich Posadas M.D. Sep 29, 2020 18:31
--- NOTE | 2020-09-29 19:15 | NUR ---
NURSE NOTES: Seen pt on initial rounds, awake, confused, trying to get out of bed. Assessed and secure bilateral soft wrist restraints, skin and CMS intact. repositioned pt and placed bed alarm. room at nursing station, frequent rounding implemented
--- NOTE | 2020-09-29 19:17 | NUR ---
NURSE HAND-OFF: Important Events on Shift:[S/p fall, x-ray showed no fracture, hold discharge today, will discharge home with different home health] Patient Status: [] Diet: [reg ms] Pending Orders: [] Pending Results/Labs:[] Pending MD notification:[] Latest Vital Signs: Temperature 97.8 , Pulse 80 , B/P 110 /64 , Respiratory Rate 18 , O2 SAT 96 , Room Air, O2 Flow Rate . Vital Sign Comment: [stable] Latest Collado Fall Score: 60 Fall Risk: High Risk Safety Measures: Call light Within Reach, Bed Alarm Zone 2, Side Rails Side Rails x3, Bed position Low and Locked. Fall Precautions: Yellow Socks Yellow Gown Patient Fall Education Report given to [VIRGILIO Davison].
[2020-09-29] MEDS: Miralax 17gm pkt ORAL SCH (20:08)
[2020-09-29] MEDS: TraZODone 50mg tab ORAL SCH (20:12)
--- NOTE | 2020-09-29 20:19 | Neurology Progress Note ---
Interim History Interim History ROS Limited/Unobtainable: Yes Interim History remains confused, denies JAVIER , had fall earlier today Objective Physical Exam Last Vital Signs Date Time Temp Pulse Resp B/P (MAP) Pulse Ox O2 Delivery O2 Flow Rate FiO2 09/29/20 16:41 97.8 96 09/29/20 16:00 80 18 119/66 (83) 09/29/20 09:00 Room Air Impression/Recommendations Problems: (1) Chest pain (2) Pneumonia (3) Failure to thrive (4) Malnutrition (5) Failure to thrive in adult Diagnostic Impression acute encephalopathy, likely metabolic given sepsis and pneumonia covid ro dementia pt does not have capacity medical support delirium precautions Fox Payne MD Sep 29, 2020 20:19
[2020-09-30] VITALS: BP 94/57
[2020-09-30] MEDS: Azithromycin 500 MG in D5W 275 ML IV SCH (00:15)
[2020-09-30] MEDS: cefTRIAXone 1 GM in D5W 55 ML IVPB SCH (00:15)
--- NOTE | 2020-09-30 02:03 | NUR ---
NURSE NOTES: Seen pt on initial rounds, awake, confused, trying to get out of bed. Assessed and secure bilateral soft wrist restraints, skin and CMS intact. repositioned pt and placed bed alarm. room at nursing station, frequent rounding implemented. Addendum: 09/30/20 at 0210 by REYNALDO PLEITEZ Initial note during hand-off
[2020-09-30 04:00] VITALS: BP 121/72
--- NOTE | 2020-09-30 07:15 | NUR ---
NURSE HAND-OFF: Important Events on Shift: Patient Status: Diet: Pending Orders: Pending Results/Labs: Pending MD notification: Latest Vital Signs: Temperature 98.2 , Pulse 89 , B/P 121 /72 , Respiratory Rate 18 , O2 SAT 98 , Room Air, O2 Flow Rate . Vital Sign Comment: Latest Collado Fall Score: 85 Fall Risk: High Risk Safety Measures: Call light Within Reach, Bed Alarm Zone 2, Side Rails Side Rails x3, Bed position Low and Locked. Fall Precautions: Yellow Socks Yellow Gown Patient Fall Education Report given to .
--- NOTE | 2020-09-30 07:45 | NUR ---
NURSE NOTES:report given by kayden bernal.bedside rounds done,pt with bilateral wrist restraints due to agitation/climbming out of bed/pulling out devices.no circulatory impairment.feed for breakfast,ate 100/%,alert/orientedx2,will continue plan of care
[2020-09-30 08:00] VITALS: BP 124/71
[2020-09-30] MEDS: Benazepril 10mg tab ORAL SCH (08:18)
[2020-09-30] MEDS: Memantine 10mg tab ORAL SCH (08:18)
[2020-09-30] MEDS: Heparin 5000 units/ml inj SUBQ SCH (08:20)
--- NOTE | 2020-09-30 08:43 | Nephrology Progress Note ---
Assessment/Plan Plan #Hypokalemia #Sepsis #Pneumonia #Hypoxemic respiratory failure #AMS #history of dementia - replete lytes - IVF - antibiotics - ID eval - pulm eval - neuro eval - monitor renal function time spent 65 min Subjective ROS Limited/Unobtainable: Yes Subjective had a fall last night xray obtained Objective Objective Last 24 Hour Vital Signs Date Time Temp Pulse Resp B/P (MAP) Pulse Ox O2 Delivery O2 Flow Rate FiO2 09/30/20 08:19 59 124/79 09/30/20 08:18 124/71 09/30/20 07:41 Room Air 09/30/20 04:00 98.2 89 18 121/72 (88) 98 09/30/20 00:00 97.9 88 18 94/57 (69) 96 09/29/20 21:00 Room Air 09/29/20 20:41 98.0 85 18 116/65 (82) 97 09/29/20 20:41 98.0 97 09/29/20 20:00 98.0 89 18 118/76 (90) 96 09/29/20 16:41 97.8 96 09/29/20 16:00 97.9 80 18 119/66 (83) 97 09/29/20 12:41 97.9 96 09/29/20 12:00 98.0 93 20 110/75 (87) 97 09/29/20 11:41 97.9 96 09/29/20 10:41 97.8 96 09/29/20 09:41 98.0 96 09/29/20 09:00 Room Air Intake and Output 09/29/20 09/30/20 19:00 07:00 Intake Total 700 ml 580 ml Output Total 300 ml Balance 700 ml 280 ml Intake Oral 700 ml 250 ml IV Total 330 ml Output Urine Total 300 ml # Voids 3 2 Height (Feet): 5 Height (Inches): 0.00 Weight (Pounds): 69 Roseanne Haley M.D. Sep 30, 2020 08:42
--- NOTE | 2020-09-30 09:37 | NUR ---
DISCHARGE PLANNING PATIENT HAS BEEN REFERRED TO [facility] P [phone] F [phone] S/W BRENNON WHO CONFIRMS PATIENT WILL BE SERVICED WITH PLAN FOR SOC 10/01/20 Addendum: 09/30/20 at 1159 by KAVON MCKEON [facility] REPORTED TO MD THEY ARE NOT ABLE TO PROVIDE LEVEL OF CARE NEEDED AT HOME FOR PATIENT. PATIENT WILL BE REFERRED FOR SNF PLACEMENT.
--- NOTE | 2020-09-30 10:30 | Pulmonology Progress Note ---
Subjective ROS Limited/Unobtainable: Yes Interval Events: s/p fall Constitutional: Denies: fever HEENT: Repors: no symptoms Respiratory: Reports: no symptoms Cardiovascular: Reports: no symptoms Gastrointestinal/Abdominal: Denies: nausea, vomiting, diarrhea Psychiatric: Denies: depression Skin: Denies: rash Musculoskeletal: Denies: pain Allergies: Coded Allergies: No Known Allergies (Unverified , 09/21/20) Objective Last 24 Hour Vital Signs Date Time Temp Pulse Resp B/P (MAP) Pulse Ox O2 Delivery O2 Flow Rate FiO2 09/30/20 08:19 59 124/79 09/30/20 08:18 124/71 09/30/20 08:00 97.2 59 18 124/71 (88) 97 09/30/20 07:41 Room Air 09/30/20 04:00 98.2 89 18 121/72 (88) 98 09/30/20 00:00 97.9 88 18 94/57 (69) 96 09/29/20 21:00 Room Air 09/29/20 20:41 98.0 85 18 116/65 (82) 97 09/29/20 20:41 98.0 97 09/29/20 20:00 98.0 89 18 118/76 (90) 96 09/29/20 16:41 97.8 96 09/29/20 16:00 97.9 80 18 119/66 (83) 97 09/29/20 12:41 97.9 96 09/29/20 12:00 98.0 93 20 110/75 (87) 97 09/29/20 11:41 97.9 96 09/29/20 10:41 97.8 96 Intake and Output 09/29/20 09/30/20 19:00 07:00 Intake Total 700 ml 580 ml Output Total 300 ml Balance 700 ml 280 ml Intake Oral 700 ml 250 ml IV Total 330 ml Output Urine Total 300 ml # Voids 3 2 Objective 09/30 on room air 09/27 no change 09/26 remains on RA 09/25 no change 09/24 saturating well on RA; NAD General Appearance: no acute distress, cachetic HEENT: normocephalic Respiratory: chest wall non-tender, lungs clear Cardiovascular: normal peripheral pulses, normal rate Abdomen: normal bowel sounds Current Medications Medications (Trade) Dose Ordered Sig/Martin Route PRN Reason Start Time Stop Time Status Last Admin Dose Admin Amlodipine Besylate (Norvasc) 10 mg DAILY ORAL 09/23/20 09:00 10/23/20 08:59 09/30/20 08:19 Azithromycin 500 mg/Dextrose 275 ml @ 275 mls/hr Q24HRS IV 09/25/20 01:00 09/30/20 23:59 09/30/20 00:15 Benazepril HCl (Lotensin) 40 mg DAILY ORAL 09/23/20 09:00 10/23/20 08:59 09/30/20 08:18 Heparin Sodium (Porcine) (Heparin 5000 units/ml) 5,000 units EVERY 12 HOURS SUBQ 09/22/20 21:30 11/06/20 21:29 09/30/20 08:20 Memantine (Namenda) 10 mg Q12HR ORAL 09/23/20 09:00 10/23/20 08:59 09/30/20 08:18 Mirtazapine (Remeron) 7.5 mg BEDTIME ORAL 09/23/20 21:00 12/22/20 20:59 09/29/20 20:07 Polyethylene Glycol (Miralax) 17 gm BEDTIME ORAL 09/27/20 21:00 10/27/20 20:59 09/29/20 20:08 Polyethylene Glycol (Miralax) 17 gm DAILYPRN PRN ORAL Constipation 09/27/20 13:30 10/27/20 13:29 Quetiapine Fumarate (SEROqueL) 50 mg QHS ORAL 09/30/20 21:00 11/14/20 20:59 Trazodone HCl (Desyrel) 50 mg BEDTIME ORAL 09/22/20 21:30 10/22/20 21:29 09/29/20 20:12 Assessment/Plan Assessment/Plan 1. Pneumonia - remains saturating well on room air. - Provide supplemental oxygen as needed. - Last dose of azithromycin today - s/p flagyl, and rocephin - CXR 09/24 shows mildly improved findings - CXR 09/26 Bilateral reticular and patchy infiltrates are unchanged. - CXR 09/27 Bilateral patchy airspace opacities, slightly worse in the left lung; no significant change since last XRay 2. Chest pain - CT angio C/A/P- neg for aortic dissection; ct chest shows extensive infiltrates; possibly chronic 3. Hypertension - BP management per nephro 4. s/p fall - hip Xray shows no evidence for fracture We will follow. dc planning per PMD The care for this patient was discussed with my supervising physician. Time spent for this case was approximately 31 minutes. Chiki Koch Sep 30, 2020 10:30
--- NOTE | 2020-09-30 11:59 | NUR ---
DISCHARGE PLANNING PATIENT HAS BEEN REFERRED TO JULI SINGH P [phone] F [phone]
[2020-09-30 12:00] VITALS: BP 113/71
--- NOTE | 2020-09-30 14:50 | Infectious Diseases Prog Note ---
Assessment/Plan Assessment/Plan ASSESSMENT AND PLAN: 1. pneumonia, ? CAP, ? aspiration, sepsis, leukocytosis - ceftriaxone, azithromycin and flagyl - day # 8 - will discontinue - monitor labs and chest x-ray - clinically stable/improved - mild leukocytosis still 2. Dementia, aspiration risk. 3. Dyslipidemia, hyperlipidemia. Treatment per primary care team. 4. Hypertension. Blood pressure treatment per primary care team for hypertension. 5. Hypokalemia. 6. Anemia. 7. SIRS criteria. 8. COVID testing negative. 9. Continue treatment per primary provider and consultants. 10. Orders were noted and entered. 11. No known drug allergies. 12. Social history is negative. 13. Family history is noncontributory. 14. MAR is noted. 15. Case was discussed with RN. Subjective Constitutional: Reports: other - confused ; Denies: fever HEENT: Denies: congestion Respiratory: Denies: shortness of breath Breasts: Denies: discharge Cardiovascular: Denies: chest pain Gastrointestinal/Abdominal: Denies: nausea, vomiting, diarrhea Genitourinary: Reports: other - no mills Neurologic: Reports: confusion; Denies: headache Psychiatric: Reports: other - NA Skin: Denies: rash Hematologic: Denies: bleeding Musculoskeletal: Denies: pain Allergies: Coded Allergies: No Known Allergies (Unverified , 09/21/20) Objective Last 24 Hour Vital Signs Date Time Temp Pulse Resp B/P (MAP) Pulse Ox O2 Delivery O2 Flow Rate FiO2 09/30/20 12:00 97.0 99 20 113/71 (85) 97 09/30/20 08:19 59 124/79 09/30/20 08:18 124/71 09/30/20 08:00 97.2 59 18 124/71 (88) 97 09/30/20 07:41 Room Air 09/30/20 04:00 98.2 89 18 121/72 (88) 98 09/30/20 00:00 97.9 88 18 94/57 (69) 96 09/29/20 21:00 Room Air 09/29/20 20:41 98.0 85 18 116/65 (82) 97 09/29/20 20:41 98.0 97 09/29/20 20:00 98.0 89 18 118/76 (90) 96 09/29/20 16:41 97.8 96 09/29/20 16:00 97.9 80 18 119/66 (83) 97 Height (Feet): 5 Height (Inches): 0.00 Weight (Pounds): 69 General Appearance: no acute distress HEENT: normocephalic, atraumatic, anicteric Respiratory/Chest: lungs clear, normal breath sounds, no respiratory distress Cardiovascular: normal rate, regular rhythm, no gallop/murmur Abdomen: normal bowel sounds, soft, non tender, no organomegaly, non distended Genitourinary: other - no mills Extremities: no cyanosis Skin: no rash 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 Appearance is nonspecific but likely reflects active inflammatory disease. There may be a significant chronic component as well. 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 Possibilities include complicated cysts, hemangiomas, neoplasm. Consider liver specific CT or MRI for better characterization Absent gallbladder. Dilated extrahepatic bile ducts without evidence of downstream obstructive lesion, likely related to age and postcholecystectomy state. Correlate with liver function tests, consider MRCP for better characterization if clinically indicated Mildly ectatic pancreatic duct, significance uncertain Unusual soft tissue opacity lateral to the upper pole right kidney. Significance uncertain, but by appearance may represent a old surgical drain tract to correlate with clinical history Colonic diverticulosis. No evidence of diverticulitis Retained colonic stool Mills catheter, degenerative spondylosis incidentally noted Chest x-ray - 09/24/20 - Procedure: XRAY Chest 1v Indication: Shortness of breath Technique: One view of the chest Comparison: 09/21/2020 Findings: Bilateral infiltrates appear slightly improved, with in particular slightly less airspace consolidation in the mid lungs bilaterally. Nonetheless, considerable disease persists. The pleural spaces remain clear. The heart size is normal. Impression: Slightly improved bilateral infiltrates since previous exam Chest x-ray - 09/27/20 - IMPRESSION: Bilateral patchy airspace opacities, slightly worse in the left lung, not significantly changed given difference in technique. Microbiology Date/Time Source Procedure Growth Status 09/22/20 09:48 Nasopharynx Coronavirus COVID-19 PCR ([facility]) - Final Complete 09/22/20 08:15 Blood Blood Culture - Final NO GROWTH AFTER 5 DAYS Complete Labs Test 09/28/20 19:30 White Blood Count 4.8 K/UL (4.8-10.8) Red Blood Count 3.62 M/UL (4.20-5.40) Hemoglobin 10.3 G/DL (12.0-16.0) Hematocrit 30.1 % (37.0-47.0) Mean Corpuscular Volume 83 FL (80-99) Mean Corpuscular Hemoglobin 28.5 PG (27.0-31.0) Mean Corpuscular Hemoglobin Concent 34.2 G/DL (32.0-36.0) Red Cell Distribution Width 13.8 % (11.6-14.8) Platelet Count 280 K/UL (150-450) Mean Platelet Volume 9.0 FL (6.5-10.1) Neutrophils (%) (Auto) 61.4 % (45.0-75.0) Lymphocytes (%) (Auto) 19.8 % (20.0-45.0) Monocytes (%) (Auto) 9.3 % (1.0-10.0) Eosinophils (%) (Auto) 7.7 % (0.0-3.0) Basophils (%) (Auto) 1.9 % (0.0-2.0) Sodium Level 135 MMOL/L (136-145) Potassium Level 3.9 MMOL/L (3.5-5.1) Chloride Level 103 MMOL/L (98-107) Carbon Dioxide Level 31 MMOL/L (21-32) Anion Gap 1 mmol/L (5-15) Blood Urea Nitrogen 24 mg/dL (7-18) Creatinine 0.9 MG/DL (0.55-1.30) Estimat Glomerular Filtration Rate > 60 mL/min (>60) Glucose Level 144 MG/DL (74-106) Calcium Level 8.5 MG/DL (8.5-10.1) Total Bilirubin 0.3 MG/DL (0.2-1.0) Aspartate Amino Transf (AST/SGOT) 23 U/L (15-37) Alanine Aminotransferase (ALT/SGPT) 20 U/L (12-78) Alkaline Phosphatase 58 U/L (46-116) Total Protein 6.3 G/DL (6.4-8.2) Albumin 2.3 G/DL (3.4-5.0) Globulin 4.0 g/dL Albumin/Globulin Ratio 0.6 (1.0-2.7) Current Medications Medications (Trade) Dose Ordered Sig/Martin Route PRN Reason Start Time Stop Time Status Last Admin Dose Admin Amlodipine Besylate (Norvasc) 10 mg DAILY ORAL 09/23/20 09:00 10/23/20 08:59 09/30/20 08:19 Azithromycin 500 mg/Dextrose 275 ml @ 275 mls/hr Q24HRS IV 09/25/20 01:00 09/30/20 23:59 09/30/20 00:15 Benazepril HCl (Lotensin) 40 mg DAILY ORAL 09/23/20 09:00 10/23/20 08:59 09/30/20 08:18 Heparin Sodium (Porcine) (Heparin 5000 units/ml) 5,000 units EVERY 12 HOURS SUBQ 09/22/20 21:30 11/06/20 21:29 09/30/20 08:20 Memantine (Namenda) 10 mg Q12HR ORAL 09/23/20 09:00 10/23/20 08:59 09/30/20 08:18 Mirtazapine (Remeron) 7.5 mg BEDTIME ORAL 09/23/20 21:00 12/22/20 20:59 09/29/20 20:07 Polyethylene Glycol (Miralax) 17 gm BEDTIME ORAL 09/27/20 21:00 10/27/20 20:59 09/29/20 20:08 Polyethylene Glycol (Miralax) 17 gm DAILYPRN PRN ORAL Constipation 09/27/20 13:30 10/27/20 13:29 Quetiapine Fumarate (SEROqueL) 50 mg QHS ORAL 09/30/20 21:00 11/14/20 20:59 Trazodone HCl (Desyrel) 50 mg BEDTIME ORAL 09/22/20 21:30 10/22/20 21:29 09/29/20 20:12 Shan Arnold MD Sep 30, 2020 14:50
[2020-09-30] MEDS ORDERED: LORazepam Inj 2mg/ml 1ml IV PRN (15:00)
--- NOTE | 2020-09-30 15:00 | NUR ---
NURSE NOTES: notified re:pt very restless/extremely agitated,ativan 0.5 mg.iv given with relief after 30 minutes. Addendum: 09/30/20 at 1940 by COURTNEY ULRICH RN susie) updated re:new home health ordered.
--- NOTE | 2020-09-30 15:03 | NUR ---
ENROLLMENT NURSE NOTE CALL RECEIVED FROM PATIENTS DAUGHTER YANDEL RECINOS ADAMANTLY REQUESTING THAT PATIENT DC TO HOME INSTEAD OF SNF. DTR STATED PATIENTS FAMILY PREFERS FOR PATIENT TO RETURN HOME INSTEAD OF SNF D/T FEARS OF COVID AND POSSIBLE INFECTION TO PATIENT. RISKS AND BENEFITS OF SNF VS HOME DISCUSSED WITH DTR. DTR CONTINUED TO INSIST ON PATIENTS RETURN HOME. DR [place] INFORMED. ACTIVE DC ORDER NOTED. S AMBULANCE TRANSPORTATION SCHEDULED WITH [facility]T [id number] WITH ETA @ 1700 RN ISAAC AWARE
[2020-09-30 16:00] VITALS: BP 106/70
--- NOTE | 2020-09-30 16:46 | NUR ---
NURSE NOTES:dr. saldana returned call,ordered for transfer to tele.supervisor cook house notified. Addendum: 09/30/20 at 2036 by COURTNEY ULRICH RN above notes addressed for another pt.
--- NOTE | 2020-09-30 17:33 | Surgery Progress Note ---
Surgery Progress Note Subjective Symptoms: improved Additional Comments labs improved exam stable no n/v tolerating Objective Last 24 Hour Vital Signs Date Time Temp Pulse Resp B/P (MAP) Pulse Ox O2 Delivery O2 Flow Rate FiO2 09/30/20 16:00 98.1 18 106/70 (82) 96 09/30/20 12:00 97.0 99 20 113/71 (85) 97 09/30/20 08:19 59 124/79 09/30/20 08:18 124/71 09/30/20 08:00 97.2 59 18 124/71 (88) 97 09/30/20 07:41 Room Air 09/30/20 04:00 98.2 89 18 121/72 (88) 98 09/30/20 00:00 97.9 88 18 94/57 (69) 96 09/29/20 21:00 Room Air 09/29/20 20:41 98.0 85 18 116/65 (82) 97 09/29/20 20:41 98.0 97 09/29/20 20:00 98.0 89 18 118/76 (90) 96 I&O Intake and Output 09/29/20 09/30/20 19:00 07:00 Intake Total 700 ml 580 ml Output Total 300 ml Balance 700 ml 280 ml Intake Oral 700 ml 250 ml IV Total 330 ml Output Urine Total 300 ml # Voids 3 2 Cardiovascular: RSR Respiratory: clear Abdomen: soft, non-tender, present bowel sounds Extremities: no edema, no tenderness, no cyanosis Plan Problems: (1) Failure to thrive (2) Malnutrition (3) Chest pain Assessment & Plan: unable to do CTA r/o dissection unlikely given clinical status and exam plain film noted cont bp will monitor Aorta and branches: The thoracic aorta is normal in caliber. No evidence of dissection or aneurysm demonstrated. Normal caliber and branching anatomy of the great neck vessels. No evidence of abdominal aortic aneurysm or dissection. The abdominal visceral vessels are patent and nonstenotic. Patent and nonstenotic bilateral common, external, and proximal internal iliac arteries are the exam protocol was not tailored for evaluation of pulmonary emboli. However, the pulmonary arteries are well opacified, and there are no findings to suggest acute pulmonary embolus demonstrated. Chest: Small focal areas of atelectasis and consolidation are seen in the posterior inferior left upper lobe. More hazy areas of opacity are also seen in the posterior left upper lobe. More extensive consolidation, atelectasis, as well as small irregular nodular opacities are seen in the left lower lobe. Nodular opacities as well as areas of infiltrate are seen in the left upper lobe. Near the base of the right upper lobe, there is suggestion of some tree-in-bud type opacities. The the right middle lobe is completely ectatic. Bronchiectatic air bronchograms within the collapsed right middle lobe suggests that this is due to chronic scarring with cicatrization. Fairly extensive micronodular opacities as well as more patchy opacities and larger nodular opacities are seen throughout the right lower lobe. A large calcified granuloma is seen in the inferior right lower lobe. There is trace pleural fluid on the right. Abdomen pelvis: The liver demonstrates multiple somewhat ill-defined low-attenuation lesions which are not clearly cystic in the right lobe, measuring up to 1.7 cm in diameter. The gallbladder is absent, presumed surgically removed. There is dilatation of the extrahepatic bile ducts, common bile duct measuring up to 9 mm in diameter. There is also ectasia of the pancreatic duct. The pancreas is otherwise unremarkable. The spleen, adrenals are unremarkable. The kidneys demonstrate bilateral cysts. The uterus and adnexal structures are unremarkable. The bladder is empty, contains a Berrios catheter. Lateral to the upper pole of the right kidney and posterior to the right hepatic lobe, there is an unusual soft tissue opacity that measures 2 cm in diameter, which appears to be contiguous with a soft tissue opacity extending through the rib musculature to the skin surface. There is also a slight focal irregularity of the adjacent 10th rib. The appendix is normal. Moderate retained stool is seen throughout the colon, particularly in the ascending colon. There are colonic diverticula. No evidence of diverticulitis. No small bowel distention. No free or loculated intraperitoneal gas or fluid is evident. The bones are unremarkable except for mild degenerative spondylosis changes. IMPRESSION: No evidence of acute aortic dissection or other acute vascular pathology Extensive bilateral pulmonary parenchymal disease, with combination of atelectasis, patchy consolidative opacities, nodular opacities, and tree-in-bud opacities. Appearance is nonspecific but likely reflects active inflammatory disease. There may be a significant chronic component as well. 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 Possibilities include complicated cysts, hemangiomas, neoplasm. Consider liver specific CT or MRI for better characterization Absent gallbladder. Dilated extrahepatic bile ducts without evidence of downstream obstructive lesion, likely related to age and postcholecystectomy state. Correlate with liver function tests, consider MRCP for better characterization if clinically indicated Mildly ectatic pancreatic duct, significance uncertain Unusual soft tissue opacity lateral to the upper pole right kidney. Significance uncertain, but by appearance may represent a old surgical drain tract to correlate with clinical history Colonic diverticulosis. 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 CURRENT DIET: Regular ms finely chopped PO DIET RECOMMENDATIONS--->>> Maintain REGULAR DIET/ Texture per HEAD HOLDER ADDITIONAL RECOMMENDATIONS: 1) Add Ensure Enlive BID 2) Obtain a calibrated bed scale wts 3) Replete lytes-> low phos, mg 4) HEAD HOLDER eval for appropriate texture Shadi Subramanian Sep 30, 2020 17:33
--- NOTE | 2020-09-30 19:10 | NUR ---
NURSE NOTES:discharged to home,p[facility],tech(dilshad vargas)tech spoke to daughter(malcolm)and informed re:pt. 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
--- NOTE | 2020-09-30 21:41 | Neurology Progress Note ---
Interim History Interim History ROS Limited/Unobtainable: Yes Interim History no new deficits dc planning Objective Physical Exam Last Vital Signs Date Time Temp Pulse Resp B/P (MAP) Pulse Ox O2 Delivery O2 Flow Rate FiO2 09/30/20 16:00 98.1 18 106/70 (82) 96 09/30/20 15:00 99 09/30/20 07:41 Room Air Impression/Recommendations Problems: (1) Chest pain (2) Pneumonia (3) Failure to thrive (4) Malnutrition (5) Failure to thrive in adult Diagnostic Impression acute encephalopathy, likely metabolic given sepsis and pneumonia covid ro dementia pt does not have capacity medical support delirium precautions Fox Payne MD Sep 30, 2020 21:41
== END 2020-09-30 19:20 | disposition home or self-care (01) | DRG 871 ==
LOC: EMR 21:08 → 2E 21:13 → EDBEDREQ 09-22 18:22 → 2E 09-26 05:19 → 3E 09-27 16:15
DX: A41.9 Sepsis, unspecified organism (principal); J18.9 Pneumonia, unspecified organism; G93.41 Metabolic encephalopathy; E46 Unspecified protein-calorie malnutrition; Z68.1 Body mass index [BMI] 19.9 or less, adult; Z20.828 Contact with and (suspected) exposure to other viral communicable diseases; I10 Essential (primary) hypertension; E78.5 Hyperlipidemia, unspecified; F03.90 Unspecified dementia, unspecified severity, without behavioral disturbance, psychotic disturbance, mood disturbance, and anxiety; E87.6 Hypokalemia; D64.9 Anemia, unspecified; R62.7 Adult failure to thrive; R33.9 Retention of urine, unspecified
CPT/HCPCS: 36415; 71045; 71275; 74175; 80048; 80053; 81003; 82728; 83615; 83735; 83880; 84100; 84484; 85007; 85025; 85379; 85610; 85730; 87040; 93005; 96365; 96367; 96375; 96376; 99285; U0002